=== PATIENT | male | born 1990 | race Caucasian/White ===

== ENCOUNTER 2020-10-03 09:47 | Outpatient (REF) | payer OTHER, SELFPAY ==
[2020-10-03 10:22] LABS: MANUAL DIFF FLAG NO
[2020-10-03 10:30] LABS: Eosinophils Absolute Auto 0.1 X10*3/uL (0.0-0.4); Eosinophils Percent Auto 2.5 % (0-4); Hematocrit 41.4 % (42-52); Hemoglobin 14.4 g/dl (14.0-18.0); Imm Gran Abs Auto 0.03 X10*3/uL (0.00-0.03); Imm Gran Pct Auto 0.7 % (0.0-0.4); Lymphocytes Absolute Auto 1.5 X10*3/uL (1.2-4.9); Lymphocytes Percent Auto 36.4 % (20-40); Mean Corpuscular HGB Conc 34.8 g/dl (31.0-36.0); Mean Corpuscular Hemoglobin 31.4 pg (27.0-33.0); Mean Corpuscular Volume 90.2 fL (80-98); Mean Platelet Volume 9.3 fL (9.4-12.4); Monocytes Absolute Auto 0.4 X10*3/uL (0.1-1.2); Monocytes Percent Auto 10.1 % (2-11); Neutrophils Percent Auto 49.3 % (45-73); Platelet Count 225 X10*3/uL (160-400); Red Blood Count 4.59 X10*6/uL (4.60-5.80); Red Cell Distribution Width 13.2 % (11.0-16.0); White Blood Count 4.1 X10*3/uL (4.8-10.8)
[2020-10-03 10:44] LABS: Glucose Urine UA 500 MG/DL (NEG); Leukocyte Esterase Urine NEG (NEG); Nitrite Urine NEG (NEG); Specific Gravity - Urine >= 1.030 (1.005-1.025); Urine Blood NEG (NEG); Urine Ketones >=80 MG/DL (NEG); Urine Protein TRACE MG/DL (NEG-TRACE)
[2020-10-03 10:47] LABS: Appearance Urine CLEAR; Color Urine YELLOW
[2020-10-03 11:09] LABS: Microalbum/Creatinine Ratio Ur 103.4 ug/mg cr
[2020-10-03 11:21] LABS: Alanine Aminotransferase 26 U/L (0-40); Albumin Level 4.5 g/dL (3.5-5.0); Alkaline Phosphatase 123 U/L (39-117); Anion Gap 24 (12-20); Aspartate Amino Transferase 17 U/L (5-37); Bilirubin Total 0.6 mg/dL (0.0-1.0); Blood Urea Nitrogen 11 mg/dL (9-16); Calcium 9.4 mg/dL (8.4-10.2); Carbon Dioxide 22 mmol/L (22-29); Chloride 97 mmol/L (96-108); Cholesterol 322 mg/dL; Estimated Glomerular Filt Rate > 60; Glucose Fasting 300 mg/dL (60-99); HDL Cholesterol 26 mg/dL; Potassium 3.5 mmol/l (3.3-5.1); Sodium 139 mmol/L (135-145); Total Protein 7.1 g/dL (6.5-8.0); Triglycerides 799 mg/dL
[2020-10-03 11:35] LABS: TSH reflex Free T4 0.93 mIU/mL (0.32-4.0)
[2020-10-06 20:47] LABS: Glutamic acid decarboxylase Ab 61 IU/mL (<5)
== END 2020-10-03 09:48 | disposition home or self-care (01) ==
LOC: HO.LAB 09:47
PROVIDERS: PCP Internal Medicine; Visit Provider Internal Medicine
DX: E11.9 Type 2 diabetes mellitus without complications (principal); Z79.4 Long term (current) use of insulin; I10 Essential (primary) hypertension
CPT/HCPCS: 36415; 80053; 80061; 81003; 82043; 84443; 84681; 85025; 86341

== ENCOUNTER 2021-02-01 14:55 | Outpatient (REF) | payer OTHER, SELFPAY ==
[2021-02-01 16:38] LABS: Estimated Average Glucose 332 mg/dL; Hemoglobin A1c % 13.2 %
[2021-02-01 16:47] LABS: Alanine Aminotransferase 32 U/L (0-40); Albumin Level 4.8 g/dL (3.5-5.0); Alkaline Phosphatase 119 U/L (39-117); Anion Gap 16 (12-20); Aspartate Amino Transferase 19 U/L (5-37); Bilirubin Total 0.3 mg/dL (0.0-1.0); Blood Urea Nitrogen 13 mg/dL (9-16); Calcium 10.3 mg/dL (8.4-10.2); Carbon Dioxide 29 mmol/L (22-29); Chloride 94 mmol/L (96-108); Cholesterol 210 mg/dL; Estimated Glomerular Filt Rate > 60; Glucose Random 279 mg/dL (60-115); HDL Cholesterol 35 mg/dL; LDL Cholesterol Calculated 118 mg/dl; Potassium 4.1 mmol/L (3.3-5.1); Sodium 135 mmol/L (135-145); Total Protein 7.5 g/dL (6.5-8.0); Triglycerides 288 mg/dL
[2021-02-01 16:59] LABS: Creatinine Urine 56.48 mg/dL
[2021-02-01 17:09] LABS: Free T4 (Free Thyroxine) 1.12 ng/dL (0.71-1.85); Thyroid Stimulating Hormone 0.48 uIU/mL (0.32-4.0); Vitamin D 25-OH Total 23.7 ng/mL (>30)
[2021-02-02 13:37] LABS: Immunoglobulin A 218 mg/dL (47-310)
[2021-02-02 17:41] LABS: LDL Cholesterol Direct 126 mg/dL (<100)
[2021-02-04 22:42] LABS: Transglutaminase Ab IgG 2 U/mL
[2021-02-10 12:47] LABS: Endomysial IgA Antibody Negative (Negative)
== END 2021-02-01 14:56 | disposition home or self-care (01) ==
LOC: HO.LAB 14:55
PROVIDERS: PCP Internal Medicine; Visit Provider Internal Medicine
DX: E10.65 Type 1 diabetes mellitus with hyperglycemia (principal); E78.5 Hyperlipidemia, unspecified; I10 Essential (primary) hypertension; E55.9 Vitamin D deficiency, unspecified; Z79.899 Other long term (current) drug therapy
CPT/HCPCS: 36415; 80053; 80061; 82043; 82306; 82784; 82947; 83036; 83516; 83721; 84439; 84443; 86255; 86256; 99202

== ENCOUNTER 2021-09-14 04:37 | Inpatient (IN) | payer OTHER, SELFPAY ==
[2021-09-14] VITALS (22 sets, daily range): BP systolic 116–194; BP diastolic 57–166; PULSE 108–125; RESP 18–30; TEMP 33.7–38.6; O2SAT 97–100; BMI 26.4
--- NOTE | 2021-09-14 | ECG_ITS ---
Test Reason : HYPERGLYCEMIA Blood Pressure : / mmHG Vent. Rate : 120 BPM Atrial Rate : 120 BPM P-R Int : 152 ms QRS Dur : 106 ms QT Int : 344 ms P-R-T Axes : 077 049 053 degrees QTc Int : 486 ms Poor data quality Sinus tachycardia Incomplete right bundle branch block When compared with ECG of 15-APR-2020 12:11, No significant changes seen Referred By: Fadumo Tay Electronically Signed By:Daniel Lee
--- NOTE | ~2021-09-14 | XR_ITS ---
EXAMINATION: XR CHEST CLINICAL INFORMATION: Fever. COMPARISON: Chest radiograph 04/12/2020. TECHNIQUE: Frontal view of the chest was obtained. FINDINGS: Bilateral supraclavicular subcutaneous emphysema is noted. Pneumomediastinum with scattered gas within the superior mediastinum is identified. Incidental gas extends the level of the aortopulmonary window. The heart size is normal. No effusions or pneumothoraces are identified. Focal airspace opacity is present in the left lung base projection with the anterior segment of the left fourth rib. Mild borderline airspace opacities are noted within the right lung base. XR/XR chest 1V IMPRESSION: *Mild bibasilar airspace opacities suspicious for pneumonia. Findings most pronounced the left lung base. *Pneumomediastinum and bilateral supraclavicular subcutaneous emphysema.
--- NOTE | ~2021-09-14 | XR_ITS ---
EXAMINATION: XR CHEST CLINICAL INFORMATION: Follow-up pneumomediastinum COMPARISON: 09/16/2021 TECHNIQUE: Frontal view of the chest was obtained. FINDINGS: Cardiomediastinum continues that slightly diminished.. Patchy bilateral airspace opacities. Heart and pulmonary vessels normal. XR/XR chest 1V IMPRESSION: Slight decrease in pneumomediastinum. Patchy airspace opacities persist.
--- NOTE | ~2021-09-14 | XR_ITS ---
EXAMINATION: XR CHEST CLINICAL INFORMATION: Pneumomediastinum. COMPARISON: Chest radiograph 09/15/2021 TECHNIQUE: Frontal view of the chest was obtained. FINDINGS: Bilateral cervical and supraclavicular subcutaneous emphysema is noted along with pneumomediastinum with findings most pronounced in the superior mediastinum. No pneumothoraces are identified. Patchy airspace opacities are present within the lung bases with findings most pronounced in the left lung base. Normal heart size. XR/XR chest 1V IMPRESSION: *No change compared with 09/15/2021. *Multifocal bibasilar airspace disease with findings most pronounced the left lung base suspicious for pneumonia. *Unchanged pneumomediastinum and bilateral cervical and supraclavicular subcutaneous emphysema.
--- NOTE | ~2021-09-14 | CT_ITS ---
EXAMINATION: CT ANGIOGRAM OF THE CHEST WITH AND WITHOUT CONTRAST (CT PULMONARY ANGIOGRAM FOR PE) CLINICAL INFORMATION: Reason for Exam +ddimer COMPARISON: Chest radiograph 09/16/2021, 09/15/2021. TECHNIQUE: Prior to contrast administration, noncontrast localization images were obtained. Subsequently, multidetector volumetric imaging was performed from the thoracic inlet to below the diaphragms following the administration of 97 mL Omnipaque 350 intravenous contrast. No contrast reaction reported Sagittal, coronal, and MIP oblique sagittal reformatted images were obtained on the CT workstation, uploaded to PACS, and reviewed. This CT examination was performed using dose optimization techniques as appropriate, variously including the following: *Automated exposure control *Adjustment of mA and/or kV according to patient size (this includes techniques or standardized protocols for targeted exams where dose is matched to indication/reason for exam; i.e. extremities or head) *Use of iterative reconstruction technique Total exam dose-length product 367 mGy-cm FINDINGS: Pulmonary arterial system: High density intraluminal opacification is present within the pulmonary arteries. No intraluminal filling defects are noted within the visualized pulmonary arterial system to suggest the presence of pulmonary emboli. The main and central pulmonary arteries are normal in caliber. Lungs and pleura: Multifocal groundglass and crazy paving type reticular opacities are present throughout the lungs. Findings are most pronounced in the left lung base. No pneumothoraces. No pleural effusions. Mediastinum and chest wall: Pneumomediastinum primarily within the superior mediastinum is present. The heart size is normal. No pericardial thickening or fluid collections. No mediastinal lymphadenopathy. The thyroid is partially included in the image [id number] and is normal in appearance. Pneumomediastinum is contiguous with soft tissue emphysematous changes extending into the visualized neck and supraclavicular regions. Visualized abdominal structures: Normal adrenal glands. Osseous structures: Minimal scattered anterior endplate osteophytosis of the visualized thoracic and lumbar spine. CT/CT angio chest PE protocol IMPRESSION: *CT pulmonary angiogram negative for pulmonary emboli. *Multifocal bilateral alveolar and interstitial disease of the lungs suspicious for COVID-19 infection. *Pneumomediastinum predominantly within the superior mediastinum extending into the visualized neck and supraclavicular soft tissues. Findings appear stable compared with chest radiograph 09/15/2021 8:12 AM. VTE: negative
[2021-09-14] MEDS: 0.9 % Sodium Chloride 1,000 ML 999 ML IV ×2 (04:50→05:58)
[2021-09-14 04:51] LABS: Glucose, Whole Blood > 600 mg/dL (60-115)
[2021-09-14 04:58] LABS: Glucose, Whole Blood > 600 mg/dL (60-115)
--- NOTE | 2021-09-14 04:58 | ED_ITS ---
HPI - SOB/Dyspnea General Chief Complaint: Dyspnea Stated Complaint: COVID Time Seen by Provider: 09/14/21 04:42 Source: patient Mode of arrival: ambulatory History of Present Illness HPI Narrative: 31-year-old male who is type 1 diabetic presents after being diagnosed with COVID prior to arrival with complaints significant shortness of breath but otherwise denies fevers, chills reports fatigue and states he has continued to use his insulin as prescribed. Related Data Home Medications Medication Instructions Recorded Confirmed insulin aspart U-100 100 unit/mL 15 unit SUBCUT TID ml 02/11/21 02/11/21 (3 mL) subcutaneous pen (Novolog Flexpen U-100 Insulin aspart) Previous Rx's Medication Instructions Recorded atorvastatin 40 mg tablet 40 mg PO DAILY 30 Days #30 tab 02/01/21 lancets 28 gauge (FreeStyle #100 ea 02/09/21 Lancets) amlodipine 5 mg tablet 5 mg PO DAILY #30 tab 04/03/21 blood sugar diagnostic (FreeStyle 1 strip MISCELLANEOUS TID #100 cap 04/03/21 Lite Strips) pen needle, diabetic 32 gauge x 1 ea SUBCUT QID #120 ea 04/09/21/32 (BD Ultra-Fine Shraddha Pen Needle) insulin glargine 100 unit/mL (3 28 unit (0.28 mL) SUBCUT QPM #15 ml 05/25/21 mL) subcutaneous pen (Lantus Solostar U-100 Insulin) lisinopril 20 mg tablet 20 mg PO DAILY #90 tab 07/26/21 Allergies Allergy/AdvReac Type Severity Reaction Status Date / Time No Known Allergies Allergy Verified 09/14/21 05:01 [No Known Allergies*] Review of Systems Review of Systems: Pertinent positives and negatives as stated in HPI 10 point review of systems is otherwise negative. [facility] Past Medical History Source: nursing notes reviewed Medical History HLD (hyperlipidemia) HTN (hypertension) Overweight (BMI 25.0-29.9) T1DM (type 1 diabetes mellitus) Vitamin D deficiency Surgical History No significant past surgical history Family History Family History Father Diabetes mellitus Hypertension Mother Hypertension Social History Social History Alcohol intake: current Alcohol intake frequency: a few times a week Substance Use Type: Marijuana Advance Directives: No Physical Exam Vital Signs: Vital Signs: Last Vital Signs Temp 92.8 F L 09/14/21 06:34 Pulse 124 H 09/14/21 06:34 Resp 23 H 09/14/21 06:34 BP 170/102 H 09/14/21 06:34 Pulse Ox 100 09/14/21 06:34 Oxygen Flow Rate 2 09/14/21 04:53 BMI result Body Mass Index 26.4 VITAL SIGNS: Reviewed. GENERAL: Well developed, well nourished, moderate-severe distress. HEAD: Normocephalic/atraumatic EYES: PERRLA, EOMI OROPHARYNX: no oral lesions noted, posterior pharynx clear, dry mucosa NECK: Supple, no adenopathy LUNGS: Normal breath sounds, who small breathing, significant retractions. SpO 2<100> CARDIOVASCULAR: Regular rate and rhythm without noted murmurs ABDOMEN: Soft, non-tender, non-distended with bowel sounds. SKIN: Inspection of the skin reveals no rashes, but diaphoretic and pale NEUROLOGIC: Alert and oriented x 4. Course Course Course Narrative: 31-year-old male with shortness of breath secondary to DKA, began receiving aggressive IV fluid resuscitation and when lab results were returned patient was started on IV insulin protocol and case was discussed with endodontics dentist. Patient is COVID-19 positive and intensivists accepted admission. MDM - SOB/Dyspnea Lab Data Result diagrams: 09/14/21 06:48 09/14/21 04:48 Labs: Lab Results 09/14/21 09/14/21 09/14/21 Range/Units 04:45 04:48 04:48 WBC 15.3 H (4.8-10.8) X10*3/uL RBC 5.45 (4.60-5.80) X10*6/uL Hgb 17.2 (14.0-18.0) g/dl Hct 52.9 H (42.0-52.0) % MCV 97.1 (80.0-98.0) fL MCH 31.6 (27.0-33.0) pg MCHC 32.5 (31.0-36.0) g/dl RDW 11.9 (11.0-16.0) % Plt Count 310 (160-400) X10*3/uL MPV 9.4 (9.4-12.4) fL Immature Gran % (Auto) 2.1 H (0.0-0.4) % Neut % (Auto) 70.6 (45-73) % Lymph % (Auto) 13.5 L (20-40) % [place] % (Auto) 13.5 H (2-11) % Eos % (Auto) 0.0 (0-4) % Baso % (Auto) 0.3 (0-2) % Lymph # (Auto) 2.1 (1.2-4.9) X10*3/uL [place] # (Auto) 2.1 H (0.1-1.2) X10*3/uL Eos # (Auto) 0.0 (0.0-0.4) X10*3/uL Baso # (Auto) 0.0 (0.0-0.2) X10*3/uL Abs Immat Gran (auto) 0.32 H (0.00-0.03) X10*3/uL Absolute Neuts (auto) 10.8 H (2.0-8.3) x10*3/uL Absolute Nucleated RBC 0.000 (0.0-0.012) X10*3/uL Nucleated RBC % (auto) 0.0 (0.0-0.2) /100WBC Smear Tech's Comments VERIFIED VBG pH (7.32-7.43) VBG pCO2 mmHg VBG pO2 mmHg VBG HCO3 (22-26) mmol/L VBG O2 Saturation % VBG Base Excess mmol/L Sodium 131 L (135-145) mmol/L Potassium 4.9 (3.3-5.1) mmol/L Chloride 92 L (96-108) mmol/L Carbon Dioxide < 5 L* D (22-29) mmol/L Anion Gap Not Reportable BUN 27 H (9-16) mg/dL Creatinine 2.47 H (0.5-1.4) mg/dL Estim Creat Clear Calc 48.4 Estimated GFR 31 POC Glucose > 600 H* (60-115) mg/dL Random Glucose 834 H* (60-115) mg/dL Lactic Acid (0.5-2.0) mmol/L Calcium 9.5 D (8.4-10.2) mg/dL Total Bilirubin 0.4 (0.0-1.0) mg/dL AST 26 (5-37) U/L ALT 29 (0-40) U/L Alkaline Phosphatase 119 H (39-117) U/L Total Protein 8.5 H (6.5-8.0) g/dL Albumin 4.7 (3.5-5.0) g/dL Urine Color Urine Appearance Urine pH (5.0-8.0) Ur Specific [place] (1.005-1.025) Urine Protein (NEG-TRACE) MG/DL Urine Glucose (UA) (NEG) MG/DL Urine Ketones (NEG) MG/DL Urine Blood (NEG) Urine Nitrite (NEG) Ur Leukocyte Esterase (NEG) Urine RBC (0) /HPF Urine WBC (0-4) /HPF Ur Squamous Epith Cells /LPF Urine Bacteria /LPF Hyaline Casts /LPF Granular Casts /LPF Acetone, Qual Large H (Negative) COVID-19 (LITA) (Negative) COVID-19 Clin Com 09/14/21 09/14/21 09/14/21 Range/Units 04:48 04:53 04:54 WBC (4.8-10.8) X10*3/uL RBC (4.60-5.80) X10*6/uL Hgb (14.0-18.0) g/dl Hct (42.0-52.0) % MCV (80.0-98.0) fL MCH (27.0-33.0) pg MCHC (31.0-36.0) g/dl RDW (11.0-16.0) % Plt Count (160-400) X10*3/uL MPV (9.4-12.4) fL Immature Gran % (Auto) (0.0-0.4) % Neut % (Auto) (45-73) % Lymph % (Auto) (20-40) % [place] % (Auto) (2-11) % Eos % (Auto) (0-4) % Baso % (Auto) (0-2) % Lymph # (Auto) (1.2-4.9) X10*3/uL [place] # (Auto) (0.1-1.2) X10*3/uL Eos # (Auto) (0.0-0.4) X10*3/uL Baso # (Auto) (0.0-0.2) X10*3/uL Abs Immat Gran (auto) (0.00-0.03) X10*3/uL Absolute Neuts (auto) (2.0-8.3) x10*3/uL Absolute Nucleated RBC (0.0-0.012) X10*3/uL Nucleated RBC % (auto) (0.0-0.2) /100WBC Smear Tech's Comments VBG pH 6.86 L* (7.32-7.43) VBG pCO2 12 mmHg VBG pO2 95 mmHg VBG HCO3 2 L (22-26) mmol/L VBG O2 Saturation 94.0 % VBG Base Excess -29.9 mmol/L Sodium (135-145) mmol/L Potassium (3.3-5.1) mmol/L Chloride (96-108) mmol/L Carbon Dioxide (22-29) mmol/L Anion Gap BUN (9-16) mg/dL Creatinine (0.5-1.4) mg/dL Estim Creat Clear Calc Estimated GFR POC Glucose > 600 H* (60-115) mg/dL Random Glucose (60-115) mg/dL Lactic Acid 8.2 H* (0.5-2.0) mmol/L Calcium (8.4-10.2) mg/dL Total Bilirubin (0.0-1.0) mg/dL AST (5-37) U/L ALT (0-40) U/L Alkaline Phosphatase (39-117) U/L Total Protein (6.5-8.0) g/dL Albumin (3.5-5.0) g/dL Urine Color Urine Appearance Urine pH (5.0-8.0) Ur Specific [place] (1.005-1.025) Urine Protein (NEG-TRACE) MG/DL Urine Glucose (UA) (NEG) MG/DL Urine Ketones (NEG) MG/DL Urine Blood (NEG) Urine Nitrite (NEG) Ur Leukocyte Esterase (NEG) Urine RBC (0) /HPF Urine WBC (0-4) /HPF Ur Squamous Epith Cells /LPF Urine Bacteria /LPF Hyaline Casts /LPF Granular Casts /LPF Acetone, Qual (Negative) COVID-19 (LITA) (Negative) COVID-19 Clin Com 09/14/21 09/14/21 Range/Units 04:58 05:38 WBC (4.8-10.8) X10*3/uL RBC (4.60-5.80) X10*6/uL Hgb (14.0-18.0) g/dl Hct (42.0-52.0) % MCV (80.0-98.0) fL MCH (27.0-33.0) pg MCHC (31.0-36.0) g/dl RDW (11.0-16.0) % Plt Count (160-400) X10*3/uL MPV (9.4-12.4) fL Immature Gran % (Auto) (0.0-0.4) % Neut % (Auto) (45-73) % Lymph % (Auto) (20-40) % [place] % (Auto) (2-11) % Eos % (Auto) (0-4) % Baso % (Auto) (0-2) % Lymph # (Auto) (1.2-4.9) X10*3/uL [place] # (Auto) (0.1-1.2) X10*3/uL Eos # (Auto) (0.0-0.4) X10*3/uL Baso # (Auto) (0.0-0.2) X10*3/uL Abs Immat Gran (auto) (0.00-0.03) X10*3/uL Absolute Neuts (auto) (2.0-8.3) x10*3/uL Absolute Nucleated RBC (0.0-0.012) X10*3/uL Nucleated RBC % (auto) (0.0-0.2) /100WBC Smear Tech's Comments VBG pH (7.32-7.43) VBG pCO2 mmHg VBG pO2 mmHg VBG HCO3 (22-26) mmol/L VBG O2 Saturation % VBG Base Excess mmol/L Sodium (135-145) mmol/L Potassium (3.3-5.1) mmol/L Chloride (96-108) mmol/L Carbon Dioxide (22-29) mmol/L Anion Gap BUN (9-16) mg/dL Creatinine (0.5-1.4) mg/dL Estim Creat Clear Calc Estimated GFR POC Glucose (60-115) mg/dL Random Glucose (60-115) mg/dL Lactic Acid (0.5-2.0) mmol/L Calcium (8.4-10.2) mg/dL Total Bilirubin (0.0-1.0) mg/dL AST (5-37) U/L ALT (0-40) U/L Alkaline Phosphatase (39-117) U/L Total Protein (6.5-8.0) g/dL Albumin (3.5-5.0) g/dL Urine Color YELLOW Urine Appearance CLEAR Urine pH 5.5 (5.0-8.0) Ur Specific [place] >= 1.030 H (1.005-1.025) Urine Protein 1+ H (NEG-TRACE) MG/DL Urine Glucose (UA) >=1000 H (NEG) MG/DL Urine Ketones >=80 (NEG) MG/DL Urine Blood 1+ H (NEG) Urine Nitrite NEG (NEG) Ur Leukocyte Esterase NEG (NEG) Urine RBC 1-4 (0) /HPF Urine WBC 1-4 (0-4) /HPF Ur Squamous Epith Cells 1+ /LPF Urine Bacteria 1+ /LPF Hyaline Casts 1-4 /LPF Granular Casts 5-9 /LPF Acetone, Qual (Negative) COVID-19 (LITA) Positive A (Negative) COVID-19 Clin Com See Note ECG Data Attestation: I personally reviewed and interpreted this ECG as follows: Prior ECG tracings: not available for review Interpretation: Sinus tachycardia, HR-120, no STEMI, TX/QTC a within normal limits. Discharge Plan Discharge Clinical Impression: DKA (diabetic ketoacidosis), COVID-19 Patient Disposition: Admitted As Inpatient
[2021-09-14 05:06] LABS: Basophils Percent Auto 0.3 % (0-2); Hematocrit 52.9 % (42.0-52.0); Hemoglobin 17.2 g/dl (14.0-18.0); Imm Gran Abs Auto 0.32 X10*3/uL (0.00-0.03); Imm Gran Pct Auto 2.1 % (0.0-0.4); Lymphocytes Absolute Auto 2.1 X10*3/uL (1.2-4.9); Lymphocytes Percent Auto 13.5 % (20-40); MANUAL DIFF FLAG SCAN; Mean Corpuscular HGB Conc 32.5 g/dl (31.0-36.0); Mean Corpuscular Hemoglobin 31.6 pg (27.0-33.0); Mean Corpuscular Volume 97.1 fL (80.0-98.0); Mean Platelet Volume 9.4 fL (9.4-12.4); Monocytes Absolute Auto 2.1 X10*3/uL (0.1-1.2); Monocytes Percent Auto 13.5 % (2-11); Neutrophils Absolute Auto 10.8 x10*3/uL (2.0-8.3); Neutrophils Percent Auto 70.6 % (45-73); Platelet Count 310 X10*3/uL (160-400); Red Blood Count 5.45 X10*6/uL (4.60-5.80); Red Cell Distribution Width 11.9 % (11.0-16.0); SCAN SMEAR FLAG 1; White Blood Count 15.3 X10*3/uL (4.8-10.8)
[2021-09-14 05:11] LABS: VBG Base Excess -29.9 mmol/L; VBG HCO3 2 mmol/L (22-26); VBG pCO2 12 mmHg; VBG pO2 95 mmHg
[2021-09-14 05:11] LABS: Venous Blood Gas Refer to POC result
[2021-09-14 05:12] LABS: VBG pH 6.86 (7.32-7.43)
[2021-09-14 05:14] LABS: Lactic Acid 8.2 mmol/L (0.5-2.0)
[2021-09-14 05:15] LABS: SLIDE REVIEW VERIFIED
[2021-09-14] MEDS: 0.9 % Sodium Chloride 2,000 ML 999 ML IV (05:19)
[2021-09-14 05:20] LABS: Acetone, serum QL Large (Negative)
[2021-09-14 05:24] LABS: Alanine Aminotransferase 29 U/L (0-40); Albumin Level 4.7 g/dL (3.5-5.0); Alkaline Phosphatase 119 U/L (39-117); Aspartate Amino Transferase 26 U/L (5-37); Bilirubin Total 0.4 mg/dL (0.0-1.0); Blood Urea Nitrogen 27 mg/dL (9-16); Calcium 9.5 mg/dL (8.4-10.2); Carbon Dioxide < 5 mmol/L (22-29); Chloride 92 mmol/L (96-108); Creatinine Clr Calc Pharmacy 48.4; Estimated Glomerular Filt Rate 31; Potassium 4.9 mmol/L (3.3-5.1); Sodium 131 mmol/L (135-145); Total Protein 8.5 g/dL (6.5-8.0)
[2021-09-14 05:26] LABS: COVID-19 Test Positive (Negative)
[2021-09-14 05:35] LABS: Glucose Random 834 mg/dL (60-115)
[2021-09-14 05:45] LABS: Appearance Urine CLEAR; Color Urine YELLOW; Glucose Urine UA >=1000 MG/DL (NEG); Leukocyte Esterase Urine NEG (NEG); Nitrite Urine NEG (NEG); PH 5.5 (5.0-8.0); Specific Gravity - Urine >= 1.030 (1.005-1.025); UACC Culture Trigger NO; Urine Blood 1+ (NEG); Urine Ketones >=80 MG/DL (NEG); Urine Protein 1+ MG/DL (NEG-TRACE)
[2021-09-14] MEDS: Insulin Regular, Human 100 UNIT/ML 3 ML VIAL 10 UNIT IVPUSH (05:47)
[2021-09-14] MEDS: Insulin Regular/NS 100 UNIT/100 ML PLAST..BAG 8 UNIT IVCONT (05:52)
[2021-09-14 05:59] LABS: Cancel Lactic Acid Canceled
[2021-09-14 06:01] LABS: Bacteria Urine 1+ /LPF; Squamous Epithelial Cell Urine 1+ /LPF
--- NOTE | 2021-09-14 06:10 | PC.NURSE ---
Per Dr Tay, Dr Horton wants insulin increased from 8 units/hr to 10 units/hr, wants only 3L of NS and then 4th L to be LR. This RN to medicate per MAR
[2021-09-14] MEDS: Lactated Ringers 1,000 ML 200 ML IVCONT ×2 (06:16→15:17)
[2021-09-14] MEDS: Cholecalciferol (Vitamin D3) 25 MCG TABLET 50 MCG PO (06:21)
[2021-09-14] MEDS: Famotidine/PF 20 MG/2 ML VIAL IVPUSH (06:21)
[2021-09-14] MEDS: Potassium Chloride Packet 20 MEQ PACKET 40 MEQ PO ×2 (06:22→16:41)
--- NOTE | 2021-09-14 06:29 | PM.CCHP ---
History of Present Illness Date of Service: 09/14/21 Attending physician on admission: Francois Horton Chief Complaint: dyspnea Patient is a 31-year-old male with a past medical history of type 1 diabetes, hypertension, hyperlipidemia, vitamin-D deficiency and a recent diagnosis of COVID-19 who is complaining of shortness of breath, headache, abdominal pain, nausea and vomiting. Patient states he has been vomiting every 2 hours for the last 2 days. He started feeling these symptoms 2 days ago and was tested yesterday for COVID-19, he tested positive. He states he takes 25 units of Lantus each night along with NovoLog according to his sliding scale. He states the last time he took his insulin was a last evening, 25U Lantus. He has been a T1D for 1.5years. He also states he takes blood pressure medication and thinks it could be lisinopril but he is unsure of the dose. He denies any chest pain, fevers, chills or body aches. Review of Systems Review of Systems: Yes all other systems are reviewed and are negative PMFSH Past Medical History Medical History HLD (hyperlipidemia) HTN (hypertension) Overweight (BMI 25.0-29.9) T1DM (type 1 diabetes mellitus) Vitamin D deficiency Family History Family History Father Diabetes mellitus Hypertension Mother Hypertension Surgical History Surgical History No significant past surgical history Social History Social History Alcohol intake: current Alcohol intake frequency: a few times a week Substance Use Type: Marijuana Advance Directives: No Meds Allergies Allergy/AdvReac Type Severity Reaction Status Date / Time No Known Allergies Allergy Verified 09/14/21 05:01 [No Known Allergies*] Active Medications: Current Medications Sodium Chloride (Ns) 2,000 mls @ 999 mls/hr IV .Q2H1M STA Stop: 09/14/21 07:14 Last Admin: 09/14/21 05:19 Dose: 999 mls/hr Documented by: Insulin Human Regular (Myxredlin) 100 unit in 100 mls @ 10 mls/hr IVCONT .Q10H SMILEY; Protocol Last Titration: 09/14/21 06:12 Dose: 10 units/hr, 10 mls/hr Documented by: Sodium Chloride (Ns) 1,000 mls @ 999 mls/hr IV .Q1H1M SMILEY Stop: 09/14/21 07:00 Last Infusion: 09/14/21 06:13 Dose: Infused Documented by: Lactated Ringer's (Lr) 1,000 mls @ 200 mls/hr IVCONT .Q5H SMILEY Last Admin: 09/14/21 06:16 Dose: 200 mls/hr Documented by: Pharmacy Consult (Consult Rx Perform Med Rec) 1 each MISCELLANE ONCE PRN PRN Reason: Consult order Home Medications Medication Instructions Recorded Confirmed Last Taken Type insulin aspart U-100 100 unit/mL 15 unit SUBCUT TID ml 02/11/21 02/11/21 Unknown History (3 mL) subcutaneous pen (Novolog Flexpen U-100 Insulin aspart) Physical Exam Vital Signs: Vital Signs: Last Vital Signs Pulse 118 H 09/14/21 05:42 Resp 30 H 09/14/21 05:42 BP 179/108 H 09/14/21 05:42 Pulse Ox 100 09/14/21 05:42 Oxygen Flow Rate 2 09/14/21 04:53 BMI result Body Mass Index 26.4 Const: General: cooperative, well developed, acute distress (tachypneic) and tired appearing Nutritional Appearance: average body habitus Orientation/consciousness: patient oriented x3 Limitations: no limitations HENMT: Head: Yes normal to inspection Mouth: mucous membranes dry (dry lips) Eyes: General: appearance normal, both eyes and all related structures Pupils: Equal, round and reactive pupils present EOM: EOMs intact bilaterally Neck: Neck: Yes normal visual inspection and Yes full ROM Resp: Effort & Inspection: able to speak in complete sentences and tachypneic (Kussmaul breathing) Auscultation: clear to auscultation bilaterally Cardio: Rate: tachycardic Rhythm: regular rhythm Heart sounds: normal S1 and S2 GI: Inspection: Yes normal to inspection Palpation (GI): Soft to palpation and nontender Skin: General skin exam: no rashes or lesions noted Neuro: General: patient oriented x3 Cranial nerves: Yes Equal, round and reactive pupils present Extrem: General: Yes normal to inspection and Yes no pedal edema Results Labs CBC and Chem 7: 09/14/21 04:48 09/14/21 04:48 Labs: Laboratory Results - last 24 hr 09/14/21 09/14/21 09/14/21 04:45 04:48 04:48 MCV 97.1 MCH 31.6 MCHC 32.5 RDW 11.9 Plt Count 310 MPV 9.4 Immature Gran % (Auto) 2.1 H Neut % (Auto) 70.6 Lymph % (Auto) 13.5 L [place] % (Auto) 13.5 H Eos % (Auto) 0.0 Baso % (Auto) 0.3 Lymph # (Auto) 2.1 [place] # (Auto) 2.1 H Eos # (Auto) 0.0 Baso # (Auto) 0.0 Abs Immat Gran (auto) 0.32 H Absolute Neuts (auto) 10.8 H Absolute Nucleated RBC 0.000 Nucleated RBC % (auto) 0.0 Smear Tech's Comments VERIFIED VBG pH VBG pCO2 VBG pO2 VBG HCO3 VBG O2 Saturation VBG Base Excess Anion Gap Not Reportable Estim Creat Clear Calc 48.4 Estimated GFR 31 POC Glucose > 600 H* Random Glucose 834 H* Lactic Acid Calcium 9.5 D Total Bilirubin 0.4 AST 26 ALT 29 Alkaline Phosphatase 119 H Total Protein 8.5 H Albumin 4.7 Urine Color Urine Appearance Urine pH Ur Specific [place] Urine Protein Urine Glucose (UA) Urine Ketones Urine Blood Urine Nitrite Ur Leukocyte Esterase Urine RBC Urine WBC Ur Squamous Epith Cells Urine Bacteria Hyaline Casts Granular Casts Acetone, Qual Large H COVID-19 (LITA) COVID-19 Clin Com 09/14/21 09/14/21 09/14/21 04:48 04:53 04:54 MCV MCH MCHC RDW Plt Count MPV Immature Gran % (Auto) Neut % (Auto) Lymph % (Auto) [place] % (Auto) Eos % (Auto) Baso % (Auto) Lymph # (Auto) [place] # (Auto) Eos # (Auto) Baso # (Auto) Abs Immat Gran (auto) Absolute Neuts (auto) Absolute Nucleated RBC Nucleated RBC % (auto) Smear Tech's Comments VBG pH 6.86 L* VBG pCO2 12 VBG pO2 95 VBG HCO3 2 L VBG O2 Saturation 94.0 VBG Base Excess -29.9 Anion Gap Estim Creat Clear Calc Estimated GFR POC Glucose > 600 H* Random Glucose Lactic Acid 8.2 H* Calcium Total Bilirubin AST ALT Alkaline Phosphatase Total Protein Albumin Urine Color Urine Appearance Urine pH Ur Specific [place] Urine Protein Urine Glucose (UA) Urine Ketones Urine Blood Urine Nitrite Ur Leukocyte Esterase Urine RBC Urine WBC Ur Squamous Epith Cells Urine Bacteria Hyaline Casts Granular Casts Acetone, Qual COVID-19 (LITA) COVID-19 Clin Com 09/14/21 09/14/21 04:58 05:38 MCV MCH MCHC RDW Plt Count MPV Immature Gran % (Auto) Neut % (Auto) Lymph % (Auto) [place] % (Auto) Eos % (Auto) Baso % (Auto) Lymph # (Auto) [place] # (Auto) Eos # (Auto) Baso # (Auto) Abs Immat Gran (auto) Absolute Neuts (auto) Absolute Nucleated RBC Nucleated RBC % (auto) Smear Tech's Comments VBG pH VBG pCO2 VBG pO2 VBG HCO3 VBG O2 Saturation VBG Base Excess Anion Gap Estim Creat Clear Calc Estimated GFR POC Glucose Random Glucose Lactic Acid Calcium Total Bilirubin AST ALT Alkaline Phosphatase Total Protein Albumin Urine Color YELLOW Urine Appearance CLEAR Urine pH 5.5 Ur Specific [place] >= 1.030 H Urine Protein 1+ H Urine Glucose (UA) >=1000 H Urine Ketones >=80 Urine Blood 1+ H Urine Nitrite NEG Ur Leukocyte Esterase NEG Urine RBC 1-4 Urine WBC 1-4 Ur Squamous Epith Cells 1+ Urine Bacteria 1+ Hyaline Casts 1-4 Granular Casts 5-9 Acetone, Qual COVID-19 (LITA) Positive A COVID-19 Clin Com See Note Assessment and Plan (1) DKA (diabetic ketoacidosis): Status: Acute Fluids, insulin, monitor labs, replace K as needed (2) HTN (hypertension): Qualifiers: Hypertension type: unspecified Qualified Code(s): I10 - Essential (primary) hypertension Status: Acute continue home meds (3) COVID-19: Status: Acute Monitor symptoms
--- NOTE | 2021-09-14 06:34 | PC.NURSE ---
unable to get temp on arrival d/t kussmaul resps and inability for pt to keep mouth closed long enough.
--- NOTE | 2021-09-14 06:40 | PC.NURSE ---
anthony aware of core temp still reading 92.8 pt bundled with warm blankets. no julian hugger blankets in stock room, ICU being contacted for supplies.
--- NOTE | 2021-09-14 06:48 | PC.NURSE ---
This RN rechecked pt's BGL, still reading HI. glucometer quality assurance inspector performed, POC to be reassessed again. Dr Horton TT with results. Phleb at bedside collecting labs.
--- NOTE | 2021-09-14 06:49 | PC.NURSE ---
Per Dr Horton, continue with 10U/hr insulin gtt.
--- NOTE | 2021-09-14 06:51 | PC.NURSE ---
Humble Malagon RN at bedside placing pt on julian huggzuleima
--- NOTE | 2021-09-14 06:56 | PC.NURSE ---
Repeat POC BGL is [address] Horton TT to be made aware, awaiting reply
[2021-09-14 06:58] LABS: Hematocrit 48.6 % (42.0-52.0)
[2021-09-14 07:00] LABS: Glucose, Whole Blood 538 mg/dL (60-115)
[2021-09-14 07:00] LABS: Glucose, Whole Blood > 600 mg/dL (60-115)
--- NOTE | 2021-09-14 07:01 | PC.NURSE ---
per Stemp continue at 10u/hr and recheck sugar in 1h
[2021-09-14 07:45] LABS: Blood Urea Nitrogen 25 mg/dL (9-16); Calcium 8.2 mg/dL (8.4-10.2); Carbon Dioxide < 5 mmol/L (22-29); Chloride 106 mmol/L (96-108); Creatinine Clr Calc Pharmacy 62.3; Estimated Glomerular Filt Rate 42; Glucose Random 661 mg/dL (60-115); Magnesium 2.6 mg/dL (1.6-2.6); Phosphorus 5.5 mg/dL (2.7-4.5); Potassium 5.1 mmol/L (3.3-5.1); Sodium 135 mmol/L (135-145)
[2021-09-14 08:21] LABS: Glucose, Whole Blood 447 mg/dL (60-115)
[2021-09-14 09:00] LABS: Glucose, Whole Blood 371 mg/dL (60-115)
--- NOTE | 2021-09-14 09:17 | PHA.MEDREC ---
Pharmacy Consult ? Medication Reconciliation Pharmacy has completed the medication reconciliation.
[2021-09-14] MEDS: lisinopriL 20 MG TABLET PO (09:38)
[2021-09-14] MEDS: amLODIPine Besylate 5 MG TABLET PO (09:38)
[2021-09-14] MEDS: Insulin Regular/NS 100 UNIT/100 ML PLAST..BAG IVCONT ×2 (09:39→13:00)
--- NOTE | 2021-09-14 10:03 | P.PNCC_ITS ---
Subjective Subjective Date of Service: 09/14/21 Interval History: 31 yo M admitted to ICU with DKA. Usual treatment. Doing well so far. The patient tested positive for COVID yesterday, and is so far asymptomatic, at least as far as respiratory symptoms go. I will start him on the [facility] cc post exposure prophylaxis protocol. I've written him for hydroxychloroquine, ivermectin (q48 hour x 2 doses), aspirin, vitamin-D, vitamin-C, and Pepcid. I've discussed all that with him and he has given me his consent. Critical Care Time (minutes): 0 Physical Exam Vital Signs: Vital Signs: Last Vital Signs Temp 98.4 F 09/14/21 09:00 Pulse 123 H 09/14/21 09:38 Resp 29 H 09/14/21 09:00 BP 177/105 H 09/14/21 09:38 Pulse Ox 99 09/14/21 09:00 Oxygen Flow Rate 2 09/14/21 04:53 BMI result Body Mass Index 26.4 Objective Data Labs CBC & Chem 7: 09/14/21 06:48 09/14/21 06:48 Labs: Laboratory Results - last 24 hr 09/14/21 09/14/21 09/14/21 04:45 04:48 04:48 WBC 15.3 H RBC 5.45 Hgb 17.2 Hct 52.9 H MCV 97.1 MCH 31.6 MCHC 32.5 RDW 11.9 Plt Count 310 MPV 9.4 Immature Gran % (Auto) 2.1 H Neut % (Auto) 70.6 Lymph % (Auto) 13.5 L [place] % (Auto) 13.5 H Eos % (Auto) 0.0 Baso % (Auto) 0.3 Lymph # (Auto) 2.1 [place] # (Auto) 2.1 H Eos # (Auto) 0.0 Baso # (Auto) 0.0 Abs Immat Gran (auto) 0.32 H Absolute Neuts (auto) 10.8 H Absolute Nucleated RBC 0.000 Nucleated RBC % (auto) 0.0 Smear Tech's Comments VERIFIED VBG pH VBG pCO2 VBG pO2 VBG HCO3 VBG O2 Saturation VBG Base Excess Sodium 131 L Potassium 4.9 Chloride 92 L Carbon Dioxide < 5 L* D Anion Gap Not Reportable BUN 27 H Creatinine 2.47 H Estim Creat Clear Calc 48.4 Estimated GFR 31 POC Glucose > 600 H* Random Glucose 834 H* Lactic Acid Calcium 9.5 D Phosphorus Magnesium Total Bilirubin 0.4 AST 26 ALT 29 Alkaline Phosphatase 119 H Total Protein 8.5 H Albumin 4.7 Urine Color Urine Appearance Urine pH Ur Specific [place] Urine Protein Urine Glucose (UA) Urine Ketones Urine Blood Urine Nitrite Ur Leukocyte Esterase Urine RBC Urine WBC Ur Squamous Epith Cells Urine Bacteria Hyaline Casts Granular Casts Acetone, Qual Large H COVID-19 (LITA) COVID-19 Clin [place] 09/14/21 09/14/21 09/14/21 04:48 04:53 04:54 WBC RBC Hgb Hct MCV MCH MCHC RDW Plt Count MPV Immature Gran % (Auto) Neut % (Auto) Lymph % (Auto) [place] % (Auto) Eos % (Auto) Baso % (Auto) Lymph # (Auto) [place] # (Auto) Eos # (Auto) Baso # (Auto) Abs Immat Gran (auto) Absolute Neuts (auto) Absolute Nucleated RBC Nucleated RBC % (auto) Smear Tech's Comments VBG pH 6.86 L* VBG pCO2 12 VBG pO2 95 VBG HCO3 2 L VBG O2 Saturation 94.0 VBG Base Excess -29.9 Sodium Potassium Chloride Carbon Dioxide Anion Gap BUN Creatinine Estim Creat Clear Calc Estimated GFR POC Glucose > 600 H* Random Glucose Lactic Acid 8.2 H* Calcium Phosphorus Magnesium Total Bilirubin AST ALT Alkaline Phosphatase Total Protein Albumin Urine Color Urine Appearance Urine pH Ur Specific [place] Urine Protein Urine Glucose (UA) Urine Ketones Urine Blood Urine Nitrite Ur Leukocyte Esterase Urine RBC Urine WBC Ur Squamous Epith Cells Urine Bacteria Hyaline Casts Granular Casts Acetone, Qual COVID-19 (LITA) COVID-19 [place] 09/14/21 09/14/21 09/14/21 04:58 05:38 06:45 WBC RBC Hgb Hct MCV MCH MCHC RDW Plt Count MPV Immature Gran % (Auto) Neut % (Auto) Lymph % (Auto) [place] % (Auto) Eos % (Auto) Baso % (Auto) Lymph # (Auto) [place] # (Auto) Eos # (Auto) Baso # (Auto) Abs Immat Gran (auto) Absolute Neuts (auto) Absolute Nucleated RBC Nucleated RBC % (auto) Smear Tech's Comments VBG pH VBG pCO2 VBG pO2 VBG HCO3 VBG O2 Saturation VBG Base Excess Sodium Potassium Chloride Carbon Dioxide Anion Gap BUN Creatinine Estim Creat Clear Calc Estimated GFR POC Glucose > 600 H* Random Glucose Lactic Acid Calcium Phosphorus Magnesium Total Bilirubin AST ALT Alkaline Phosphatase Total Protein Albumin Urine Color YELLOW Urine Appearance CLEAR Urine pH 5.5 Ur Specific [place] >= 1.030 H Urine Protein 1+ H Urine Glucose (UA) >=1000 H Urine Ketones >=80 Urine Blood 1+ H Urine Nitrite NEG Ur Leukocyte Esterase NEG Urine RBC 1-4 Urine WBC 1-4 Ur Squamous Epith Cells 1+ Urine Bacteria 1+ Hyaline Casts 1-4 Granular Casts 5-9 Acetone, Qual COVID-19 (LITA) Positive A COVID-19 [facility] [employer] Com See Note 09/14/21 09/14/21 09/14/21 06:48 06:48 06:54 WBC RBC Hgb 16.0 Hct 48.6 MCV MCH MCHC RDW Plt Count MPV Immature Gran % (Auto) Neut % (Auto) Lymph % (Auto) [place] % (Auto) Eos % (Auto) Baso % (Auto) Lymph # (Auto) [place] # (Auto) Eos # (Auto) Baso # (Auto) Abs Immat Gran (auto) Absolute Neuts (auto) Absolute Nucleated RBC Nucleated RBC % (auto) Smear Tech's Comments VBG pH VBG pCO2 VBG pO2 VBG HCO3 VBG O2 Saturation VBG Base Excess Sodium 135 Potassium 5.1 Chloride 106 Carbon Dioxide < 5 L* Anion Gap TNP BUN 25 H Creatinine 1.92 H Estim Creat Clear Calc 62.3 Estimated GFR 42 POC Glucose 538 H* Random Glucose 661 H* Lactic Acid Calcium 8.2 L D Phosphorus 5.5 H Magnesium 2.6 Total Bilirubin AST ALT Alkaline Phosphatase Total Protein Albumin Urine Color Urine Appearance Urine pH Ur Specific [place] Urine Protein Urine Glucose (UA) Urine Ketones Urine Blood Urine Nitrite Ur Leukocyte Esterase Urine RBC Urine WBC Ur Squamous Epith Cells Urine Bacteria Hyaline Casts Granular Casts Acetone, Qual COVID-19 (LITA) COVID-19 Kashmi 09/14/21 09/14/21 07:58 08:55 WBC RBC Hgb Hct MCV MCH MCHC RDW Plt Count MPV Immature Gran % (Auto) Neut % (Auto) Lymph % (Auto) [place] % (Auto) Eos % (Auto) Baso % (Auto) Lymph # (Auto) [place] # (Auto) Eos # (Auto) Baso # (Auto) Abs Immat Gran (auto) Absolute Neuts (auto) Absolute Nucleated RBC Nucleated RBC % (auto) Smear Tech's Comments VBG pH VBG pCO2 VBG pO2 VBG HCO3 VBG O2 Saturation VBG Base Excess Sodium Potassium Chloride Carbon Dioxide Anion Gap BUN Creatinine Estim Creat Clear Calc Estimated GFR POC Glucose 447 H* 371 H* Random Glucose Lactic Acid Calcium Phosphorus Magnesium Total Bilirubin AST ALT Alkaline Phosphatase Total Protein Albumin Urine Color Urine Appearance Urine pH Ur Specific [place] Urine Protein Urine Glucose (UA) Urine Ketones Urine Blood Urine Nitrite Ur Leukocyte Esterase Urine RBC Urine WBC Ur Squamous Epith Cells Urine Bacteria Hyaline Casts Granular Casts Acetone, Qual COVID-19 (LITA) COVID-19 Clin Com Quality Stroke Does the patient have a stroke diagnosis?: No VTE Prior VTE?: No VTE Risk Level:: Medical - low VTE Device Contraindication: N/A - Device Ordered VTE Drug Contraindication: N/A - Med Ordered
[2021-09-14 10:35] LABS: Glucose, Whole Blood 238 mg/dL (60-115)
--- NOTE | 2021-09-14 10:46 | MHC.CM.PN ---
Pt in ICU with DKA and COVID+: Information obtained from Pt, EMR and pt's parent, Chitra. Pt resides with family, drives, independent and has no identifiable barriers to care. He has working dm monitoring equipment. Pt is unvaccinated. D/C will be for a return to home: family can transport.
[2021-09-14] MEDS: Lactated Ringers 1,000 ML 300 ML IVCONT (10:55)
[2021-09-14] MEDS: Aspirin 325 MG TABLET PO (10:58)
[2021-09-14] MEDS: Zinc Sulfate 220 MG CAPSULE PO ×2 (10:59→19:51)
[2021-09-14] MEDS: Hydroxychloroquine Sulfate 200 MG TABLET PO ×2 (10:59→19:51)
[2021-09-14 11:21] LABS: Glucose, Whole Blood 247 mg/dL (60-115)
[2021-09-14 12:16] LABS: Glucose, Whole Blood 252 mg/dL (60-115)
[2021-09-14 13:14] LABS: Glucose, Whole Blood 198 mg/dL (60-115)
[2021-09-14 13:54] LABS: Anion Gap 20 (12-20); Blood Urea Nitrogen 15 mg/dL (9-16); Calcium 7.8 mg/dL (8.4-10.2); Carbon Dioxide 10 mmol/L (22-29); Chloride 112 mmol/L (96-108); Creatinine Clr Calc Pharmacy 89.9; Estimated Glomerular Filt Rate > 60; Glucose Random 228 mg/dL (60-115); Phosphorus 1.2 mg/dL (2.7-4.5); Potassium 4.5 mmol/L (3.3-5.1); Sodium 137 mmol/L (135-145)
[2021-09-14 14:15] LABS: Glucose, Whole Blood 207 mg/dL (60-115)
[2021-09-14 15:12] LABS: Glucose, Whole Blood 206 mg/dL (60-115)
[2021-09-14] MEDS: Ascorbic Acid 500 MG TABLET 1000 MG PO ×3 (15:14→19:51)
[2021-09-14] MEDS: Sodium,Potassium Phosphates POWD.PACK 2 PACKET PO ×2 (15:14→17:48)
[2021-09-14] MEDS: Magnesium Sulfate/H2O 2 GM/50 ML PIGGYBACK IV (15:15)
[2021-09-14 16:37] LABS: Glucose, Whole Blood 189 mg/dL (60-115)
[2021-09-14] MEDS: Dextrose 5 % and Lactated Ring 1,000 ML 200 ML IVCONT (17:15)
[2021-09-14 17:32] LABS: Glucose, Whole Blood 210 mg/dL (60-115)
[2021-09-14] MEDS: Famotidine 20 MG TABLET 40 MG PO (19:50)
[2021-09-14] MEDS: Melatonin 3 MG TABLET 9 MG PO (19:51)
[2021-09-14 20:08] LABS: Glucose, Whole Blood 239 mg/dL (60-115)
[2021-09-14 20:31] LABS: Anion Gap 16 (12-20); Blood Urea Nitrogen 10 mg/dL (9-16); Carbon Dioxide 15 mmol/L (22-29); Chloride 108 mmol/L (96-108); Creatinine Clr Calc Pharmacy 108.7; Estimated Glomerular Filt Rate > 60; Glucose Random 225 mg/dL (60-115); Magnesium 2.1 mg/dL (1.6-2.6); Phosphorus 1.8 mg/dL (2.7-4.5); Potassium 3.9 mmol/L (3.3-5.1); Sodium 135 mmol/L (135-145)
[2021-09-14] MEDS: Acetaminophen 325 MG TABLET 650 MG PO (21:20)
[2021-09-14] MEDS: Insulin Lispro 100 UNIT/ML 3 ML VIAL SUBCUT (21:21)
[2021-09-14] MEDS: Insulin Glargine,Hum.rec.anlog 100 UNIT/ML 10 ML VIAL 30 UNIT SUBCUT (21:21)
--- NOTE | 2021-09-14 21:30 | P.PNCC_ITS ---
Subjective Subjective Date of Service: 09/14/21 Interval History: Pt was admitted early this morning in DKA, also positive for COVID however does not have any COVID symptoms, his abdominal pain, nausea and vomiting were likely due to DKA. Patient has been on a insulin drip all day, his gap is closed, his bicarb is still low at 15 but is point of cares are down to the low 200s. His only complaint is a little bit of nausea, he has been eating. I have written him for Lantus and insulin sliding scale and have DC'd the insulin drip. Critical Care Time (minutes): 30 Comment: discussed with Dr. Horton, he agreed with assessment and plan to downgrade patient to [facility] [place] [place] Physical Exam Vital Signs: Vital Signs: Last Vital Signs Temp 101.1 F H 09/14/21 21:00 Pulse 109 H 09/14/21 21:00 Resp 22 H 09/14/21 21:00 BP 130/82 09/14/21 21:00 Pulse Ox 98 09/14/21 21:00 Oxygen Flow Rate 2 09/14/21 04:53 BMI result Body Mass Index 26.4 Const: General: cooperative, healthy appearing, comfortable, no acute distress and well developed Orientation/consciousness: patient oriented x3 Limitations: no limitations HENMT: Head: Yes normal to inspection Eyes: General: appearance normal, both eyes and all related structures Neck: Neck: Yes normal visual inspection and Yes full ROM Resp: Effort & Inspection: normal respiratory effort and able to speak in complete sentences Auscultation: clear to auscultation bilaterally Cardio: Rate: regular rate Rhythm: regular rhythm Heart sounds: normal S1 and S2 GI: Inspection: Yes normal to inspection Palpation (GI): Soft to palpation and nontender Skin: General skin exam: no rashes or lesions noted Neuro: General: patient oriented x3 Extrem: General: Yes normal to inspection Objective Data Labs CBC & Chem 7: 09/14/21 06:48 09/14/21 19:52 Labs: Laboratory Results - last 24 hr 09/14/21 09/14/21 09/14/21 04:45 04:48 04:48 WBC 15.3 H RBC 5.45 Hgb 17.2 Hct 52.9 H MCV 97.1 MCH 31.6 MCHC 32.5 RDW 11.9 Plt Count 310 MPV 9.4 Immature Gran % (Auto) 2.1 H Neut % (Auto) 70.6 Lymph % (Auto) 13.5 L [place] % (Auto) 13.5 H Eos % (Auto) 0.0 Baso % (Auto) 0.3 Lymph # (Auto) 2.1 [place] # (Auto) 2.1 H Eos # (Auto) 0.0 Baso # (Auto) 0.0 Abs Immat Gran (auto) 0.32 H Absolute Neuts (auto) 10.8 H Absolute Nucleated RBC 0.000 Nucleated RBC % (auto) 0.0 Smear Tech's Comments VERIFIED VBG pH VBG pCO2 VBG pO2 VBG HCO3 VBG O2 Saturation VBG Base Excess Sodium 131 L Potassium 4.9 Chloride 92 L Carbon Dioxide < 5 L* D Anion Gap Not Reportable BUN 27 H Creatinine 2.47 H Estim Creat Clear Calc 48.4 Estimated GFR 31 POC Glucose > 600 H* Random Glucose 834 H* Lactic Acid Calcium 9.5 D Phosphorus Magnesium Total Bilirubin 0.4 AST 26 ALT 29 Alkaline Phosphatase 119 H Total Protein 8.5 H Albumin 4.7 Urine Color Urine Appearance Urine pH Ur Specific [place] Urine Protein Urine Glucose (UA) Urine Ketones Urine Blood Urine Nitrite Ur Leukocyte Esterase Urine RBC Urine WBC Ur Squamous Epith Cells Urine Bacteria Hyaline Casts Granular Casts Acetone, Qual Large H COVID-19 (LITA) COVID-19 Clin Com 09/14/21 09/14/21 09/14/21 04:48 04:53 04:54 WBC RBC Hgb Hct MCV MCH MCHC RDW Plt Count MPV Immature Gran % (Auto) Neut % (Auto) Lymph % (Auto) [place] % (Auto) Eos % (Auto) Baso % (Auto) Lymph # (Auto) [place] # (Auto) Eos # (Auto) Baso # (Auto) Abs Immat Gran (auto) Absolute Neuts (auto) Absolute Nucleated RBC Nucleated RBC % (auto) Smear Tech's Comments VBG pH 6.86 L* VBG pCO2 12 VBG pO2 95 VBG HCO3 2 L VBG O2 Saturation 94.0 VBG Base Excess -29.9 Sodium Potassium Chloride Carbon Dioxide Anion Gap BUN Creatinine Estim Creat Clear Calc Estimated GFR POC Glucose > 600 H* Random Glucose Lactic Acid 8.2 H* Calcium Phosphorus Magnesium Total Bilirubin AST ALT Alkaline Phosphatase Total Protein Albumin Urine Color Urine Appearance Urine pH Ur Specific [place] Urine Protein Urine Glucose (UA) Urine Ketones Urine Blood Urine Nitrite Ur Leukocyte Esterase Urine RBC Urine WBC Ur Squamous Epith Cells Urine Bacteria Hyaline Casts Granular Casts Acetone, Qual COVID-19 (LITA) COVID-19 Clin Com 09/14/21 09/14/21 09/14/21 04:58 05:38 06:45 WBC RBC Hgb Hct MCV MCH MCHC RDW Plt Count MPV Immature Gran % (Auto) Neut % (Auto) Lymph % (Auto) [place] % (Auto) Eos % (Auto) Baso % (Auto) Lymph # (Auto) [place] # (Auto) Eos # (Auto) Baso # (Auto) Abs Immat Gran (auto) Absolute Neuts (auto) Absolute Nucleated RBC Nucleated RBC % (auto) Smear Tech's Comments VBG pH VBG pCO2 VBG pO2 VBG HCO3 VBG O2 Saturation VBG Base Excess Sodium Potassium Chloride Carbon Dioxide Anion Gap BUN Creatinine Estim Creat Clear Calc Estimated GFR POC Glucose > 600 H* Random Glucose Lactic Acid Calcium Phosphorus Magnesium Total Bilirubin AST ALT Alkaline Phosphatase Total Protein Albumin Urine Color YELLOW Urine Appearance CLEAR Urine pH 5.5 Ur Specific [place] >= 1.030 H Urine Protein 1+ H Urine Glucose (UA) >=1000 H Urine Ketones >=80 Urine Blood 1+ H Urine Nitrite NEG Ur Leukocyte Esterase NEG Urine RBC 1-4 Urine WBC 1-4 Ur Squamous Epith Cells 1+ Urine Bacteria 1+ Hyaline Casts 1-4 Granular Casts 5-9 Acetone, Qual COVID-19 (LITA) Positive A COVID-19 Clin Com See Note 09/14/21 09/14/21 09/14/21 06:48 06:48 06:54 WBC RBC Hgb 16.0 Hct 48.6 MCV MCH MCHC RDW Plt Count MPV Immature Gran % (Auto) Neut % (Auto) Lymph % (Auto) [place] % (Auto) Eos % (Auto) Baso % (Auto) Lymph # (Auto) [place] # (Auto) Eos # (Auto) Baso # (Auto) Abs Immat Gran (auto) Absolute Neuts (auto) Absolute Nucleated RBC Nucleated RBC % (auto) Smear Tech's Comments VBG pH VBG pCO2 VBG pO2 VBG HCO3 VBG O2 Saturation VBG Base Excess Sodium 135 Potassium 5.1 Chloride 106 Carbon Dioxide < 5 L* Anion Gap TNP BUN 25 H Creatinine 1.92 H Estim Creat Clear Calc 62.3 Estimated GFR 42 POC Glucose 538 H* Random Glucose 661 H* Lactic Acid Calcium 8.2 L D Phosphorus 5.5 H Magnesium 2.6 Total Bilirubin AST ALT Alkaline Phosphatase Total Protein Albumin Urine Color Urine Appearance Urine pH Ur Specific [place] Urine Protein Urine Glucose (UA) Urine Ketones Urine Blood Urine Nitrite Ur Leukocyte Esterase Urine RBC Urine WBC Ur Squamous Epith Cells Urine Bacteria Hyaline Casts Granular Casts Acetone, Qual COVID-19 (LITA) COVID-19 Clin Com 09/14/21 09/14/21 09/14/21 07:58 08:55 10:30 WBC RBC Hgb Hct MCV MCH MCHC RDW Plt Count MPV Immature Gran % (Auto) Neut % (Auto) Lymph % (Auto) [place] % (Auto) Eos % (Auto) Baso % (Auto) Lymph # (Auto) [place] # (Auto) Eos # (Auto) Baso # (Auto) Abs Immat Gran (auto) Absolute Neuts (auto) Absolute Nucleated RBC Nucleated RBC % (auto) Smear Tech's Comments VBG pH VBG pCO2 VBG pO2 VBG HCO3 VBG O2 Saturation VBG Base Excess Sodium Potassium Chloride Carbon Dioxide Anion Gap BUN Creatinine Estim Creat Clear Calc Estimated GFR POC Glucose 447 H* 371 H* 238 H Random Glucose Lactic Acid Calcium Phosphorus Magnesium Total Bilirubin AST ALT Alkaline Phosphatase Total Protein Albumin Urine Color Urine Appearance Urine pH Ur Specific [place] Urine Protein Urine Glucose (UA) Urine Ketones Urine Blood Urine Nitrite Ur Leukocyte Esterase Urine RBC Urine WBC Ur Squamous Epith Cells Urine Bacteria Hyaline Casts Granular Casts Acetone, Qual COVID-19 (LITA) COVID-19 Clin Com 09/14/21 09/14/21 09/14/21 11:14 12:12 13:08 WBC RBC Hgb Hct MCV MCH MCHC RDW Plt Count MPV Immature Gran % (Auto) Neut % (Auto) Lymph % (Auto) [place] % (Auto) Eos % (Auto) Baso % (Auto) Lymph # (Auto) [place] # (Auto) Eos # (Auto) Baso # (Auto) Abs Immat Gran (auto) Absolute Neuts (auto) Absolute Nucleated RBC Nucleated RBC % (auto) Smear Tech's Comments VBG pH VBG pCO2 VBG pO2 VBG HCO3 VBG O2 Saturation VBG Base Excess Sodium 137 Potassium 4.5 Chloride 112 H Carbon Dioxide 10 L* D Anion Gap 20 BUN 15 Creatinine 1.33 Estim Creat Clear Calc 89.9 Estimated GFR > 60 POC Glucose 247 H 252 H Random Glucose 228 H D Lactic Acid Calcium 7.8 L Phosphorus 1.2 L Magnesium 2.0 Total Bilirubin AST ALT Alkaline Phosphatase Total Protein Albumin Urine Color Urine Appearance Urine pH Ur Specific [place] Urine Protein Urine Glucose (UA) Urine Ketones Urine Blood Urine Nitrite Ur Leukocyte Esterase Urine RBC Urine WBC Ur Squamous Epith Cells Urine Bacteria Hyaline Casts Granular Casts Acetone, Qual COVID-19 (LITA) COVID-19 Clin [place] 09/14/21 09/14/21 09/14/21 13:09 13:54 15:08 WBC RBC Hgb Hct MCV MCH MCHC RDW Plt Count MPV Immature Gran % (Auto) Neut % (Auto) Lymph % (Auto) [place] % (Auto) Eos % (Auto) Baso % (Auto) Lymph # (Auto) [place] # (Auto) Eos # (Auto) Baso # (Auto) Abs Immat Gran (auto) Absolute Neuts (auto) Absolute Nucleated RBC Nucleated RBC % (auto) Smear Tech's Comments VBG pH VBG pCO2 VBG pO2 VBG HCO3 VBG O2 Saturation VBG Base Excess Sodium Potassium Chloride Carbon Dioxide Anion Gap BUN Creatinine Estim Creat Clear Calc Estimated GFR POC Glucose 198 H 207 H 206 H Random Glucose Lactic Acid Calcium Phosphorus Magnesium Total Bilirubin AST ALT Alkaline Phosphatase Total Protein Albumin Urine Color Urine Appearance Urine pH Ur Specific [place] Urine Protein Urine Glucose (UA) Urine Ketones Urine Blood Urine Nitrite Ur Leukocyte Esterase Urine RBC Urine WBC Ur Squamous Epith Cells Urine Bacteria Hyaline Casts Granular Casts Acetone, Qual COVID-19 (LITA) COVID-19 [employer] 09/14/21 09/14/21 09/14/21 16:26 17:25 19:52 WBC RBC Hgb Hct MCV MCH MCHC RDW Plt Count MPV Immature Gran % (Auto) Neut % (Auto) Lymph % (Auto) [place] % (Auto) Eos % (Auto) Baso % (Auto) Lymph # (Auto) [place] # (Auto) Eos # (Auto) Baso # (Auto) Abs Immat Gran (auto) Absolute Neuts (auto) Absolute Nucleated RBC Nucleated RBC % (auto) Smear Tech's Comments VBG pH VBG pCO2 VBG pO2 VBG HCO3 VBG O2 Saturation VBG Base Excess Sodium 135 Potassium 3.9 Chloride 108 Carbon Dioxide 15 L Anion Gap 16 BUN 10 Creatinine 1.10 Estim Creat Clear Calc 108.7 Estimated GFR > 60 POC Glucose 189 H 210 H Random Glucose 225 H Lactic Acid Calcium 8.0 L Phosphorus 1.8 L Magnesium 2.1 Total Bilirubin AST ALT Alkaline Phosphatase Total Protein Albumin Urine Color Urine Appearance Urine pH Ur Specific [place] Urine Protein Urine Glucose (UA) Urine Ketones Urine Blood Urine Nitrite Ur Leukocyte Esterase Urine RBC Urine WBC Ur Squamous Epith Cells Urine Bacteria Hyaline Casts Granular Casts Acetone, Qual COVID-19 (LITA) COVID-19 Clin Com 09/14/21 19:58 WBC RBC Hgb Hct MCV MCH MCHC RDW Plt Count MPV Immature Gran % (Auto) Neut % (Auto) Lymph % (Auto) [place] % (Auto) Eos % (Auto) Baso % (Auto) Lymph # (Auto) [place] # (Auto) Eos # (Auto) Baso # (Auto) Abs Immat Gran (auto) Absolute Neuts (auto) Absolute Nucleated RBC Nucleated RBC % (auto) Smear Tech's Comments VBG pH VBG pCO2 VBG pO2 VBG HCO3 VBG O2 Saturation VBG Base Excess Sodium Potassium Chloride Carbon Dioxide Anion Gap BUN Creatinine Estim Creat Clear Calc Estimated GFR POC Glucose 239 H Random Glucose Lactic Acid Calcium Phosphorus Magnesium Total Bilirubin AST ALT Alkaline Phosphatase Total Protein Albumin Urine Color Urine Appearance Urine pH Ur Specific [place] Urine Protein Urine Glucose (UA) Urine Ketones Urine Blood Urine Nitrite Ur Leukocyte Esterase Urine RBC Urine WBC Ur Squamous Epith Cells Urine Bacteria Hyaline Casts Granular Casts Acetone, Qual COVID-19 (LITA) COVID-19 Clin Com Progress Note: A&P Assessment and plan Assessment and Plan: patient to be downgraded to [facility] [place] [place], discussed with Dr. Horton and Dr. Herron, both aware and agree with plan. Quality Stroke Does the patient have a stroke diagnosis?: No VTE Prior VTE?: No VTE Risk Level:: Medical - low VTE Device Contraindication: N/A - Device Ordered VTE Drug Contraindication: N/A - Med Ordered
[2021-09-15] VITALS (16 sets, daily range): BP systolic 123–156; BP diastolic 63–95; PULSE 98–124; RESP 15–28; TEMP 37.3–39.1; O2SAT 96–100; BMI 26.4
[2021-09-15] MEDS: Acetaminophen 325 MG TABLET 650 MG PO ×3 (01:04→18:17)
[2021-09-15 05:34] LABS: Hematocrit 42.1 % (42.0-52.0); Hemoglobin 14.8 g/dl (14.0-18.0); Mean Corpuscular HGB Conc 35.2 g/dl (31.0-36.0); Mean Corpuscular Hemoglobin 31.1 pg (27.0-33.0); Mean Corpuscular Volume 88.4 fL (80.0-98.0); Mean Platelet Volume 8.9 fL (9.4-12.4); Platelet Count 194 X10*3/uL (160-400); Red Blood Count 4.76 X10*6/uL (4.60-5.80); Red Cell Distribution Width 11.6 % (11.0-16.0); White Blood Count 6.3 X10*3/uL (4.8-10.8)
[2021-09-15 05:42] LABS: Anion Gap 19 (12-20); Blood Urea Nitrogen 8 mg/dL (9-16); Calcium 8.5 mg/dL (8.4-10.2); Carbon Dioxide 16 mmol/L (22-29); Chloride 105 mmol/L (96-108); Estimated Glomerular Filt Rate > 60; Glucose Random 271 mg/dL (60-115); Magnesium 2.1 mg/dL (1.6-2.6); Phosphorus 1.5 mg/dL (2.7-4.5); Potassium 3.7 mmol/L (3.3-5.1); Sodium 136 mmol/L (135-145)
[2021-09-15] MEDS: Insulin Lispro 100 UNIT/ML 3 ML VIAL 10 UNIT SUBCUT (07:57)
[2021-09-15] MEDS: Zinc Sulfate 220 MG CAPSULE PO ×2 (07:58→20:41)
[2021-09-15] MEDS: lisinopriL 20 MG TABLET PO (07:58)
[2021-09-15] MEDS: Hydroxychloroquine Sulfate 200 MG TABLET PO ×2 (07:58→20:41)
[2021-09-15] MEDS: Famotidine 20 MG TABLET 40 MG PO ×2 (07:58→20:41)
[2021-09-15] MEDS: Cholecalciferol (Vitamin D3) 25 MCG TABLET 50 MCG PO (07:58)
[2021-09-15] MEDS: Ascorbic Acid 500 MG TABLET 1000 MG PO ×4 (07:58→20:41)
[2021-09-15] MEDS: Aspirin 325 MG TABLET PO (07:59)
[2021-09-15] MEDS: amLODIPine Besylate 5 MG TABLET PO (07:59)
[2021-09-15] MEDS: Sodium,Potassium Phosphates POWD.PACK 1 PACKET PO ×2 (07:59→20:41)
[2021-09-15 08:07] LABS: Lactate Dehydrogenase 305 U/L (118-273)
[2021-09-15 10:10] LABS: Glucose, Whole Blood 258 mg/dL (60-115)
[2021-09-15 11:04] LABS: D Dimer High Sensitivity 773 NG/ML
--- NOTE | 2021-09-15 11:39 | HO.PM.IMPN ---
Subjective Subjective Date of Service: 09/15/21 Interval History: complaining of headache, fever, less shortness of breath, no further bout of nausea vomiting no abdominal pain no diarrhea, oxygenation stable 98 99% on room air. Review of Systems Review of Systems: Yes all other systems are reviewed and are negative Physical Exam Vital Signs: Vital Signs: Last Vital Signs Temp 102.4 F H 09/15/21 07:00 Pulse 107 H 09/15/21 07:59 Resp 23 H 09/15/21 07:00 BP 140/93 H 09/15/21 07:59 Pulse Ox 99 09/15/21 07:00 Oxygen Flow Rate 2 09/14/21 04:53 BMI result Body Mass Index 26.4 General awake alert x3, no acute distress, talking in full sentences. HEENT pupils equal round reactive to light and accommodation Neck supple, no JVD ,no subcutaneous crepitus CVS regular rate rhythm, Respiratory lungs clear to auscultation, no respiratory distress, Gastrointestinal abdomen soft, nontender, bowel sounds audible, Extremities no edema. Neuro nonfocal Skin no rash Psych appropriate affect Objective Data Active Medications Acetaminophen (Acetaminophen 325 Mg Tablet) 650 mg PO Q6H PRN PRN Reason: Fever Last Admin: 09/15/21 08:01 Dose: 650 mg Documented by: ALICIA Amlodipine Besylate (Amlodipine Besylate 5 Mg Tablet) 5 mg PO DAILY [facility]; Protocol Last Admin: 09/15/21 07:59 Dose: 5 mg Documented by: ALICIA Ascorbic Acid (Ascorbic Acid 500 Mg Tablet) 1,000 mg PO QID [facility] Last Admin: 09/15/21 07:58 Dose: 1,000 mg Documented by: ALICIA Aspirin (Aspirin 325 Mg Tablet) 325 mg PO DAILY [facility] Last Admin: 09/15/21 07:59 Dose: 325 mg Documented by: ALICIA Famotidine (Famotidine 20 Mg Tablet) 40 mg PO BID [facility] Last Admin: 09/15/21 07:58 Dose: 40 mg Documented by: ALICIA Hydroxychloroquine Sulfate (Hydroxychloroquine Sulfate 200 Mg Tablet) 200 mg PO BID [facility] Stop: 09/23/21 21:01 Last Admin: 09/15/21 07:58 Dose: 200 mg Documented by: ALICIA Doxycycline Hyclate 100 mg/ (Sodium Chloride) 250 mls @ 166.67 mls/hr IV Q12H [facility] Insulin Glargine (Insulin Glargine,Hum.Rec.Anlog 100 Unit/Ml 10 Ml Vial) 30 unit SUBCUT BEDTIME [facility] Last Admin: 09/14/21 21:21 Dose: 30 unit Documented by: DEBORA Insulin Human Lispro (Insulin Lispro 100 Unit/Ml 3 Ml Vial) 0 unit SUBCUT QIDACHS [facility]; Protocol Last Admin: 09/15/21 07:54 Dose: Not Given Documented by: ALICIA Non-Admin Reason: Physician Held Med Ivermectin (Ivermectin 3 Mg Tablet) 30 mg PO Q48H [facility] Stop: 09/16/21 11:01 Last Admin: 09/14/21 10:59 Dose: 30 mg Documented by: CARDBROOKLYNN Lisinopril (Lisinopril 20 Mg Tablet) 20 mg PO DAILY [facility]; Protocol Last Admin: 09/15/21 07:58 Dose: 20 mg Documented by: ALICIA Melatonin (Melatonin 3 Mg Tablet) 9 mg PO BEDTIME [facility] Last Admin: 09/14/21 19:51 Dose: 9 mg Documented by: DEBORA Pharmacy Consult (Consult Rx Perform Med Rec) 1 each MISCELLANE ONCE PRN PRN Reason: Consult order Potassium Phos/Sodium Phos (Sodium,Potassium Phosphates Powd.Pack) 1 packet PO BID [facility] Last Admin: 09/15/21 07:59 Dose: 1 packet Documented by: ALICIA Vitamin D (Cholecalciferol (Vitamin D3) 25 Mcg Tablet) 50 mcg PO DAILY [facility] Last Admin: 09/15/21 07:58 Dose: 50 mcg Documented by: ALICIA Zinc Sulfate (Zinc Sulfate 220 Mg Capsule) 220 mg PO BID [facility] Last Admin: 09/15/21 07:58 Dose: 220 mg Documented by: ALICIA Labs CBC & Chem 7: 09/15/21 05:16 09/15/21 05:16 Labs: Laboratory Results - last 24 hr 09/14/21 09/14/21 09/14/21 12:12 13:08 13:09 MCV MCH MCHC RDW Plt Count MPV Absolute Nucleated RBC Nucleated RBC % (auto) D-Dimer High Sensitivty Anion Gap 20 Estim Creat Clear Calc 89.9 Estimated GFR > 60 POC Glucose 252 H 198 H Random Glucose 228 H D Calcium 7.8 L Phosphorus 1.2 L Magnesium 2.0 Lactate Dehydrogenase C-Reactive Protein Procalcitonin 09/14/21 09/14/21 09/14/21 13:54 15:08 16:26 MCV MCH MCHC RDW Plt Count MPV Absolute Nucleated RBC Nucleated RBC % (auto) D-Dimer High Sensitivty Anion Gap Estim Creat Clear Calc Estimated GFR POC Glucose 207 H 206 H 189 H Random Glucose Calcium Phosphorus Magnesium Lactate Dehydrogenase C-Reactive Protein Procalcitonin 09/14/21 09/14/21 09/14/21 17:25 19:52 19:58 MCV MCH MCHC RDW Plt Count MPV Absolute Nucleated RBC Nucleated RBC % (auto) D-Dimer High Sensitivty Anion Gap 16 Estim Creat Clear Calc 108.7 Estimated GFR > 60 POC Glucose 210 H 239 H Random Glucose 225 H Calcium 8.0 L Phosphorus 1.8 L Magnesium 2.1 Lactate Dehydrogenase C-Reactive Protein Procalcitonin 09/15/21 09/15/21 09/15/21 05:16 05:16 05:16 MCV 88.4 D MCH 31.1 MCHC 35.2 RDW 11.6 Plt Count 194 D MPV 8.9 L Absolute Nucleated RBC 0.000 Nucleated RBC % (auto) 0.0 D-Dimer High Sensitivty Anion Gap 19 Estim Creat Clear Calc 104.0 Estimated GFR > 60 POC Glucose Random Glucose 271 H Calcium 8.5 D Phosphorus 1.5 L Magnesium 2.1 Lactate Dehydrogenase 305 H C-Reactive Protein 6.80 H Procalcitonin 0.70 09/15/21 09/15/21 07:45 10:41 MCV MCH MCHC RDW Plt Count MPV Absolute Nucleated RBC Nucleated RBC % (auto) D-Dimer High Sensitivty 773 Anion Gap Estim Creat Clear Calc Estimated GFR POC Glucose 258 H Random Glucose Calcium Phosphorus Magnesium Lactate Dehydrogenase C-Reactive Protein Procalcitonin Microbiology Microbiology Results: Microbiology 09/14/21 05:32 Blood Culture - Preliminary Blood - Venous No growth after 24 hours. 09/14/21 05:32 Blood Culture - Preliminary Blood - Venous No growth after 24 hours. Assessment and Plan (1) COVID-19: Status: Acute (2) DKA (diabetic ketoacidosis): Status: Acute (3) Vitamin D deficiency: Status: Acute (4) HLD (hyperlipidemia): Status: Acute (5) HTN (hypertension): Status: Acute (6) Pneumomediastinum: Status: Acute (7) Subcutaneous emphysema: Status: Acute Assessment and Plan: 31-year-old male with a past medical history of type 1 diabetes, hypertension, hyperlipidemia, vitamin-D deficiency and a recent diagnosis of COVID-19 presented with symptoms of shortness of breath, headache, abdominal pain, nausea and vomiting of x2 days, tested for COVID-19 day prior to presentation. DKA treated in ICU with IV insulin drip gap closed bicarb remains low patient has been placed on insulin sliding scale and Lantus follow blood sugars q.i.d. a.c./ follow BMP. Nausea vomiting abdominal pain likely due to DKA resolved. COVID pneumonia patient noted to have stable oxygenation but have high-grade fevers elevated procalcitonin level therefore will place on IV doxycycline patient has been started on chloroquine and ivermectin by spice cleaner Follow clinical course closely and monitor for hypoxia, WBC normalized blood cultures x2 negative D-dimer 773, elevated LDH 305 CRP 6.80, procalcitonin 0.07 Continue seeing sulfate, vitamin-C and Pepcid Pneumomediastinum/subcutaneous emphysema due to COVID infection follow clinical course and repeat chest x-ray History of hypertension continue home medications lisinopril 20 mg and amlodipine 5 mg daily follow BP closely Hypophosphatemia with history of vitamin-D deficiency will replace vitamin-D and phosphorous follow levels closely. DVT prophylaxis will place on Lovenox due to elevated D-dimer Quality Stroke Does the patient have a stroke diagnosis?: No VTE Prior VTE?: No VTE Risk Level:: Medical - low VTE Device Contraindication: N/A - Device Ordered VTE Drug Contraindication: N/A - Med Ordered
[2021-09-15 12:07] LABS: Glucose, Whole Blood 213 mg/dL (60-115)
[2021-09-15] MEDS: Insulin Lispro 100 UNIT/ML 3 ML VIAL SUBCUT ×3 (12:11→20:42)
[2021-09-15] MEDS: Doxycycline Hyclate 100 MG in 0.9 % Sodium Chloride 250 ML 166.67 MG IV ×2 (12:12→23:49)
--- NOTE | 2021-09-15 14:22 | PC.NURSE ---
burdick removed at 1420, DTV 2220, pt aware
[2021-09-15 16:52] LABS: Glucose, Whole Blood 195 mg/dL (60-115)
[2021-09-15 17:28] LABS: Anion Gap 16 (12-20); Blood Urea Nitrogen 6 mg/dL (9-16); Calcium 8.6 mg/dL (8.4-10.2); Carbon Dioxide 19 mmol/L (22-29); Chloride 105 mmol/L (96-108); Creatinine Clr Calc Pharmacy 132.9; Estimated Glomerular Filt Rate > 60; Glucose Random 225 mg/dL (60-115); Potassium 3.3 mmol/L (3.3-5.1); Sodium 137 mmol/L (135-145)
[2021-09-15 20:14] LABS: Glucose, Whole Blood 257 mg/dL (60-115)
[2021-09-15] MEDS: Melatonin 3 MG TABLET 9 MG PO (20:41)
[2021-09-15] MEDS: Insulin Glargine,Hum.rec.anlog 100 UNIT/ML 10 ML VIAL 30 UNIT SUBCUT (20:42)
[2021-09-16] MEDS: Acetaminophen 325 MG TABLET 650 MG PO ×3 (01:29→14:48)
[2021-09-16 02:51] VITALS: BP 141/80; PULSE 80; RESP 20; TEMP 37.7; O2SAT 96
[2021-09-16 07:43] VITALS: BP 134/87; PULSE 102; RESP 20; TEMP 38.9; O2SAT 94
[2021-09-16 07:52] LABS: Glucose, Whole Blood 196 mg/dL (60-115)
[2021-09-16] MEDS: Famotidine 20 MG TABLET 40 MG PO ×2 (08:35→20:22)
[2021-09-16] MEDS: Ascorbic Acid 500 MG TABLET 1000 MG PO ×4 (08:35→20:39)
[2021-09-16] MEDS: amLODIPine Besylate 5 MG TABLET PO (08:35)
[2021-09-16] MEDS: Zinc Sulfate 220 MG CAPSULE PO ×3 (08:35→20:22)
[2021-09-16] MEDS: Aspirin 325 MG TABLET PO (08:36)
[2021-09-16] MEDS: Cholecalciferol (Vitamin D3) 25 MCG TABLET 50 MCG PO (08:36)
[2021-09-16] MEDS: Sodium,Potassium Phosphates POWD.PACK 1 PACKET PO ×2 (08:36→20:22)
[2021-09-16] MEDS: Hydroxychloroquine Sulfate 200 MG TABLET PO (08:36)
[2021-09-16] MEDS: lisinopriL 20 MG TABLET PO (08:36)
[2021-09-16] MEDS: Insulin Lispro 100 UNIT/ML 3 ML VIAL SUBCUT ×4 (08:37→20:21)
[2021-09-16 09:02] LABS: Anion Gap 13 (12-20); Blood Urea Nitrogen 8 mg/dL (9-16); Calcium 8.3 mg/dL (8.4-10.2); Carbon Dioxide 24 mmol/L (22-29); Chloride 102 mmol/L (96-108); Creatinine Clr Calc Pharmacy 155.3; Estimated Glomerular Filt Rate > 60; Glucose Random 224 mg/dL (60-115); Magnesium 2.1 mg/dL (1.6-2.6); Phosphorus 1.1 mg/dL (2.7-4.5); Potassium 3.3 mmol/L (3.3-5.1); Sodium 136 mmol/L (135-145)
[2021-09-16 10:17] VITALS: TEMP 38
--- NOTE | 2021-09-16 11:32 | PM.CNPUL ---
History of Present Illness History of Present Illness Consult date: 09/16/21 Reason for consult: dyspnea Chief complaint: DKA Narrative: This is an in patient pulmonary consultation. The Patient is a 31-year-old male with a past medical history of type 1 diabetes, hypertension, hyperlipidemia, vitamin-D deficiency and a recent diagnosis of COVID-19 who is complaining of shortness of breath, headache, abdominal pain, nausea and vomiting.? Patient states he has been vomiting every 2 hours for the last 2 days.? He started feeling? these symptoms 2 days ago and was tested yesterday for COVID-19, he tested positive.? He states he takes 25 units of Lantus each night along with NovoLog according to his sliding scale.? He states the last time he took his insulin was a last evening, 25U Lantus. He has been a T1D for 1.5years. He also states he takes blood pressure medication and thinks it could be lisinopril but he is unsure of the dose. ? He denies any chest pain,? fevers, chills or body aches. He was admitted to the ICU, CXR with +pneumediatinum. He is still having fevers. Procalcitonin is negative. He is on Doxy. I did speak to the team regarding starting Remdesivir in view of the serious complication of pneumomediastinum. Also noted that his ddimer was significntly elevated. Review of Systems Constitutional: Constitutional: Reports fever(s), Reports headache(s), Reports malaise and Denies night sweats ENT: Denies change in voice, Reports headache(s), Denies lip swelling, Denies mouth pain, Reports nasal congestion, Reports nasal discharge and Denies tongue swelling Cardiovascular: Cardiovascular: Denies chest pain and Reports dyspnea Respiratory: Respiratory: Reports cough and Reports dyspnea Gastrointestinal: Gastrointestinal: Denies abdominal pain Musculoskeletal: Musculoskeletal: Denies no additional musculoskeletal complaints Neurologic: Denies Neuro-related abnormal movements and Reports headache(s) Psychiatric: Psychiatric: Denies no additional psychiatric complaints Hematologic/Lymphatic: Hematologic/Lymphatic: Denies easy bleeding and Denies lymphadenopathy Allergic/Immunologic: Allergic/Immunologic: Denies lip swelling and Denies tongue swelling PMFSH Past Medical History Medical History HLD (hyperlipidemia) HTN (hypertension) Overweight (BMI 25.0-29.9) T1DM (type 1 diabetes mellitus) Vitamin D deficiency Family History Family History Father Diabetes mellitus Hypertension Mother Hypertension Surgical History Surgical History No significant past surgical history Social History Social History Household Members: Family Housing: House Do you presently have visiting nurse or other home services: No Alcohol intake: current Alcohol intake frequency: a few times a week Patient Tobacco Use Status: Never used Tobacco Substance Use Type: Marijuana service: No Current occupational status: employed Meds Allergies Allergy/AdvReac Type Severity Reaction Status Date / Time No Known Allergies Allergy Verified 09/14/21 05:01 [No Known Allergies*] Active Medications: Current Medications Acetaminophen (Acetaminophen 325 Mg Tablet) 650 mg PO Q6H PRN PRN Reason: Fever Last Admin: 09/16/21 08:34 Dose: 650 mg Documented by: Amlodipine Besylate (Amlodipine Besylate 5 Mg Tablet) 5 mg PO DAILY [facility]; Protocol Last Admin: 09/16/21 08:35 Dose: 5 mg Documented by: Ascorbic Acid (Ascorbic Acid 500 Mg Tablet) 1,000 mg PO QID [facility] Last Admin: 09/16/21 08:35 Dose: 1,000 mg Documented by: Aspirin (Aspirin 325 Mg Tablet) 325 mg PO DAILY [facility] Last Admin: 09/16/21 08:36 Dose: 325 mg Documented by: Famotidine (Famotidine 20 Mg Tablet) 40 mg PO BID [facility] Last Admin: 09/16/21 08:35 Dose: 40 mg Documented by: Hydroxychloroquine Sulfate (Hydroxychloroquine Sulfate 200 Mg Tablet) 200 mg PO BID [facility] Stop: 09/23/21 21:01 Last Admin: 09/16/21 08:36 Dose: 200 mg Documented by: Doxycycline Hyclate 100 mg/ (Sodium Chloride) 250 mls @ 166.67 mls/hr IV Q12H [facility] Last Infusion: 09/16/21 01:34 Dose: Infused Documented by: Insulin Glargine (Insulin Glargine,Hum.Rec.Anlog 100 Unit/Ml 10 Ml Vial) 30 unit SUBCUT BEDTIME [facility] Last Admin: 09/15/21 20:42 Dose: 30 unit Documented by: Insulin Human Lispro (Insulin Lispro 100 Unit/Ml 3 Ml Vial) 0 unit SUBCUT QIDACHS [facility]; Protocol Last Admin: 09/16/21 08:37 Dose: 4 unit Documented by: Lisinopril (Lisinopril 20 Mg Tablet) 20 mg PO DAILY [facility]; Protocol Last Admin: 09/16/21 08:36 Dose: 20 mg Documented by: Melatonin (Melatonin 3 Mg Tablet) 9 mg PO BEDTIME [facility] Last Admin: 09/15/21 20:41 Dose: 9 mg Documented by: Pharmacy Consult (Consult Rx Perform Med Rec) 1 each MISCELLANE ONCE PRN PRN Reason: Consult order Potassium Phos/Sodium Phos (Sodium,Potassium Phosphates Powd.Pack) 1 packet PO BID [facility] Last Admin: 09/16/21 08:36 Dose: 1 packet Documented by: Vitamin D (Cholecalciferol (Vitamin D3) 25 Mcg Tablet) 50 mcg PO DAILY [facility] Last Admin: 09/16/21 08:36 Dose: 50 mcg Documented by: Zinc Sulfate (Zinc Sulfate 220 Mg Capsule) 220 mg PO BID [facility] Last Admin: 09/16/21 08:35 Dose: 220 mg Documented by: Home Medications Medication Instructions Recorded Confirmed Last Taken Type insulin aspart U-100 100 unit/mL 10 unit SUBCUT TID ml 02/11/21 09/14/21 Unknown History (3 mL) subcutaneous pen (Novolog Flexpen U-100 Insulin aspart) Physical Exam Vital Signs: Vital Signs: Last Vital Signs Temp 100.4 F 09/16/21 10:17 Pulse 102 H 09/16/21 07:43 Resp 20 09/16/21 07:43 BP 134/87 09/16/21 07:43 Pulse Ox 94 09/16/21 07:43 Oxygen Flow Rate 2 09/14/21 04:53 BMI result Body Mass Index 26.4 Const: General: alert Neck: Neck: Yes normal visual inspection, Yes full ROM and Yes no lymphadenopathy Chest: Chest palpation & inspection: normal inspection of the chest Resp: Auscultation: diminished lung sounds Cardio: Rate: regular rate Rhythm: regular rhythm Heart sounds: S1 normal heart sound present and S2 normal heart sound present GI: Palpation (GI): Soft to palpation and nontender Auscultation: normal bowel sounds Skin: General skin exam: rashes and/or lesions noted Results Laboratory Findings CBC and BMP: 09/15/21 05:16 09/16/21 08:26 Abnormal lab findings: Abnormal Labs 09/14/21 09/14/21 09/14/21 04:45 04:48 04:48 WBC 15.3 H Hct 52.9 H MPV Immature Gran % (Auto) 2.1 H Lymph % (Auto) 13.5 L Miner % (Auto) 13.5 H Miner # (Auto) 2.1 H Abs Immat Gran (auto) 0.32 H Absolute Neuts (auto) 10.8 H VBG pH VBG HCO3 Sodium 131 L Chloride 92 L Carbon Dioxide < 5 L* D BUN 27 H Creatinine 2.47 H POC Glucose > 600 H* Random Glucose 834 H* Lactic Acid Calcium Phosphorus Alkaline Phosphatase 119 H Lactate Dehydrogenase C-Reactive Protein Total Protein 8.5 H Ur Specific [place] Urine Protein Urine Glucose (UA) Urine Blood Acetone, Qual Large H COVID-19 (LITA) 09/14/21 09/14/21 09/14/21 04:48 04:53 04:54 WBC Hct MPV Immature Gran % (Auto) Lymph % (Auto) Miner % (Auto) Miner # (Auto) Abs Immat Gran (auto) Absolute Neuts (auto) VBG pH 6.86 L* VBG HCO3 2 L Sodium Chloride Carbon Dioxide BUN Creatinine POC Glucose > 600 H* Random Glucose Lactic Acid 8.2 H* Calcium Phosphorus Alkaline Phosphatase Lactate Dehydrogenase C-Reactive Protein Total Protein Ur Specific [place] Urine Protein Urine Glucose (UA) Urine Blood Acetone, Qual COVID-19 (LITA) 09/14/21 09/14/21 09/14/21 04:58 05:38 06:45 WBC Hct MPV Immature Gran % (Auto) Lymph % (Auto) Miner % (Auto) Miner # (Auto) Abs Immat Gran (auto) Absolute Neuts (auto) VBG pH VBG HCO3 Sodium Chloride Carbon Dioxide BUN Creatinine POC Glucose > 600 H* Random Glucose Lactic Acid Calcium Phosphorus Alkaline Phosphatase Lactate Dehydrogenase C-Reactive Protein Total Protein Ur Specific [place] >= 1.030 H Urine Protein 1+ H Urine Glucose (UA) >=1000 H Urine Blood 1+ H Acetone, Qual COVID-19 (LITA) Positive A 09/14/21 09/14/21 09/14/21 06:48 06:54 07:58 WBC Hct MPV Immature Gran % (Auto) Lymph % (Auto) Miner % (Auto) Miner # (Auto) Abs Immat Gran (auto) Absolute Neuts (auto) VBG pH VBG HCO3 Sodium Chloride Carbon Dioxide < 5 L* BUN 25 H Creatinine 1.92 H POC Glucose 538 H* 447 H* Random Glucose 661 H* Lactic Acid Calcium 8.2 L D Phosphorus 5.5 H Alkaline Phosphatase Lactate Dehydrogenase C-Reactive Protein Total Protein Ur Specific [place] Urine Protein Urine Glucose (UA) Urine Blood Acetone, Qual COVID-19 (LITA) 09/14/21 09/14/21 09/14/21 08:55 10:30 11:14 WBC Hct MPV Immature Gran % (Auto) Lymph % (Auto) Miner % (Auto) Miner # (Auto) Abs Immat Gran (auto) Absolute Neuts (auto) VBG pH VBG HCO3 Sodium Chloride Carbon Dioxide BUN Creatinine POC Glucose 371 H* 238 H 247 H Random Glucose Lactic Acid Calcium Phosphorus Alkaline Phosphatase Lactate Dehydrogenase C-Reactive Protein Total Protein Ur Specific [place] Urine Protein Urine Glucose (UA) Urine Blood Acetone, Qual COVID-19 (LITA) 09/14/21 09/14/21 09/14/21 12:12 13:08 13:09 WBC Hct MPV Immature Gran % (Auto) Lymph % (Auto) Miner % (Auto) Miner # (Auto) Abs Immat Gran (auto) Absolute Neuts (auto) VBG pH VBG HCO3 Sodium Chloride 112 H Carbon Dioxide 10 L* D BUN Creatinine POC Glucose 252 H 198 H Random Glucose 228 H D Lactic Acid Calcium 7.8 L Phosphorus 1.2 L Alkaline Phosphatase Lactate Dehydrogenase C-Reactive Protein Total Protein Ur Specific [place] Urine Protein Urine Glucose (UA) Urine Blood Acetone, Qual COVID-19 (LITA) 09/14/21 09/14/21 09/14/21 13:54 15:08 16:26 WBC Hct MPV Immature Gran % (Auto) Lymph % (Auto) Miner % (Auto) Miner # (Auto) Abs Immat Gran (auto) Absolute Neuts (auto) VBG pH VBG HCO3 Sodium Chloride Carbon Dioxide BUN Creatinine POC Glucose 207 H 206 H 189 H Random Glucose Lactic Acid Calcium Phosphorus Alkaline Phosphatase Lactate Dehydrogenase C-Reactive Protein Total Protein Ur Specific [place] Urine Protein Urine Glucose (UA) Urine Blood Acetone, Qual COVID-19 (LITA) 09/14/21 09/14/21 09/14/21 17:25 19:52 19:58 WBC Hct MPV Immature Gran % (Auto) Lymph % (Auto) Miner % (Auto) Miner # (Auto) Abs Immat Gran (auto) Absolute Neuts (auto) VBG pH VBG HCO3 Sodium Chloride Carbon Dioxide 15 L BUN Creatinine POC Glucose 210 H 239 H Random Glucose 225 H Lactic Acid Calcium 8.0 L Phosphorus 1.8 L Alkaline Phosphatase Lactate Dehydrogenase C-Reactive Protein Total Protein Ur Specific [place] Urine Protein Urine Glucose (UA) Urine Blood Acetone, Qual COVID-19 (LITA) 09/15/21 09/15/21 09/15/21 05:16 05:16 07:45 WBC Hct MPV 8.9 L Immature Gran % (Auto) Lymph % (Auto) Miner % (Auto) Miner # (Auto) Abs Immat Gran (auto) Absolute Neuts (auto) VBG pH VBG HCO3 Sodium Chloride Carbon Dioxide 16 L BUN 8 L Creatinine POC Glucose 258 H Random Glucose 271 H Lactic Acid Calcium Phosphorus 1.5 L Alkaline Phosphatase Lactate Dehydrogenase 305 H C-Reactive Protein 6.80 H Total Protein Ur Specific [place] Urine Protein Urine Glucose (UA) Urine Blood Acetone, Qual COVID-19 (LITA) 09/15/21 09/15/21 09/15/21 12:03 16:47 17:06 WBC Hct MPV Immature Gran % (Auto) Lymph % (Auto) Miner % (Auto) Miner # (Auto) Abs Immat Gran (auto) Absolute Neuts (auto) VBG pH VBG HCO3 Sodium Chloride Carbon Dioxide 19 L BUN 6 L Creatinine POC Glucose 213 H 195 H Random Glucose 225 H Lactic Acid Calcium Phosphorus Alkaline Phosphatase Lactate Dehydrogenase C-Reactive Protein Total Protein Ur Specific [place] Urine Protein Urine Glucose (UA) Urine Blood Acetone, Qual COVID-19 (LITA) 09/15/21 09/16/21 09/16/21 20:03 07:47 08:26 WBC Hct MPV Immature Gran % (Auto) Lymph % (Auto) Miner % (Auto) Miner # (Auto) Abs Immat Gran (auto) Absolute Neuts (auto) VBG pH VBG HCO3 Sodium Chloride Carbon Dioxide BUN 8 L Creatinine POC Glucose 257 H 196 H Random Glucose 224 H Lactic Acid Calcium 8.3 L Phosphorus 1.1 L Alkaline Phosphatase Lactate Dehydrogenase C-Reactive Protein Total Protein Ur Specific [place] Urine Protein Urine Glucose (UA) Urine Blood Acetone, Qual COVID-19 (LITA) Microbiology: Microbiology 09/14/21 05:32 Blood - Venous Blood Culture - Preliminary No growth after 48 hours. 09/14/21 05:32 Blood - Venous Blood Culture - Preliminary No growth after 48 hours. Assessment and Plan (1) Pneumomediastinum: Status: Acute (2) COVID-19: Status: Acute CTA to r/o PE and assess for PTX and pneumomediastinum If PTX using oxygen may help reabsorb air continue doxy Add Remdesivir ( spoke to team) Monitor sugars Serial CXRs Procedures Date of Service Date of Service: 09/16/21
[2021-09-16 11:44] VITALS: BP 132/81; PULSE 86; RESP 18; TEMP 37.4; O2SAT 96
[2021-09-16 11:52] LABS: Glucose, Whole Blood 189 mg/dL (60-115)
[2021-09-16] MEDS: iohexoL 350 MG/ML 100 ML INFUS..BTL 65 ML IV (13:06)
[2021-09-16] MEDS: Doxycycline Hyclate 100 MG in 0.9 % Sodium Chloride 250 ML 166.67 MG IV (13:12)
--- NOTE | 2021-09-16 14:12 | HO.PM.IMPN ---
Subjective Subjective Date of Service: 09/16/21 Interval History: Feeling hot noted to have fever 102 this a.m. denies chest pain, no shortness of breath, no lightheadedness, no dizziness oxygenation remains stable on room air. Review of Systems Review of Systems: Yes all other systems are reviewed and are negative Physical Exam Vital Signs: Vital Signs: Last Vital Signs Temp 99.4 F 09/16/21 11:44 Pulse 86 09/16/21 11:44 Resp 18 09/16/21 11:44 BP 132/81 09/16/21 11:44 Pulse Ox 96 09/16/21 11:44 Oxygen Flow Rate 2 09/14/21 04:53 BMI result Body Mass Index 26.4 General awake aler t x3, no acute dis tress, talking in full sentences. Ne ck supple, no JVD ,no subcutaneous c repitus CVS? regul ar rate rhythm, Re spiratory lungs cl ear to auscultatio n, no respiratory distress, Gastroin testinal abdomen s oft, nontender, herrera wel sounds audible , Extremities no? edema. Neuro nonfo uma Skin no rash P sych appropriate a ffect Objective Data Active Medications Acetaminophen (Acetaminophen 325 Mg Tablet) 650 mg PO Q6H PRN PRN Reason: Fever Last Admin: 09/16/21 08:34 Dose: 650 mg Documented by: SONY Amlodipine Besylate (Amlodipine Besylate 5 Mg Tablet) 5 mg PO DAILY [facility]; Protocol Last Admin: 09/16/21 08:35 Dose: 5 mg Documented by: SONY Ascorbic Acid (Ascorbic Acid 500 Mg Tablet) 1,000 mg PO QID [facility] Last Admin: 09/16/21 13:12 Dose: 1,000 mg Documented by: SONY Aspirin (Aspirin 325 Mg Tablet) 325 mg PO DAILY [facility] Last Admin: 09/16/21 08:36 Dose: 325 mg Documented by: SONY Famotidine (Famotidine 20 Mg Tablet) 40 mg PO BID [facility] Last Admin: 09/16/21 08:35 Dose: 40 mg Documented by: SONY Doxycycline Hyclate 100 mg/ (Sodium Chloride) 250 mls @ 166.67 mls/hr IV Q12H [facility] Last Admin: 09/16/21 13:12 Dose: 166.67 mls/hr Documented by: SONY Remdesivir 200 mg/ Sodium (Chloride) 210 mls @ 105 mls/hr IV ONCE ONE Stop: 09/16/21 15:59 Remdesivir 100 mg/ Sodium (Chloride) 230 mls @ 115 mls/hr IV Q24H [facility] Stop: 09/20/21 15:59 Insulin Glargine (Insulin Glargine,Hum.Rec.Anlog 100 Unit/Ml 10 Ml Vial) 30 unit SUBCUT BEDTIME [facility] Last Admin: 09/15/21 20:42 Dose: 30 unit Documented by: ADA Insulin Human Lispro (Insulin Lispro 100 Unit/Ml 3 Ml Vial) 0 unit SUBCUT QIDACHS [facility]; Protocol Last Admin: 09/16/21 13:12 Dose: 4 unit Documented by: SONY Lisinopril (Lisinopril 20 Mg Tablet) 20 mg PO DAILY [facility]; Protocol Last Admin: 09/16/21 08:36 Dose: 20 mg Documented by: SONY Melatonin (Melatonin 3 Mg Tablet) 9 mg PO BEDTIME [facility] Last Admin: 09/15/21 20:41 Dose: 9 mg Documented by: ADA Pharmacy Consult (Consult Rx Perform Med Rec) 1 each MISCELLANE ONCE PRN PRN Reason: Consult order Potassium Phos/Sodium Phos (Sodium,Potassium Phosphates Powd.Pack) 1 packet PO BID [facility] Last Admin: 09/16/21 08:36 Dose: 1 packet Documented by: SONY Vitamin D (Cholecalciferol (Vitamin D3) 25 Mcg Tablet) 50 mcg PO DAILY [facility] Last Admin: 09/16/21 08:36 Dose: 50 mcg Documented by: SONY Zinc Sulfate (Zinc Sulfate 220 Mg Capsule) 220 mg PO BID [facility] Last Admin: 09/16/21 08:35 Dose: 220 mg Documented by: SONY Labs CBC & Chem 7: 09/15/21 05:16 09/16/21 08:26 Labs: Laboratory Results - last 24 hr 09/15/21 09/15/21 09/15/21 16:47 17:06 20:03 Anion Gap 16 Estim Creat Clear Calc 132.9 Estimated GFR > 60 POC Glucose 195 H 257 H Random Glucose 225 H Calcium 8.6 Phosphorus Magnesium 09/16/21 09/16/21 09/16/21 07:47 08:26 11:47 Anion Gap 13 Estim Creat Clear Calc 155.3 Estimated GFR > 60 POC Glucose 196 H 189 H Random Glucose 224 H Calcium 8.3 L Phosphorus 1.1 L Magnesium 2.1 Microbiology Microbiology Results: Microbiology 09/14/21 05:32 Blood Culture - Preliminary Blood - Venous No growth after 48 hours. 09/14/21 05:32 Blood Culture - Preliminary Blood - Venous No growth after 48 hours. Assessment and Plan (1) Subcutaneous emphysema: Status: Acute (2) Pneumomediastinum: Status: Acute (3) COVID-19: Status: Acute (4) DKA (diabetic ketoacidosis): Status: Acute (5) Vitamin D deficiency: Status: Acute (6) HLD (hyperlipidemia): Status: Acute (7) HTN (hypertension): Status: Acute (8) T1DM (type 1 diabetes mellitus): Status: Acute Assessment and Plan: 31-year-old male with a past medical history of type 1 diabetes, hypertension, hyperlipidemia, vitamin-D deficiency and a recent diagnosis of COVID-19 presented with symptoms of shortness of breath, headache, abdominal pain, nausea and vomiting of x2 days, tested for COVID-19 day prior to presentation. DKA treated in ICU with IV insulin drip gap closed bicarb normalized Blood sugars stable less than 200 this am Continue insulin sliding scale and Lantus follow blood sugars q.i.d. a.c./ follow BMP. Nausea vomiting abdominal pain likely due to DKA resolved. COVID pneumonia patient noted to have stable oxygenation but have high-grade fevers on IV doxycycline ,on chloroquine and ivermectin by lease out man WBC normalized blood cultures x2 negative D-dimer 773, elevated LDH 305 CRP 6.80, procalcitonin 0.07 Continue zn sulfate, vitamin-C and Pepcid Pneumomediastinum/subcutaneous emphysema due to COVID infection Repeat chest x-ray showed no change Seen by Dr. Murray he recommended remdesivir and CTA chest History of hypertension continue home medications lisinopril 20 mg and amlodipine 5 mg daily follow BP closely Hypophosphatemia with history of vitamin-D deficiency will replace vitamin-D and phosphorous follow levels closely. Phosphorous level dropped from 1.5-1.1, magnesium 2.1 Continue Neutra-Phos t.i.d. DVT prophylaxis will place on Lovenox due to elevated D-dimer Quality Stroke Does the patient have a stroke diagnosis?: No VTE Prior VTE?: No VTE Risk Level:: Medical - low VTE Device Contraindication: N/A - Device Ordered VTE Drug Contraindication: N/A - Med Ordered
[2021-09-16] MEDS: Remdesivir 200 MG in 0.9 % Sodium Chloride 210 ML 105 MG IV (14:48)
[2021-09-16] MEDS: Enoxaparin Sodium 40 MG/0.4 ML SYRINGE SUBCUT (14:48)
[2021-09-16 15:14] VITALS: BP 125/77; PULSE 102; RESP 20; TEMP 37.1; O2SAT 98
[2021-09-16 16:06] LABS: Glucose, Whole Blood 249 mg/dL (60-115)
[2021-09-16] MEDS: Potassium Phosphate/NS 15 MMOL/250 ML PLAST..BAG 62.5 MMOL IV ×2 (17:08→21:28)
[2021-09-16 19:11] VITALS: BP 122/72; PULSE 92; RESP 20; TEMP 37.7; O2SAT 97
[2021-09-16 19:41] LABS: Glucose, Whole Blood 203 mg/dL (60-115)
[2021-09-16] MEDS: Insulin Glargine,Hum.rec.anlog 100 UNIT/ML 10 ML VIAL 30 UNIT SUBCUT (20:20)
[2021-09-16] MEDS: Melatonin 3 MG TABLET 9 MG PO (20:23)
--- NOTE | 2021-09-16 22:00 | PM.CNPUL ---
History of Present Illness History of Present Illness Consult date: 09/16/21 Chief complaint: DKA Narrative: This is an in patient pulmonary consultation. The patient is a 31-year-old male with a past medical history of type 1 diabetes who was in his usual state of health till 2 days ago when he started developing shortness of breath. He tested+ COVID-19. His symptoms worsened and he presented to the ED. CXR with pneumomediatinum. Admitted to the ICU overnight. The cxR was unchanged and [place] [facility] [place]. +ddimer, CTA with covid pneumonia and pneumomediastinum. Currently on RA. Review of Systems Constitutional: Constitutional: Reports fever(s), Reports malaise and Denies night sweats ENT: Denies change in voice, Denies lip swelling, Denies mouth pain, Reports nasal congestion, Reports nasal discharge and Denies tongue swelling Cardiovascular: Cardiovascular: Denies chest pain, Reports dyspnea and Reports dyspnea on exertion Respiratory: Respiratory: Reports cough, Denies pain on inspiration, Denies pain with cough, Reports dyspnea and Reports dyspnea on exertion Gastrointestinal: Gastrointestinal: Denies abdominal pain Musculoskeletal: Musculoskeletal: Denies no additional musculoskeletal complaints Neurologic: Denies Neuro-related abnormal movements Psychiatric: Psychiatric: Denies no additional psychiatric complaints Hematologic/Lymphatic: Hematologic/Lymphatic: Denies easy bleeding and Denies lymphadenopathy Allergic/Immunologic: Allergic/Immunologic: Denies lip swelling and Denies tongue swelling PMFSH Past Medical History Medical History (Updated 09/16/21 @ 22:07 by Nate Murray MD) HLD (hyperlipidemia) HTN (hypertension) Overweight (BMI 25.0-29.9) Pneumonia due to COVID-19 virus T1DM (type 1 diabetes mellitus) Vitamin D deficiency Family History Family History Father Diabetes mellitus Hypertension Mother Hypertension Surgical History Surgical History No significant past surgical history Social History Social History Household Members: Family Housing: House Do you presently have visiting nurse or other home services: No Alcohol intake: current Alcohol intake frequency: a few times a week Patient Tobacco Use Status: Never used Tobacco Substance Use Type: Marijuana service: No Current occupational status: employed Meds Allergies Allergy/AdvReac Type Severity Reaction Status Date / Time No Known Allergies Allergy Verified 09/14/21 05:01 [No Known Allergies*] Active Medications: Current Medications Acetaminophen (Acetaminophen 325 Mg Tablet) 650 mg PO Q6H PRN PRN Reason: Fever Last Admin: 09/16/21 14:48 Dose: 650 mg Documented by: Amlodipine Besylate (Amlodipine Besylate 5 Mg Tablet) 5 mg PO DAILY [facility]; Protocol Last Admin: 09/16/21 08:35 Dose: 5 mg Documented by: Ascorbic Acid (Ascorbic Acid 500 Mg Tablet) 1,000 mg PO QID [facility] Last Admin: 09/16/21 20:39 Dose: 1,000 mg Documented by: Aspirin (Aspirin 325 Mg Tablet) 325 mg PO DAILY [facility] Last Admin: 09/16/21 08:36 Dose: 325 mg Documented by: Enoxaparin Sodium (Enoxaparin Sodium 40 Mg/0.4 Ml Syringe) 40 mg SUBCUT Q24H [facility] Last Admin: 09/16/21 14:48 Dose: 40 mg Documented by: Famotidine (Famotidine 20 Mg Tablet) 40 mg PO BID [facility] Last Admin: 09/16/21 20:22 Dose: 40 mg Documented by: Doxycycline Hyclate 100 mg/ (Sodium Chloride) 250 mls @ 166.67 mls/hr IV Q12H [facility] Last Infusion: 09/16/21 14:50 Dose: Infused Documented by: Remdesivir 100 mg/ Sodium (Chloride) 230 mls @ 115 mls/hr IV Q24H [facility] Stop: 09/20/21 15:59 Potassium Phosphate/NS (Kphos) 15 mmol in 250 mls @ 62.5 mls/hr IV Q4H [facility] Stop: 09/16/21 22:59 Last Admin: 09/16/21 21:28 Dose: 62.5 mls/hr Documented by: Insulin Glargine (Insulin Glargine,Hum.Rec.Anlog 100 Unit/Ml 10 Ml Vial) 30 unit SUBCUT BEDTIME [facility] Last Admin: 09/16/21 20:20 Dose: 30 unit Documented by: Insulin Human Lispro (Insulin Lispro 100 Unit/Ml 3 Ml Vial) 0 unit SUBCUT QIDACHS [facility]; Protocol Last Admin: 09/16/21 20:21 Dose: 8 unit Documented by: Lisinopril (Lisinopril 20 Mg Tablet) 20 mg PO DAILY [facility]; Protocol Last Admin: 09/16/21 08:36 Dose: 20 mg Documented by: Melatonin (Melatonin 3 Mg Tablet) 9 mg PO BEDTIME [facility] Last Admin: 09/16/21 20:23 Dose: 9 mg Documented by: Pharmacy Consult (Consult Rx Perform Med Rec) 1 each MISCELLANE ONCE PRN PRN Reason: Consult order Potassium Phos/Sodium Phos (Sodium,Potassium Phosphates Powd.Pack) 1 packet PO BID [facility] Last Admin: 09/16/21 20:22 Dose: 1 packet Documented by: Vitamin D (Cholecalciferol (Vitamin D3) 25 Mcg Tablet) 50 mcg PO DAILY [facility] Last Admin: 09/16/21 08:36 Dose: 50 mcg Documented by: Zinc Sulfate (Zinc Sulfate 220 Mg Capsule) 220 mg PO TID [facility] Last Admin: 09/16/21 20:22 Dose: 220 mg Documented by: Home Medications Medication Instructions Recorded Confirmed Last Taken Type insulin aspart U-100 100 unit/mL 10 unit SUBCUT TID ml 02/11/21 09/14/21 Unknown History (3 mL) subcutaneous pen (Novolog Flexpen U-100 Insulin aspart) Physical Exam Vital Signs: Vital Signs: Last Vital Signs Temp 99.8 F 09/16/21 19:11 Pulse 92 09/16/21 19:11 Resp 20 09/16/21 19:11 BP 122/72 09/16/21 19:11 Pulse Ox 97 09/16/21 19:11 Oxygen Flow Rate 2 09/14/21 04:53 BMI result Body Mass Index 26.4 Const: General: alert Neck: Neck: Yes normal visual inspection, Yes full ROM and Yes no lymphadenopathy Chest: Chest palpation & inspection: normal inspection of the chest Resp: Auscultation: diminished lung sounds Cardio: Rate: regular rate Rhythm: regular rhythm Heart sounds: S1 normal heart sound present and S2 normal heart sound present GI: Palpation (GI): Soft to palpation and nontender Auscultation: normal bowel sounds Skin: General skin exam: rashes and/or lesions noted Results Laboratory Findings CBC and BMP: 09/15/21 05:16 09/16/21 08:26 Abnormal lab findings: Abnormal Labs 09/14/21 09/14/21 09/14/21 04:45 04:48 04:48 WBC 15.3 H Hct 52.9 H MPV Immature Gran % (Auto) 2.1 H Lymph % (Auto) 13.5 L Pierce % (Auto) 13.5 H Pierce # (Auto) 2.1 H Abs Immat Gran (auto) 0.32 H Absolute Neuts (auto) 10.8 H VBG pH VBG HCO3 Sodium 131 L Chloride 92 L Carbon Dioxide < 5 L* D BUN 27 H Creatinine 2.47 H POC Glucose > 600 H* Random Glucose 834 H* Lactic Acid Calcium Phosphorus Alkaline Phosphatase 119 H Lactate Dehydrogenase C-Reactive Protein Total Protein 8.5 H Ur Specific Boomer Urine Protein Urine Glucose (UA) Urine Blood Acetone, Qual Large H COVID-19 (LITA) 09/14/21 09/14/21 09/14/21 04:48 04:53 04:54 WBC Hct MPV Immature Gran % (Auto) Lymph % (Auto) Pierce % (Auto) Pierce # (Auto) Abs Immat Gran (auto) Absolute Neuts (auto) VBG pH 6.86 L* VBG HCO3 2 L Sodium Chloride Carbon Dioxide BUN Creatinine POC Glucose > 600 H* Random Glucose Lactic Acid 8.2 H* Calcium Phosphorus Alkaline Phosphatase Lactate Dehydrogenase C-Reactive Protein Total Protein Ur Specific Boomer Urine Protein Urine Glucose (UA) Urine Blood Acetone, Qual COVID-19 (LITA) 09/14/21 09/14/21 09/14/21 04:58 05:38 06:45 WBC Hct MPV Immature Gran % (Auto) Lymph % (Auto) Pierce % (Auto) Pierce # (Auto) Abs Immat Gran (auto) Absolute Neuts (auto) VBG pH VBG HCO3 Sodium Chloride Carbon Dioxide BUN Creatinine POC Glucose > 600 H* Random Glucose Lactic Acid Calcium Phosphorus Alkaline Phosphatase Lactate Dehydrogenase C-Reactive Protein Total Protein Ur Specific Boomer >= 1.030 H Urine Protein 1+ H Urine Glucose (UA) >=1000 H Urine Blood 1+ H Acetone, Qual COVID-19 (LITA) Positive A 09/14/21 09/14/21 09/14/21 06:48 06:54 07:58 WBC Hct MPV Immature Gran % (Auto) Lymph % (Auto) Pierce % (Auto) Pierce # (Auto) Abs Immat Gran (auto) Absolute Neuts (auto) VBG pH VBG HCO3 Sodium Chloride Carbon Dioxide < 5 L* BUN 25 H Creatinine 1.92 H POC Glucose 538 H* 447 H* Random Glucose 661 H* Lactic Acid Calcium 8.2 L D Phosphorus 5.5 H Alkaline Phosphatase Lactate Dehydrogenase C-Reactive Protein Total Protein Ur Specific Boomer Urine Protein Urine Glucose (UA) Urine Blood Acetone, Qual COVID-19 (LITA) 09/14/21 09/14/21 09/14/21 08:55 10:30 11:14 WBC Hct MPV Immature Gran % (Auto) Lymph % (Auto) Pierce % (Auto) Pierce # (Auto) Abs Immat Gran (auto) Absolute Neuts (auto) VBG pH VBG HCO3 Sodium Chloride Carbon Dioxide BUN Creatinine POC Glucose 371 H* 238 H 247 H Random Glucose Lactic Acid Calcium Phosphorus Alkaline Phosphatase Lactate Dehydrogenase C-Reactive Protein Total Protein Ur Specific Boomer Urine Protein Urine Glucose (UA) Urine Blood Acetone, Qual COVID-19 (LITA) 09/14/21 09/14/21 09/14/21 12:12 13:08 13:09 WBC Hct MPV Immature Gran % (Auto) Lymph % (Auto) Pierce % (Auto) Pierce # (Auto) Abs Immat Gran (auto) Absolute Neuts (auto) VBG pH VBG HCO3 Sodium Chloride 112 H Carbon Dioxide 10 L* D BUN Creatinine POC Glucose 252 H 198 H Random Glucose 228 H D Lactic Acid Calcium 7.8 L Phosphorus 1.2 L Alkaline Phosphatase Lactate Dehydrogenase C-Reactive Protein Total Protein Ur Specific Boomer Urine Protein Urine Glucose (UA) Urine Blood Acetone, Qual COVID-19 (LITA) 09/14/21 09/14/21 09/14/21 13:54 15:08 16:26 WBC Hct MPV Immature Gran % (Auto) Lymph % (Auto) Pierce % (Auto) Pierce # (Auto) Abs Immat Gran (auto) Absolute Neuts (auto) VBG pH VBG HCO3 Sodium Chloride Carbon Dioxide BUN Creatinine POC Glucose 207 H 206 H 189 H Random Glucose Lactic Acid Calcium Phosphorus Alkaline Phosphatase Lactate Dehydrogenase C-Reactive Protein Total Protein Ur Specific Boomer Urine Protein Urine Glucose (UA) Urine Blood Acetone, Qual COVID-19 (LITA) 09/14/21 09/14/21 09/14/21 17:25 19:52 19:58 WBC Hct MPV Immature Gran % (Auto) Lymph % (Auto) Pierce % (Auto) Pierce # (Auto) Abs Immat Gran (auto) Absolute Neuts (auto) VBG pH VBG HCO3 Sodium Chloride Carbon Dioxide 15 L BUN Creatinine POC Glucose 210 H 239 H Random Glucose 225 H Lactic Acid Calcium 8.0 L Phosphorus 1.8 L Alkaline Phosphatase Lactate Dehydrogenase C-Reactive Protein Total Protein Ur Specific Boomer Urine Protein Urine Glucose (UA) Urine Blood Acetone, Qual COVID-19 (LITA) 09/15/21 09/15/21 09/15/21 05:16 05:16 07:45 WBC Hct MPV 8.9 L Immature Gran % (Auto) Lymph % (Auto) Pierce % (Auto) Pierce # (Auto) Abs Immat Gran (auto) Absolute Neuts (auto) VBG pH VBG HCO3 Sodium Chloride Carbon Dioxide 16 L BUN 8 L Creatinine POC Glucose 258 H Random Glucose 271 H Lactic Acid Calcium Phosphorus 1.5 L Alkaline Phosphatase Lactate Dehydrogenase 305 H C-Reactive Protein 6.80 H Total Protein Ur Specific Boomer Urine Protein Urine Glucose (UA) Urine Blood Acetone, Qual COVID-19 (LITA) 09/15/21 09/15/21 09/15/21 12:03 16:47 17:06 WBC Hct MPV Immature Gran % (Auto) Lymph % (Auto) Pierce % (Auto) Pierce # (Auto) Abs Immat Gran (auto) Absolute Neuts (auto) VBG pH VBG HCO3 Sodium Chloride Carbon Dioxide 19 L BUN 6 L Creatinine POC Glucose 213 H 195 H Random Glucose 225 H Lactic Acid Calcium Phosphorus Alkaline Phosphatase Lactate Dehydrogenase C-Reactive Protein Total Protein Ur Specific Boomer Urine Protein Urine Glucose (UA) Urine Blood Acetone, Qual COVID-19 (LITA) 09/15/21 09/16/21 09/16/21 20:03 07:47 08:26 WBC Hct MPV Immature Gran % (Auto) Lymph % (Auto) Pierce % (Auto) Pierce # (Auto) Abs Immat Gran (auto) Absolute Neuts (auto) VBG pH VBG HCO3 Sodium Chloride Carbon Dioxide BUN 8 L Creatinine POC Glucose 257 H 196 H Random Glucose 224 H Lactic Acid Calcium 8.3 L Phosphorus 1.1 L Alkaline Phosphatase Lactate Dehydrogenase C-Reactive Protein Total Protein Ur Specific Boomer Urine Protein Urine Glucose (UA) Urine Blood Acetone, Qual COVID-19 (LITA) 09/16/21 09/16/21 09/16/21 11:47 16:03 19:38 WBC Hct MPV Immature Gran % (Auto) Lymph % (Auto) Pierce % (Auto) Pierce # (Auto) Abs Immat Gran (auto) Absolute Neuts (auto) VBG pH VBG HCO3 Sodium Chloride Carbon Dioxide BUN Creatinine POC Glucose 189 H 249 H 203 H Random Glucose Lactic Acid Calcium Phosphorus Alkaline Phosphatase Lactate Dehydrogenase C-Reactive Protein Total Protein Ur Specific Boomer Urine Protein Urine Glucose (UA) Urine Blood Acetone, Qual COVID-19 (LITA) Microbiology: Microbiology 09/14/21 05:32 Blood - Venous Blood Culture - Preliminary No growth after 48 hours. 09/14/21 05:32 Blood - Venous Blood Culture - Preliminary No growth after 48 hours. Assessment and Plan (1) Pneumomediastinum: Status: Acute (2) Pneumonia due to COVID-19 virus: Status: Acute (3) COVID-19: Status: Acute Start Remdesivir continue Doxycycline CTA serial imaging Procedures Date of Service Date of Service: 09/16/21
[2021-09-17] VITALS: BP 112/77; PULSE 98; RESP 17; TEMP 36.9; O2SAT 97
[2021-09-17] MEDS: Doxycycline Hyclate 100 MG in 0.9 % Sodium Chloride 250 ML 166.67 MG IV ×2 (01:13→13:08)
[2021-09-17 04:00] VITALS: BP 124/80; PULSE 83; RESP 17; TEMP 36.9; O2SAT 95
[2021-09-17 07:13] LABS: Anion Gap 13 (12-20); Blood Urea Nitrogen 8 mg/dL (9-16); Calcium 8.2 mg/dL (8.4-10.2); Carbon Dioxide 22 mmol/L (22-29); Chloride 106 mmol/L (96-108); Creatinine Clr Calc Pharmacy 181.2; Estimated Glomerular Filt Rate > 60; Glucose Random 125 mg/dL (60-115); Phosphorus 2.7 mg/dL (2.7-4.5); Potassium 2.9 mmol/L (3.3-5.1); Sodium 138 mmol/L (135-145)
[2021-09-17 07:31] LABS: Glucose, Whole Blood 132 mg/dL (60-115)
[2021-09-17 08:00] VITALS: BP 133/87; PULSE 87; RESP 20; TEMP 36.9; O2SAT 96
[2021-09-17] MEDS: Cholecalciferol (Vitamin D3) 25 MCG TABLET 50 MCG PO (09:44)
[2021-09-17] MEDS: Zinc Sulfate 220 MG CAPSULE PO (09:44)
[2021-09-17] MEDS: Aspirin 325 MG TABLET PO (09:44)
[2021-09-17] MEDS: Famotidine 20 MG TABLET 40 MG PO (09:45)
[2021-09-17] MEDS: lisinopriL 20 MG TABLET PO (09:45)
[2021-09-17] MEDS: amLODIPine Besylate 5 MG TABLET PO (09:45)
[2021-09-17] MEDS: Ascorbic Acid 500 MG TABLET 1000 MG PO ×2 (09:45→13:08)
[2021-09-17] MEDS: Sodium,Potassium Phosphates POWD.PACK 1 PACKET PO (09:45)
[2021-09-17] MEDS: Potassium Chloride Packet 20 MEQ PACKET 40 MEQ PO (10:20)
--- NOTE | 2021-09-17 10:24 | P.PNIM_ITS ---
Subjective Subjective Date of Service: 09/17/21 Interval History: F/u covid, subcutaneous emphasema, feels better, no sob, cxr shows improvement Review of Systems no fever, no sob, no Physical Exam Vital Signs: Vital Signs: Last Vital Signs Temp 98.5 F 09/17/21 08:00 Pulse 87 09/17/21 08:00 Resp 20 09/17/21 08:00 BP 133/87 09/17/21 08:00 Pulse Ox 96 09/17/21 08:00 Oxygen Flow Rate 2 09/14/21 04:53 BMI result Body Mass Index 26.4 Objective Data Active Medications Acetaminophen (Acetaminophen 325 Mg Tablet) 650 mg PO Q6H PRN PRN Reason: Fever Last Admin: 09/16/21 14:48 Dose: 650 mg Documented by: SONY Amlodipine Besylate (Amlodipine Besylate 5 Mg Tablet) 5 mg PO DAILY [facility]; Protocol Last Admin: 09/17/21 09:45 Dose: 5 mg Documented by: VANNA Ascorbic Acid (Ascorbic Acid 500 Mg Tablet) 1,000 mg PO QID [facility] Last Admin: 09/17/21 09:45 Dose: 1,000 mg Documented by: VANNA Aspirin (Aspirin 325 Mg Tablet) 325 mg PO DAILY [facility] Last Admin: 09/17/21 09:44 Dose: 325 mg Documented by: VANNA Enoxaparin Sodium (Enoxaparin Sodium 40 Mg/0.4 Ml Syringe) 40 mg SUBCUT Q24H [facility] Last Admin: 09/16/21 14:48 Dose: 40 mg Documented by: SONY Famotidine (Famotidine 20 Mg Tablet) 40 mg PO BID [facility] Last Admin: 09/17/21 09:45 Dose: 40 mg Documented by: VANNA Doxycycline Hyclate 100 mg/ (Sodium Chloride) 250 mls @ 166.67 mls/hr IV Q12H [facility] Last Infusion: 09/17/21 02:55 Dose: 0 mls/hr Documented by: LANRE Remdesivir 100 mg/ Sodium (Chloride) 230 mls @ 115 mls/hr IV Q24H [facility] Stop: 09/20/21 15:59 Insulin Glargine (Insulin Glargine,Hum.Rec.Anlog 100 Unit/Ml 10 Ml Vial) 30 unit SUBCUT BEDTIME [facility] Last Admin: 09/16/21 20:20 Dose: 30 unit Documented by: AUDIE Insulin Human Lispro (Insulin Lispro 100 Unit/Ml 3 Ml Vial) 0 unit SUBCUT QIDACHS [facility]; Protocol Last Admin: 09/17/21 07:40 Dose: Not Given Documented by: VANNA Non-Admin Reason: No Insulin Coverage Lisinopril (Lisinopril 20 Mg Tablet) 20 mg PO DAILY [facility]; Protocol Last Admin: 09/17/21 09:45 Dose: 20 mg Documented by: VANNA Melatonin (Melatonin 3 Mg Tablet) 9 mg PO BEDTIME [facility] Last Admin: 09/16/21 20:23 Dose: 9 mg Documented by: AUDIE Pharmacy Consult (Consult Rx Perform Med Rec) 1 each MISCELLANE ONCE PRN PRN Reason: Consult order Potassium Phos/Sodium Phos (Sodium,Potassium Phosphates Powd.Pack) 1 packet PO BID [facility] Last Admin: 09/17/21 09:45 Dose: 1 packet Documented by: VANNA Vitamin D (Cholecalciferol (Vitamin D3) 25 Mcg Tablet) 50 mcg PO DAILY [facility] Last Admin: 09/17/21 09:44 Dose: 50 mcg Documented by: VANNA Zinc Sulfate (Zinc Sulfate 220 Mg Capsule) 220 mg PO TID [facility] Last Admin: 09/17/21 09:44 Dose: 220 mg Documented by: VANNA Labs CBC & Chem 7: 09/15/21 05:16 09/17/21 06:28 Labs: Laboratory Results - last 24 hr 09/16/21 09/16/21 09/16/21 11:47 16:03 19:38 Anion Gap Estim Creat Clear Calc Estimated GFR POC Glucose 189 H 249 H 203 H Random Glucose Calcium Phosphorus 09/17/21 09/17/21 06:28 07:20 Anion Gap 13 Estim Creat Clear Calc 181.2 Estimated GFR > 60 POC Glucose 132 H Random Glucose 125 H D Calcium 8.2 L Phosphorus 2.7 Microbiology Microbiology Results: Microbiology 09/14/21 05:32 Blood Culture - Preliminary Blood - Venous No growth after 48 hours. 09/14/21 05:32 Blood Culture - Preliminary Blood - Venous No growth after 48 hours. Assessment and Plan (1) Subcutaneous emphysema: Status: Acute (2) Pneumomediastinum: Status: Acute (3) COVID-19: Status: Acute (4) DKA (diabetic ketoacidosis): Status: Acute (5) Vitamin D deficiency: Status: Acute (6) HLD (hyperlipidemia): Status: Acute (7) HTN (hypertension): Status: Acute (8) T1DM (type 1 diabetes mellitus): Status: Acute Assessment and Plan: 31-year-old male with a past medical history of type 1 diabetes, hypertension, hyperlipidemia, vitamin-D deficiency and a recent diagnosis of COVID-19 presented with symptoms of shortness of breath, headache, abdominal pain, nausea and vomiting of x2 days, tested for COVID-19 day prior to presentation. DKA treated in ICU and resovled -continue insulin COVID PNA, with Subcutaneous emphysema, No hypoxia, fever resolved. Started on Remdesevir yesterda--Not sure of indication, also on empric Doxy I will disdcuss with pulmonology and likely discharge. CXR today showed improvment in sub cut emphasema HTN--continue home meds Hypophosphatemia with history of vitamin-D deficiency will replace vitamin-D and phosphorous follow levels closely. Phosphorous level dropped from 1.5-1.1, magnesium 2.1 Continue Neutra-Phos t.i.d. DVT prophylaxis will place on Lovenox due to elevated D-dimer Quality Stroke Does the patient have a stroke diagnosis?: No VTE Prior VTE?: No VTE Risk Level:: Medical - low VTE Device Contraindication: N/A - Device Ordered VTE Drug Contraindication: N/A - Med Ordered
[2021-09-17 11:04] VITALS: BP 117/91; PULSE 90; TEMP 36.3; O2SAT 97
[2021-09-17 11:15] LABS: Glucose, Whole Blood 270 mg/dL (60-115)
[2021-09-17] MEDS: Insulin Lispro 100 UNIT/ML 3 ML VIAL SUBCUT (13:08)
--- NOTE | 2021-09-17 13:37 | P.PNPL_ITS ---
Subjective Subjective Date of Service: 09/17/21 Interval history: 31-year-old gentleman with underlying type 1 diabetes mellitus with DKA, also noted to have COVID, and incidental finding of pneumomediastinum with minimal subcutaneous emphysema. Subcutaneous emphysema appears to improve on follow-up chest x-ray. Patient denies any pulmonary symptoms. Objective Data Labs CBC & Chem 7: 09/15/21 05:16 09/17/21 06:28 Labs: Laboratory Results - last 24 hr 09/16/21 09/16/21 09/17/21 16:03 19:38 06:28 Sodium 138 Potassium 2.9 L Chloride 106 Carbon Dioxide 22 Anion Gap 13 BUN 8 L Creatinine 0.66 Estim Creat Clear Calc 181.2 Estimated GFR > 60 POC Glucose 249 H 203 H Random Glucose 125 H D Calcium 8.2 L Phosphorus 2.7 09/17/21 09/17/21 07:20 11:04 Sodium Potassium Chloride Carbon Dioxide Anion Gap BUN Creatinine Estim Creat Clear Calc Estimated GFR POC Glucose 132 H 270 H Random Glucose Calcium Phosphorus Microbiology Microbiology Results: Microbiology 09/14/21 05:32 Blood - Venous Blood Culture - Preliminary No growth after 48 hours. 09/14/21 05:32 Blood - Venous Blood Culture - Preliminary No growth after 48 hours. Review of Systems Cardiovascular: Denies dyspnea and Denies dyspnea on exertion Respiratory: Denies dyspnea, Denies dyspnea on exertion and Denies wheezing Allergic/Immunologic: Denies wheezing Physical Exam Vital Signs: Vital Signs: Last Vital Signs Temp 97.4 F 09/17/21 11:04 Pulse 90 09/17/21 11:04 Resp 20 09/17/21 08:00 BP 117/91 H 09/17/21 11:04 Pulse Ox 97 09/17/21 11:04 Oxygen Flow Rate 2 09/14/21 04:53 BMI result Body Mass Index 26.4 Const: General: no acute distress, alert and awake Eyes: Sclerae: sclerae normal EOM: EOMs intact bilaterally Neck: Neck: Yes no lymphadenopathy, Yes trachea midline and Yes supple Resp: Effort & Inspection: normal respiratory effort and no respiratory distress Auscultation: clear to auscultation bilaterally Cardio: Rate: regular rate Rhythm: regular rhythm Heart sounds: no gallops, no murmurs and no rubs GI: Palpation (GI): Soft to palpation and Other GI palpation findings present ( Nontender) Auscultation: normal bowel sounds Extrem: General: Yes no pedal edema, No clubbing and No cyanosis Procedures Date of Service Date of Service: 09/17/21 Assessment and Plan Assessment and plan (1) COVID-19: Status: Acute (2) Pneumomediastinum: Status: Acute (3) Subcutaneous emphysema: Status: Acute Assessment and Plan: Impression: 31-year-old gentleman admitted with DKA also noted to have COVID-19, however with no pulmonary symptoms. An incidental finding of pneumomediastinum with subcutaneous emphysema that appears to improvement follow-up x-ray. Patient does not have any physical exam findings of subcutaneous emphysema like crepitus. h any dyspnea. He is normoxemic on room air and specifically denies dyspnea. Recommendations: At this time patient appears to be completely asymptomatic from his COVID-19 infection, his pneumomediastinum is likely secondary to jaquelin brady coughing and is improving. At this time he does not require any specific therapy. Time Spent With Patient Time: Total time spent is greater than 50% in coordination of care (as documented) at patient's floor/unit and/or counseling patient: Time with patient: 25 - 35 minutes Progress Note: Quality Stroke Does the patient have a stroke diagnosis?: No
--- NOTE | 2021-09-17 13:37 | P.DS_ITS ---
DS: Providers Provider Date of Service: 09/17/21 Date of admission: 09/14/21 06:27 Primary care physician: Unknown Physician Consults: 09/16/21 08:04 Consult to Pulmonology Routine Consulting Provider: Nate Murray Reason for consultation: covid fevers/pneumomediatinum Has provider been notified: No DS: Diagnosis Discharge Diagnosis (1) Subcutaneous emphysema: Status: Acute (2) Pneumomediastinum: Status: Acute (3) COVID-19: Status: Acute (4) DKA (diabetic ketoacidosis): Status: Acute (5) Vitamin D deficiency: Status: Acute (6) HLD (hyperlipidemia): Status: Acute (7) HTN (hypertension): Status: Acute (8) T1DM (type 1 diabetes mellitus): Status: Acute DS: Summary Hospital Course Hospital Course: Essentially 31 year old male with type diabetes admitted to the ICU for DKA treatment protocol and tested positive for covid, although he did not have any signficant symptoms and no hypoxia he was nted to have pneumomediastinum and subcutaneous emphysema and had a fever of 101 at some point so that he was treated with Doxycyline. DKA was succuesfully treated in the ICU, because of hatch bcutaneous emphasema and pneumomediastinum, he was observed in the covid unit and never developped shortness of or hypoxia, in fact presetnly sating 97% on room. A repeat xray today shows in reduction in Pneumedistinum. He was started on remdesevir on 09/16 but will interupt it at this time given no indication for it per CDC guidely, will have treat with empiric Augmentin for 5 days. Plan discussed with patient and he feesl comfortable with it. He knows to call 911 should his donciditon change such as shortness of breath, chest pain, dizziness or ther. Plan was also reviewed with pulmonary Time Spent with Patient Time attestation: Total time spent providing and/or coordinating discharge services: Discharge coordination time: Greater than 30 minutes Quality: Stroke Does the patient have a stroke diagnosis?: No Physical Exam Verdana 4l Vital Signs: Verdana 4d Verdana 4d Vital Signs: Verdana 4d Verdana 4Bd Last Vital Signs Verdana 4d Test Baker New 4d Test Baker New 4d Temp 97.4 F 09/17/21 11:04 Christiano Philip 4d Pulse 90 09/17/21 11:04 Christiano Moody 4d Resp 20 09/17/21 08:00 BP 117/91 H 09/17/21 11:04 Pulse Ox 97 09/17/21 11:04 Oxygen Flow Rate 2 09/14/21 04:53 BMI result Body Mass Index 26.4 DS: Data Data Completed and Pending Labs on day of discharge: Laboratory Results - last 24 hr 09/16/21 09/16/21 09/17/21 16:03 19:38 06:28 Sodium 138 Potassium 2.9 L Chloride 106 Carbon Dioxide 22 Anion Gap 13 BUN 8 L Creatinine 0.66 Estim Creat Clear Calc 181.2 Estimated GFR > 60 POC Glucose 249 H 203 H Random Glucose 125 H D Calcium 8.2 L Phosphorus 2.7 09/17/21 09/17/21 07:20 11:04 Sodium Potassium Chloride Carbon Dioxide Anion Gap BUN Creatinine Estim Creat Clear Calc Estimated GFR POC Glucose 132 H 270 H Random Glucose Calcium Phosphorus Preliminary micro results at discharge 09/14/21 05:32 Blood Culture - Preliminary Blood - Venous No growth after 48 hours. 09/14/21 05:32 Blood Culture - Preliminary Blood - Venous No growth after 48 hours. Discharge Plan Discharge Anticipated Discharge Date/Time: 09/17/21 13:29 Patient Disposition: Home, Self-Care Discharge Diagnosis: DKA, covid, pneumomediastinum, Referrals: Physician,Unknown J [Primary Care Provider] - 1 Week Discharge Medications: New amoxicillin-pot clavulanate [Augmentin] 875-125 mg tablet 1 tab PO BID Qty: 9 RF: 0 Continued amlodipine 5 mg tablet 5 mg PO DAILY Qty: 30 RF: 3 lisinopril 20 mg tablet 20 mg PO DAILY Qty: 90 RF: 1 (DME) lancets [FreeStyle Lancets] 28 gauge misc See Rx Instructions .ROUTE .MEDSUPPLY Qty: 100 RF: 12 insulin aspart U-100 [Novolog Flexpen U-100 Insulin] 100 unit/mL (3 mL) insulin pen 10 unit subcut TID RF: 0 atorvastatin 40 mg tablet 40 mg PO DAILY 30 Days Qty: 30 RF: 11 Changed Lantus Solostar U-100 Insulin 100 unit/mL (3 mL) insulin pen 30 unit subcut QPM Qty: 15 RF: 2 Discharge Orders: Discharge Order (Routine); Ordered 09/17/21 Ordered By: Betito Klein Diet: advance to usual diet and diabetic diet Activity on Discharge: As tolerated Stand Alone Forms: Patient Portal Discharge page Care Plan Goals: prevent rehospitalization for DKA and full recovery from covid Health Concerns: dka, covid, penumomediastinum and subcutaneous emphasema Plan of Treatment: Take Agumentin as recommended, use cough medicationa as needed and if you notice any change in your condition, propmtly call 911, follow up with your primary care Doctor jocy week Assessment: As above
--- NOTE | 2021-09-17 14:04 | MHC.CM.PN ---
Male 31 Covid+ He is discharged home today. No home services have been ordered. The Pt has arranged for transportation home from Family.
[2021-09-17] MEDS: Amoxicillin/Potassium Clav 875 MG TABLET PO (14:44)
[2021-09-17 15:18] VITALS: BP 124/79; PULSE 88; RESP 20; TEMP 36.6; O2SAT 98
== END 2021-09-17 16:32 | disposition home or self-care (01) | DRG 137 ==
LOC: HO.ED 04:59 → HO.EDOVER 06:39 → HO.ICU 06:52 → HO.IMC 09-15 17:13
PROVIDERS: Anesthesiology; Hospitalist; Admitting Provider Physician Assistant; Emergency Provider Student in an Organized Health Care Education/Training Program; PCP Internal Medicine; Visit Provider Internal Medicine
DX: U07.1 COVID-19 (principal); J12.82 Pneumonia due to coronavirus disease 2019; E11.10 Type 2 diabetes mellitus with ketoacidosis without coma; E78.5 Hyperlipidemia, unspecified; E55.9 Vitamin D deficiency, unspecified; J98.2 Interstitial emphysema; I10 Essential (primary) hypertension; Z79.4 Long term (current) use of insulin; Z79.899 Other long term (current) drug therapy
CPT/HCPCS: 36415; 71045; 71275; 80048; 80053; 81001; 82009; 82803; 82947; 83605; 83615; 83735; 84100; 84145; 85014; 85018; 85025; 85027; 85379; 86140; 87040; 87635; 93005; 96361; 96365; 96375; 99285; J1650; J3475; J3490; Q9967

== ENCOUNTER 2023-03-19 11:17 | Outpatient (REF) | payer OTHER, SELFPAY ==
[2023-03-19 11:31] LABS: MANUAL DIFF FLAG NO
[2023-03-19 11:52] LABS: Basophils Percent Auto 0.8 % (0-2); Eosinophils Absolute Auto 0.1 X10*3/uL (0.0-0.4); Eosinophils Percent Auto 1.9 % (0-4); Hematocrit 46.2 % (42.0-52.0); Hemoglobin 16.6 g/dl (14.0-18.0); Imm Gran Abs Auto 0.04 X10*3/uL (0.00-0.03); Imm Gran Pct Auto 0.8 % (0.0-0.4); Lymphocytes Absolute Auto 2.3 X10*3/uL (1.2-4.9); Lymphocytes Percent Auto 43.5 % (20-40); Mean Corpuscular HGB Conc 35.9 g/dl (31.0-36.0); Mean Corpuscular Hemoglobin 30.9 pg (27.0-33.0); Mean Platelet Volume 8.8 fL (9.4-12.4); Monocytes Absolute Auto 0.4 X10*3/uL (0.1-1.2); Monocytes Percent Auto 6.9 % (2-11); Neutrophils Absolute Auto 2.5 x10*3/uL (2.0-8.3); Neutrophils Percent Auto 46.1 % (45-73); Platelet Count 211 X10*3/uL (160-400); Red Blood Count 5.37 X10*6/uL (4.60-5.80); Red Cell Distribution Width 11.6 % (11.0-16.0); White Blood Count 5.3 X10*3/uL (4.8-10.8)
[2023-03-19 12:01] LABS: Hemoglobin A1c % > 14.0 %
[2023-03-19 12:03] LABS: Appearance Urine Clear; Color Urine Yellow; Glucose Urine UA >=1000 mg/dL (Negative); Leukocyte Esterase Urine Negative (Negative); Nitrite Urine Negative (Negative); PH 6.5 (5.0-9.0); Specific Gravity - Urine >= 1.030 (1.005-1.025); UMIC TRIGGER UACC YES; Urine Blood Negative (Negative); Urine Ketones 80 mg/dL (Negative); Urine Protein 30 (1+) mg/dL (Neg-Trace)
[2023-03-19 12:06] LABS: Bacteria Urine None Seen (None Seen); Hyaline Casts Urine 0-2 /LPF (0-2); RBC Urine 0-2 /HPF (0-2); Squamous Epithelial Cell Urine 0-2 /HPF (0-2); WBC Urine 0-5 /HPF (0-5)
[2023-03-19 12:23] LABS: Alanine Aminotransferase 42 U/L (0-40); Albumin Level 4.2 g/dL (3.5-5.0); Alkaline Phosphatase 122 U/L (39-117); Anion Gap 14 (12-20); Aspartate Amino Transferase 28 U/L (5-37); Bilirubin Total 0.6 mg/dL (0.0-1.0); Blood Urea Nitrogen 12 mg/dL (9-16); Calcium 9.5 mg/dL (8.4-10.2); Carbon Dioxide 26 mmol/L (22-29); Chloride 98 mmol/L (96-108); Cholesterol 192 mg/dL; Estimated Glomerular Filt Rate > 60; Glucose Fasting 335 mg/dL (60-99); HDL Cholesterol 42 mg/dL; LDL Cholesterol Calculated 121 mg/dl; Sodium 134 mmol/L (135-145); Total Protein 7.7 g/dL (6.5-8.0); Triglycerides 148 mg/dL
[2023-03-19 12:32] LABS: TSH reflex Free T4 1.22 uIU/mL (0.32-4.0); Vitamin D 25-OH Total 35.2 ng/mL (>30)
[2023-03-19 13:37] LABS: Creatinine Urine 47.68 mg/dL; Microalbum/Creatinine Ratio Ur 266.3 ug/mg cr
== END 2023-03-19 11:18 | disposition home or self-care (01) ==
LOC: HO.LAB 11:17
PROVIDERS: PCP Internal Medicine; Visit Provider Internal Medicine
DX: Z00.00 Encounter for general adult medical examination without abnormal findings (principal); E78.00 Pure hypercholesterolemia, unspecified; E11.9 Type 2 diabetes mellitus without complications; I10 Essential (primary) hypertension; E55.9 Vitamin D deficiency, unspecified; R30.0 Dysuria
CPT/HCPCS: 36415; 80053; 80061; 81001; 81003; 82043; 82306; 83036; 84443; 85025

== ENCOUNTER 2024-09-30 15:43 | Outpatient (AMB) | payer OTHER, SELFPAY ==
--- NOTE | 2024-09-30 16:26 | A.OFFPC_ITS ---
Vital Signs 09/30/24 16:27 Height 6 ft Weight 185 lb BMI 25.1 BP 124/88 Blood Pressure Location Lt brachial Position Sitting Pulse 114 H Pulse Source Pulse Oximeter Pulse Oximetry (%) 98 Oxygen Delivery Method Room Air Intake Visit Reasons: medication refill Delivery Agent Required: No Accompanied by: Self / Same As Patient Allergies No Known Allergies [No Known Allergies*] Allergy (Verified 09/30/24 16:37) Medication List - Last Reconciled 10/02/24 by ILDEFONSO Jacinto blood sugar diagnostic (FreeStyle Lite Strips) USE TO TEST THREE TIMES A DAY insulin glargine (Lantus Solostar U-100 Insulin) 40 units (0.4 mL) subcut QPM insulin lispro (Admelog SoloStar U-100 Insulin lispro) 15 units (0.15 mL) subcut TID 30 days lancets (FreeStyle Lancets) As directed lisinopril 20 mg PO DAILY lisinopril 5 mg PO DAILY 30 days Novolog FlexPen U-100 Insulin (insulin aspart U-100) 15 units (0.15 mL) subcut TID NS pen needle, diabetic (BD Ultra-Fine Shraddha Pen Needle) 1 ea subcut QID potassium chloride ER 20 mEq PO DAILY Tobacco use date assessed: 03/03/23 HPI medication refill HPI Details The patient is a 34 year old male with significant past medical history of type 1 diabetes, hypercholesterolemia He is patient of Dr. Caballero. He was last seen on 03/04/23 for an annual evaluation. The patient was supposed to have a 4 month follow up at that time. The patient was last seen by endocrinology on 02/01/[address] Ro Ramirez, note review. There was a recommendation for insulin pump and CGM. It does not appeared that patient followed up. The patient is presenting today for a medication refill request. He states that he is ok on his fast acting insulin, but he is almost out of his Lantus. He re ports that he only check his blood sugar if he feels off, maybe once a week. a1c in office 13.7%. Will increase lantus to 40 units daily. Will hold off on changing fast acting since the patient is not accustom to checking blood sugar regularly. Referral to endocrinology for possible and insulin pump. Will send the patient for blood work gema. He reports that he has not been taking lisinopril for over 2 years now. He is prescribed 20 mg of lisinopril daily. His blood pressure is within goal, except is heart rate slightly elevated at 114. He reports that he feels fine, denies chest pain or SOB, heart palpitation or dizziness. Heart rhythm was regular and the patient endorses caffeine intake prior to visit. Will reorder lisinopril at 5mg for renoprotection, increased lantus to 40 units daily. Referral to endocrinology for possible and insulin pump. Will check [facility] Medical History Pure hypercholesterolemia Pneumonia due to COVID-19 virus Vitamin D deficiency HLD (hyperlipidemia) HTN (hypertension) T1DM (type 1 diabetes mellitus) Overweight (BMI 25.0-29.9) Surgical History No significant past surgical history Family History Father Diabetes mellitus Hypertension Mother Hypertension Social History Household Members: Family Housing: House Do you presently have visiting nurse or other home services: No Alcohol intake: current Alcohol intake frequency: a few times a week Patient Tobacco Use Status: Never used Tobacco e-Cigarette/Vaping Use: Never Used Substance Use Type: Marijuana service: No Current occupational status: employed Cognitive needs: No Hearing needs: No Vision needs: No Questionnaire PHQ-9 Over the last 2 weeks, how often have you been bothered by any of the following problems? 1. Little interest or pleasure in doing things: not at all 2. Feeling down, depressed, or hopeless: not at all 3. Trouble falling or staying asleep, or sleeping too much: not at all 4. Feeling tired or having little energy: not at all 5. Poor appetite or overeating: not at all 6. Feeling bad about yourself - or that you are a failure or have let yourself or your family down: not at all 7. Trouble concentrating on things, such as reading the newspaper or watching television: not at all 8. Moving or speaking so slowly that other people could have noticed. Or the opposite - being so fidgety or restless that you have been moving around a lot more than usual: not at all 9. Thoughts that you would be better off or of hurting yourself in some way: not at all Total score: 0 Depression Screening Interpretation: Negative Depression Screening Done: Yes 46905 - PHQ-9 Billing: Yes Source: Developed by Drs. Willam Nunez, Nataliia Valentine, Salvatore Wilkerson and colleagues, with an educational marissa from [employer]. Thrive Questionnaire Date Thrive assessed: 09/30/24 I am a: Patient What is your living situation today?: I have a steady place to live Within the past 12 months, did the food you bought not last and you didn't have the money to get more?: Never true Within the past 12 months, did you worry whether your food would run out before you got money to buy more?: Never true Do you have trouble paying for medicines?: No Do you have trouble getting transportation to medical appointments?: No Do you have trouble paying your heating and electricity bill?: No Do you have trouble taking care of your child, family member or friend?: No Do you have trouble with day-to-day activities such as bathing, preparing meals, shopping, managing finances, etc.?: No Are you currently unemployed and looking for a job?: No Are you interested in more education?: No Please select the resources that you would like help with: None Currently or been in a relationship where the following occur: No concerns reported THRIVE Score: 0 AUDIT C Alcohol Use Questionnaire (AUDIT-C) 1. How often do you have a drink containing alcohol?: Monthly or less 2. How many drinks containing alcohol do you have on a typical day when you are drinking?: 1 or 2 3. How often do you have six or more drinks on one occasion?: Never Total Score: 1 Score Reviewed/Action Taken: Yes KIERA-7 AMB Questionnaire KIERA-7 Date KIERA - 7 assessed: 09/30/24 Feeling nervous, anxious, or on edge: 0 = Not at all Not being able to stop or control worryin = Not at all Worrying too much about different things: 0 = Not at all Trouble relaxin = Not at all Being so restless that it is hard to sit still: 0 = Not at all Becoming easily annoyed or irritable: 0 = Not at all Feeling afraid as if something awful might happen: 0 = Not at all Total KIERA-7 score (0-4 normal; 5-9 mild; 10-14 moderate; 15-21 severe): 0 Source: Developed by Drs. Willam Nunez, Nataliia Valentine, Salvatore Wilkerson and colleagues, with an educational marissa from [employer]. KIERA-7 Assessment Billing KIERA-7 Assessment Tool: KIERA-7 Assessment 31405 Review of Systems Const Details: Denies chills, Denies fatigue, Denies fever(s), Denies headache(s) and Denies weakness HEENT Denies change in vision, Denies dizziness, Denies headache(s), Denies hearing loss, Denies nasal congestion, Denies sinus pain, Denies sinus pressure and Denies sore throat Card Denies chest pain, Denies lightheadedness, Denies dyspnea and Denies other (palpitations) Resp Denies cough, Denies dyspnea and Denies wheezing GI Denies abdominal pain, Denies melena, Denies hematochezia, Denies change in bowel habits, Denies dyspepsia and Denies nausea Denies hematuria and Denies dysuria Musc Denies abnormal gait, Denies myalgias, Denies arthralgias, Denies numbness and Denies tingling Skin/Breast Denies rash, Denies unusual bruising and Denies wounds Neuro Denies abnormal gait, Denies dizziness, Denies headache(s), Denies memory loss, Denies numbness, Denies Sensory deficit (Neuro), Denies tingling and Denies weakness Psych Denies anxiety, Denies depression and Denies memory loss Endo Denies cold intolerance, Denies fatigue, Denies heat intolerance, Denies polydipsia and Denies polyuria Yury/Lymph Denies easy bleeding and Denies easy bruising Aller/Immun Denies wheezing Physical exam (Primary Care) Vital Signs: Last Vital Signs Pulse 114 H 09/30/24 16:27 BP 124/88 09/30/24 16:27 Pulse Ox 98 09/30/24 16:27 Oxygen Delivery Method Room Air 09/30/24 16:27 BMI result Body Mass Index 25.1 Tobacco/Smoking Status: Tobacco use Status Tobacco use date assessed 03/03/23 09/30/24 16:27 Patient Tobacco Use Status Never used Tobacco 09/30/24 16:27 e-Cigarette/Vaping Use Never Used 09/30/24 16:27 PHQ-9: PHQ-9 Score PHQ-9: Total score 0 10/02/24 01:39 Depression Screening Interpretation: Negative Thrive Assessment: Date of Thrive Assessment Date Thrive assessed 09/30/24 09/30/24 16:29 Currently or been in a relationship where the following occur: No concerns reported Const Other: General: no acute distress, well developed, alert and awake Nutritional Appearance: well nourished Orientation/consciousness: patient oriented x3 HENMT Head: Yes normocephalic and Yes atraumatic Eyes Pupils: Equal, round and reactive pupils present and Pupil accommodation reflex normal Neck Neck: Yes normal visual inspection Thyroid: Thyroid normal Carotids: no bruits Lymphatic: no lymphadenopathy noted Chest Chest palpation & inspection: normal inspection of the chest Resp Effort & Inspection: normal respiratory effort Auscultation: clear to auscultation bilaterally Cardio Rate: tachycardia Rhythm: regular rhythm Heart sounds: S1 normal heart sound present, S2 normal heart sound present, no gallops, no murmurs and no rubs Bruits: no abdominal aortic bruits and no carotid bruits GI Palpation (GI): No Abdominal aortic bruit present, Soft to palpation, nontender, No hepatosplenomegaly present and No Rebound tenderness present Auscultation: normal bowel sounds General: Yes no CVA tenderness Back/Spine/Pelvis Back: no CVA tenderness Skin General: warm and dry. Normal skin color. Normal skin turgor Lesions: no lesions Neuro General: patient oriented x3, gait normal Cranial nerves: Yes Equal, round and reactive pupils present Cognition (Neuro): normal cognition Gait exam (Neuro): Normal gait present Extrem General: Yes normal to inspection, No edema and No calf tenderness Psych Appearance: grossly normal Affect: normal affect Attitude: cooperative Thought process: Normal thought process present Office Procedures Flu Questionnaire Does the patient have a severe egg allergy?: No Does the patient have severe life threatening allergies?: No Does the patient have a fever or illness today?: No Has the patient ever had Guillain-Windsor Syndrome?: No Has the patient ever had any past reaction to a flu shot?: No Results AMB Hemoglobin A1c AMB Hemoglobin A1c 13.7 % Last Edit by MARIA E Collier on 09/30/24 16:34 Immunizations Fluarix Triv [id number] (PF) 45 mcg (15 mcg x 3)/0.5 mL IM syringe Performing Provider: ILDEFONSO Jacinto [place] [facility] [facility] Documented (not given) by: MARIA E Collier on 09/30/24 16:34 Reason Not Given: Patient Refused Results Reviewed Results Reviewed: Laboratory Last Values Hgb A1c (Clinic) 13.7 % (4.0-6.0) H 09/30/24 16:22 Coding Level of Care Code Est Pt Level 4 (86014) Diagnoses Pure hypercholesterolemia E78.00 Type 1 diabetes mellitus with hyperglycemia E10.65 Diabetes mellitus complication status: with hyperglycemia Overweight (BMI 25.0-29.9) E66.3 Additional Codes KIERA-7 Assessment Billing - KIERA-7 Assessment Tool: KIERA-7 Assessment 09187 ([id number]) PHQ-9 - 29236 - PHQ-9 Billing: Yes ([id number]) Assessment & Plan Assessment & Plan (1) Pure hypercholesterolemia: Code(s): E78.00 - Pure hypercholesterolemia, unspecified Category: Medical Plan: LDL was elevated last lab in 2022. Lipid panel ordered. Encouraged a diet low in cholesterol/frequent activity (2) T1DM (type 1 diabetes mellitus): Code(s): E10.9 - Type 1 diabetes mellitus without complications Category: Medical Qualifiers: Diabetes mellitus complication status: with hyperglycemia Qualified Code(s): E10.65 - Type 1 diabetes mellitus with hyperglycemia Plan: Poorly controlled: a1c is 13.7% in office. Reports compliance with insulin, but does not monitor his blood sugar regularly. Increase Lantus to 40 units daily, continues fast acting insulin 15 units TID. Get blood work done gema Continue Lisinopril 5 mg QD for renoprotection Referred to endocrinology (3) Overweight (BMI 25.0-29.9): Code(s): E66.3 - Overweight Category: Medical Plan: Diet/exercise discussed in detail Encouraged to exercise for at least 30 minutes a day/5 days a week Healthy eating discussed. Encouraged to eat fruits/vegetables, protein- fish/baked chicken, and to avoid salty/fried foods, sweets, caffeine and carbohydrates. Encouraged to increase water intake 6-8 glasses a day Plan Keep upcoming CPE appt on 12/14/24 Orders: Orders AMB Hemoglobin A1c 09/30/24 E10.65 - Type 1 diabetes mellitus with hyperglycemia Comprehensive [place]. Panel Fast 10/07/24 E10.65 - Type 1 diabetes mellitus with hyperglycemia, E78.00 - Pure hypercholesterolemia, unspecified Glucose Fasting 10/07/24 E10.65 - Type 1 diabetes mellitus with hyperglycemia, E78.00 - Pure hypercholesterolemia, unspecified Hemoglobin A1c 10/07/24 E10.65 - Type 1 diabetes mellitus with hyperglycemia, E78.00 - Pure hypercholesterolemia, unspecified Lipid Panel 10/07/24 E10.65 - Type 1 diabetes mellitus with hyperglycemia, E78.00 - Pure hypercholesterolemia, unspecified Influenza [id number] Immunization 09/30/24 E10.65 - Type 1 diabetes mellitus with hyperglycemia Complete Blood Count Auto Diff 10/07/24 E10.65 - Type 1 diabetes mellitus with hyperglycemia, E78.00 - Pure hypercholesterolemia, unspecified Vitamin D 25-OH Total 10/07/24 E10.65 - Type 1 diabetes mellitus with hyperglycemia, E78.00 - Pure hypercholesterolemia, unspecified Microalbumin, Random (w Creat) 10/07/24 E10.65 - Type 1 diabetes mellitus with hyperglycemia, E78.00 - Pure hypercholesterolemia, unspecified UA CC w/rflx Micro + Cult 10/07/24 E10.65 - Type 1 diabetes mellitus with hyperglycemia, E78.00 - Pure hypercholesterolemia, unspecified Referrals Endocrinology Referral E10.65 - Type 1 diabetes mellitus with hyperglycemia Medications: New lisinopril 5 mg PO DAILY 1 tab 3RF Changed From insulin glargine as directed 30 units (0.3 mL) subcut QPM 15 mL 0RF E10.9 - Type 1 diabetes mellitus without complications To insulin glargine (Lantus Solostar U-100 Insulin) as directed 40 units (0.4 mL) subcut QPM 15 mL 3RF E10.9 - Type 1 diabetes mellitus without complications On Hold lisinopril Hold Comment: Doctor's Order 20 mg PO DAILY 90 tabs 1RF
[2024-09-30 16:27] VITALS: BP 124/88; PULSE 114; O2SAT 98; BMI 25.1
== END 2024-09-30 17:05 | disposition home or self-care (01) ==
PROVIDERS: PCP Internal Medicine
DX: E10.65 Type 1 diabetes mellitus with hyperglycemia (principal)

== ENCOUNTER → 2024-09-30 15:43 | Outpatient (BNVA) | payer OTHER, SELFPAY | PROVIDERS: PCP Internal Medicine | DX: E10.65 Type 1 diabetes mellitus with hyperglycemia (principal); E78.00 Pure hypercholesterolemia, unspecified; E66.3 Overweight; Z68.25 Body mass index [BMI] 25.0-25.9, adult; Z79.4 Long term (current) use of insulin | CPT/HCPCS: 83036; 90471; 96127 ==

== ENCOUNTER 2024-11-13 09:24 | Inpatient (IN) | payer OTHER, SELFPAY ==
[2024-11-13] VITALS (14 sets, daily range): BP systolic 134–168; BP diastolic 83–110; PULSE 97–151; RESP 10–18; TEMP 36.7–37.2; O2SAT 97–100; BMI 22.5
--- NOTE | 2024-11-13 | ECG_ITS ---
Test Reason : TACHY Blood Pressure : */* mmHG Vent. Rate : 134 BPM Atrial Rate : 134 BPM P-R Int : 142 ms QRS Dur : 90 ms QT Int : 288 ms P-R-T Axes : 77 101 58 degrees QTcB Int : 430 ms Sinus tachycardia Right atrial enlargement Rightward axis Nonspecific ST abnormality Abnormal ECG When compared with ECG of 14-Sep-2021 05:18, T wave amplitude has decreased in Anterolateral leads Referred By: Peggy Hancock Electronically Signed By: DHIRAJ PRAJAPATI
--- NOTE | 2024-11-13 | ECG_ITS ---
Test Reason : TACHYCARDIA Blood Pressure : */* mmHG Vent. Rate : 107 BPM Atrial Rate : 107 BPM P-R Int : 150 ms QRS Dur : 90 ms QT Int : 356 ms P-R-T Axes : -15 27 19 degrees QTcB Int : 475 ms Sinus tachycardia Otherwise normal ECG When compared with ECG of 13-Nov-2024 10:09, Questionable change in QRS axis ST no longer elevated in Inferior leads Nonspecific T wave abnormality now evident in Anterior leads Referred By: Peggy Hancock Electronically Signed By: DHIRAJ PRAJAPATI
--- NOTE | ~2024-11-13 | XR_ITS ---
CLINICAL HISTORY: Please Assess Any Infectious Process 1 view chest x-ray Comparison: None Findings: No consolidation or effusion. Normal size heart. No acute fracture. IMPRESSION: 1. No acute findings. This document has been electronically signed by: Lindsey Seth MD on 11/13/2024 12:35:12
--- NOTE | 2024-11-13 10:06 | ED.GENADULT ---
HPI - General Adult General Chief complaint: Abdominal Pain Stated complaint: vomiting Time Seen by Provider: 11/13/24 09:59 Source: patient Mode of arrival: ambulatory Limitations: no limitations History of Present Illness HPI narrative: This is a 34 years old male with a history of type 1 diabetes presented to the emergency department complaining of nausea vomiting for about 3 days. Onset (ago): day(s) (3) Radiation: non-radiation Severity: moderate Quality: burning Pain Consistency: constant Relieving factors: none Exacerbating factors: none Associated symptoms: denies other symptoms Related Data Home Medications ?Medication ?Instructions ?Recorded ?Confirmed insulin glargine 100 unit/mL (3 20 unit subcut BEDTIME 11/13/24 11/13/24 mL) subcutaneous pen (Lantus Solostar U-100 Insulin) insulin lispro 100 unit/mL 1 sliding scale dose subcut TIDAC 11/13/24 11/13/24 subcutaneous pen (Admelog SoloStar U-100 Insulin lispro) Previous Rx's ?Medication ?Instructions ?Recorded lancets 28 gauge (FreeStyle #100 ea 02/09/21 Lancets) blood sugar diagnostic (FreeStyle ##100 02/26/22 Lite Strips) lisinopril 5 mg tablet 5 mg PO DAILY 30 days #30 tabs 10/01/24 Allergies Allergy/AdvReac Type Severity Reaction Status Date / Time No Known Allergies Allergy Verified 11/13/24 09:54 [No Known Allergies*] Review of Systems Constitutional: Constitutional: Reports no additional constitutional complaints ENT: Reports system reviewed and no additional complaints, except as documented Cardiovascular: Cardiovascular: Reports no additional cardiovascular complaints Respiratory: Respiratory: Reports no additional respiratory complaints [facility] Past Medical History Attestation statement: The following information was validated with the patient. [facility] Narrative: type 1 diabetes Medical History Pure hypercholesterolemia Pneumonia due to COVID-19 virus Vitamin D deficiency HLD (hyperlipidemia) HTN (hypertension) T1DM (type 1 diabetes mellitus) Overweight (BMI 25.0-29.9) Surgical History No significant past surgical history Family History Family History Father Diabetes mellitus Hypertension Mother Hypertension Social History Social History Household Members: Family Housing: House Do you presently have visiting nurse or other home services: No Alcohol intake: current Alcohol intake frequency: 3 or more drinks per day Patient Tobacco Use Status: Never used Tobacco Smoked in Last 30 Days: No e-Cigarette/Vaping Use: Never Used Use of substances other than those prescribed or required for medical reasons: Yes Substance Use Type: Marijuana Substance Use Frequency: Chronic Longstanding Advance Directives: No Advance Directives Information Provided: No Do you have a plan to hurt others: No Plan Recently lost weight without trying: No service: No Current occupational status: employed Cognitive needs: No Hearing needs: No Vision needs: No Physical Exam ED Vital Signs: Vital Signs - 24 hr 11/13/24 09:52 11/13/24 10:02 Temperature 98.1 F 98.4 F Pulse Rate 151 H 142 H Respiratory Rate 18 18 Blood Pressure 139/109 H 168/109 H Pulse Oximetry 99 100 Oxygen Delivery Method Room Air Room Air BMI result Body Mass Index 22.5 Tachycardic mild distress Const General: alert Nutritional Appearance: average body habitus Orientation/consciousness: patient oriented x3 HENMT Head: Yes normal to inspection General nose exam: Normal external nose present Face and sinus: Yes normal facial exam Mouth: Normal oral and palatal mucosa present Neck Neck: Yes normal visual inspection and Yes full ROM Chest Chest palpation & inspection: normal inspection of the chest Resp Effort & Inspection: normal respiratory effort Cardio Jugular venous distension: no JVD Rate: regular rate and tachycardic Rhythm: regular rhythm GI Inspection: Yes normal to inspection Palpation (GI): Soft to palpation and not firm Auscultation: normal bowel sounds Skin General skin exam: no rashes or lesions noted and elasticity normal Neuro General: patient oriented x3 Cranial nerves: Yes CN's II-XII intact bilaterally Gait exam (Neuro): Normal gait present Extrem General: Yes normal to inspection Right upper extremity: normal to inspection Course Reevaluation(s) Reevaluation #1: Clinical picture consistent with diabetes ketoacidosis still very tachycardic discussed with the ICU team he was accepted to the ICU insulin drip ongoing family at bedside Time: 11:38 Medications Administered Generic Name Dose Route Start Last Admin Trade Name Freq PRN Reason Stop Dose Admin Heparin Sodium (Porcine) 5,000 unit 11/13/24 12:00 11/13/24 11:54 Heparin Sodium,Porcine 5,000 Unit/Ml Vial SUBCUT 5,000 unit Q8H SMILEY Administration Insulin Human Regular 100 unit in 100 mls @ 8 mls/hr 11/13/24 11:30 11/13/24 15:12 Myxredlin IVCONT 6 unit/hr .[id number] SMILEY 6 mls/hr Titration Protocol 8 UNIT/HR Dextrose/Lactated Ringer's 1,000 mls @ 100 mls/hr 11/13/24 13:00 11/13/24 13:14 D5lr IVCONT 100 mls/hr .Q10H SMILEY Administration Potassium Phosphate 15 mmol in 250 mls @ 62.5 mls/hr 11/13/24 12:52 11/13/24 13:07 Kphos IV 11/13/24 16:51 62.5 mls/hr ONCE ONE Administration Discontinued Medications Generic Name Dose Route Start Last Admin Trade Name Freq PRN Reason Stop Dose Admin Sodium Chloride 1,000 mls @ 999 mls/hr 11/13/24 10:15 11/13/24 11:24 Ns IVCONT 11/13/24 11:15 Infused .Q1H1M SMILEY Infusion Sodium Chloride 1,000 mls @ 999 mls/hr 11/13/24 10:15 11/13/24 11:25 Ns IVCONT 11/13/24 11:15 Infused .Q1H1M SMILEY Infusion Potassium Chloride 10 meq in 100 mls @ 100 mls/hr 11/13/24 11:45 11/13/24 16:04 Potassium Chloride/H20 IV 11/13/24 15:44 Infused Q1H SMILEY Infusion Lactated Ringer's 1,000 mls @ 999 mls/hr 11/13/24 11:45 11/13/24 12:41 Lr IV 11/13/24 12:45 Infused .Q1H1M SMILEY Infusion Lactated Ringer's 1,000 mls @ 999 mls/hr 11/13/24 13:00 11/13/24 14:18 Lr IV 11/13/24 14:00 Infused .Q1H1M SMILEY Infusion Magnesium Sulfate/Dextrose 1 gm in 100 mls @ 100 mls/hr 11/13/24 12:52 11/13/24 14:18 Magnesium Sulfate/D5w IV 11/13/24 13:51 Infused ONCE ONE Infusion Insulin Human Lispro 10 unit 11/13/24 10:10 11/13/24 10:27 Insulin Lispro 100 Unit/Ml 3 Ml Vial SUBCUT 11/13/24 10:11 10 unit ONCE ONE Administration Ondansetron HCl 4 mg 11/13/24 10:04 11/13/24 10:27 Ondansetron Hcl 4 Mg/2 Ml Vial IVPUSH 11/13/24 10:05 4 mg ONCE ONE Administration Medical Decision Making Medical Decision Making MDM Narrative: Patient presented with nausea vomiting and found tachycardic in triage heart rate 151, most likely in DKA will start IV fluids we will check VBG anticipate admission Differential Diagnosis Differential Diagnoses: The differential diagnosis associated with the presentation includes DKA/dehydration Admission/Observation Consideration of admission/observation: Escalation of care including admission/observation considered Consult Healthcare Provider ICU team Lab Data [facility] Lab Attestation statement: I reviewed the patient's lab results. 11/13/24 10:16 11/13/24 12:05 Labs: Lab Results 11/13/24 11/13/24 11/13/24 Range/Units 10:06 10:15 10:16 WBC 11.0 H (4.8-10.8) X10*3/uL RBC 6.19 H D (4.60-5.80) X10*6/uL Hgb 19.4 H D (14.0-18.0) g/dl Hct 52.8 H D (42.0-52.0) % MCV 85.3 (80.0-98.0) fL MCH 31.3 (27.0-33.0) pg MCHC 36.7 H (31.0-36.0) g/dl RDW 11.4 (11.0-16.0) % Plt Count 294 D (160-400) X10*3/uL MPV 8.6 L (9.4-12.4) fL Immature Gran % (Auto) 0.5 H (0.0-0.4) % Neut % (Auto) 84.2 H (45-73) % Lymph % (Auto) 7.6 L (20-40) % [place] % (Auto) 7.6 (2-11) % Eos % (Auto) 0.0 (0-4) % Baso % (Auto) 0.1 (0-2) % Lymph # (Auto) 0.8 L (1.2-4.9) X10*3/uL [place] # (Auto) 0.8 (0.1-1.2) X10*3/uL Eos # (Auto) 0.0 (0.0-0.4) X10*3/uL Baso # (Auto) 0.0 (0.0-0.2) X10*3/uL Abs Immat Gran (auto) 0.05 H (0.00-0.03) X10*3/uL Absolute Neuts (auto) 9.2 H (2.0-8.3) x10*3/uL Absolute Nucleated RBC 0.000 (0.0-0.012) X10*3/uL Nucleated RBC % (auto) 0.0 (0.0-0.2) /100WBC VBG pH (7.32-7.43) VBG pCO2 mmHg VBG pO2 mmHg VBG HCO3 (22-26) mmol/L VBG O2 Saturation % VBG Base Excess mmol/L Sodium 133 L (135-145) mmol/L Potassium 3.4 (3.3-5.1) mmol/L Chloride 89 L (96-108) mmol/L Carbon Dioxide 13 L (22-29) mmol/L Anion Gap 34 H (12-20) BUN 24 H (9-16) mg/dL Creatinine 1.57 H (0.5-1.4) mg/dL Estim Creat Clear Calc 71.7 Estimated GFR 51 POC Glucose 479 H* (60-115) mg/dL Random Glucose 425 H* (60-115) mg/dL Lactic Acid (0.5-2.0) mmol/L Calcium 10.7 H D (8.4-10.2) mg/dL Total Bilirubin 0.6 (0.0-1.0) mg/dL AST 24 (5-37) U/L ALT 25 (0-40) U/L Alkaline Phosphatase 108 (39-117) U/L Total Protein 9.8 H (6.5-8.0) g/dL Albumin 4.8 (3.5-5.0) g/dL Beta-Hydroxybutyrate 9.80 H (0.02-0.27) mmol/L 11/13/24 11/13/24 Range/Units 10:17 10:24 WBC (4.8-10.8) X10*3/uL RBC (4.60-5.80) X10*6/uL Hgb (14.0-18.0) g/dl Hct (42.0-52.0) % MCV (80.0-98.0) fL MCH (27.0-33.0) pg MCHC (31.0-36.0) g/dl RDW (11.0-16.0) % Plt Count (160-400) X10*3/uL MPV (9.4-12.4) fL Immature Gran % (Auto) (0.0-0.4) % Neut % (Auto) (45-73) % Lymph % (Auto) (20-40) % [place] % (Auto) (2-11) % Eos % (Auto) (0-4) % Baso % (Auto) (0-2) % Lymph # (Auto) (1.2-4.9) X10*3/uL [place] # (Auto) (0.1-1.2) X10*3/uL Eos # (Auto) (0.0-0.4) X10*3/uL Baso # (Auto) (0.0-0.2) X10*3/uL Abs Immat Gran (auto) (0.00-0.03) X10*3/uL Absolute Neuts (auto) (2.0-8.3) x10*3/uL Absolute Nucleated RBC (0.0-0.012) X10*3/uL Nucleated RBC % (auto) (0.0-0.2) /100WBC VBG pH 7.46 H (7.32-7.43) VBG pCO2 21 mmHg VBG pO2 32 mmHg VBG HCO3 15 L (22-26) mmol/L VBG O2 Saturation 52.0 % VBG Base Excess -5.0 mmol/L Sodium (135-145) mmol/L Potassium (3.3-5.1) mmol/L Chloride (96-108) mmol/L Carbon Dioxide (22-29) mmol/L Anion Gap (12-20) BUN (9-16) mg/dL Creatinine (0.5-1.4) mg/dL Estim Creat Clear Calc Estimated GFR POC Glucose (60-115) mg/dL Random Glucose (60-115) mg/dL Lactic Acid 2.4 H* (0.5-2.0) mmol/L Calcium (8.4-10.2) mg/dL Total Bilirubin (0.0-1.0) mg/dL AST (5-37) U/L ALT (0-40) U/L Alkaline Phosphatase (39-117) U/L Total Protein (6.5-8.0) g/dL Albumin (3.5-5.0) g/dL Beta-Hydroxybutyrate (0.02-0.27) mmol/L Independent Historian father and brother at bed side External Record Review External record reviewed: Inpatient record Chronic Conditions Patient?s care impacted by: Diabetes Critical Care Time Critical Care Time Critical Care Time: Yes Total Critical Care Time: 60 Attestation: DKA IV insulin drip Discharge Plan Discharge Clinical Impression: DKA (diabetic ketoacidosis) Patient Disposition: Admitted As Inpatient Interventions: Admission Worksheet (ED) Last Done: 11/13/24 12:38 Discharge Date/Time: 11/13/24 12:39
[2024-11-13 10:09] LABS: Glucose, Whole Blood 479 mg/dL (60-115)
--- OUTSIDE RECORDS SUMMARY | 2024-11-13 10:10 | XMS_ITS | Clinical Summary ---
Author Organization [facility] Address [address] [place] [id number] Phone Care Team Providers Care Quarry Plug And Feather Driller Name Role Phone Unavailable Primary Care Provider Unavailabl e Immunizations Immunization Administration Dates Next Due DTP 02/10/1997, 4,1992,08/08,1992 Hep B, ped/adol 1992,1992 Hib (PRP-T) 07/12/1993, 3,1992,06/08 MMR 01/29/1996,07/12/1993 Meningococcal Conj (Menactra) MCV4P 04/17/2006 OPV 02/10/1997, 4,1992,06/08 Td (adult) (MBL), 2 Lf tetan us toxoid, PF, adsorbed 05/03/2004,05/04/2003 Tdap 04/28/2009 Family History Relation Name Status Comments Brother Alive Brother: Alive and well Father Alive Father: Diabete s mellitus Mother Alive Mother: Hyperte nsion Sister 1 Alive Sister: Alive a nd well, Alive and well, Alive and well, Alive and well Sister 2 Alive Sister: Alive a nd well, Alive and well, Alive and well, Alive and well Sister 3 Alive Sister: Alive a nd well, Alive and well, Alive and well, Alive and well Sister 4 Alive Sister: Alive a nd well, Alive and well, Alive and well, Alive and well Social History Tobacco Use Types Packs/Day Years Used Date Smoking Tobacco: Never Assessed Sex and Gender Information Value Date Recorded Sex Assigned at Not on file Legal Sex Male 4:36 PM EDT Gender Identity Not on file Sexual Orientation Not on file Last Filed Vital Signs Vital Sign Reading Time Taken Comments Blood Pressure - - Pulse - - Temperature 36.2 ??C (97.2 ??F) 12/30/2009 12:00 AM E DT Respiratory Rate - - Oxygen Saturation - - Inhaled Oxygen Concentration - - Weight 78 kg (172 lb) 12/30/2009 12:00 AM EDT Height - - Body Mass Index - - Plan of Treatment Health Maintenance Due Date Last Done Comments Hepatitis B Vaccines (3 of 3 - 3-dose series) 01/17/1993 1992, 1992 Varicella Vaccines (1 of 2 - 13+ 2-dose series) 2005 Consider Men B Vaccine (1 of 2 - Bexsero 2-dose series) 2008 DTaP,Tdap,and Td Vaccines (7 - Td or Tdap) 04/28/2019 04/28/2009, 05/03/2004, 05/04/2003, Additional history exists Influenza Vaccines (#1) 2024 COVID-19 Vaccine ( season) 2024 HIB Vaccines Completed 07/12/1993, 11/1992, 1992, Additional history exists MMR Vaccines Completed 01/29/1996, 07/12/1993 IPV Vaccines Completed 02/10/1997, 09/23, 1992, Additional history exists Meningococcal Vaccine Aged Out 04/17/2006 No kenny korina eligible based on patient's age to complete this topic HPV Vaccines Aged Out No longer eligi ble based on patient's age to complete this topic Hepatitis A Vaccines Aged Out No long er eligible based on patient's age to complete this topic Men B Vaccine Aged Out No longer elig ible based on patient's age to complete this topic Pneumococcal Vaccine Aged Out No long er eligible based on patient's age to complete this topic
--- OUTSIDE RECORDS SUMMARY | 2024-11-13 10:10 | XMS_ITS | Encounter Summary ---
Author Organization [facility] Address [address] [place] [address] Phone Care Team Providers Care Final Rail Cutter Name Role Phone Bandar Woodard MD Primary Care Provider [phone] Encounter Details Date Type Department Care Team (Late st Contact Info) Description 05/08/2017 Conversion Encounter [facility] [place] [address] [place] [address] Social History Tobacco Use Types Packs/Day Years Used Date Smoking Tobacco: Never Assessed Sex and Gender Information Value Date Recorded Sex Assigned at Not on file Legal Sex Male 4:36 PM EDT Gender Identity Not on file Sexual Orientation Not on file documented as of this encounter Plan of Treatment Not on file documented as of this encounter Visit Diagnoses Not on filedocumented in this encounter Care Teams Final Rail Cutter Relationship Specialty Start Date End Date Bandar Woodard MD [address] [place] [address] PCP - General 05/02/17 11/21/22 documented as of this encounter
[2024-11-13] MEDS: 0.9 % Sodium Chloride 1,000 ML 999 ML IVCONT ×2 (10:20→10:21)
[2024-11-13 10:24] LABS: MANUAL DIFF FLAG NO
[2024-11-13] MEDS: ondansetron HCL 4 MG/2 ML VIAL IVPUSH ×2 (10:27→23:26)
[2024-11-13] MEDS: Insulin Lispro 100 UNIT/ML 3 ML VIAL 10 UNIT SUBCUT (10:27)
[2024-11-13 10:28] LABS: VBG HCO3 15 mmol/L (22-26); VBG pCO2 21 mmHg; VBG pH 7.46 (7.32-7.43); VBG pO2 32 mmHg
[2024-11-13 10:29] LABS: Venous Blood Gas Refer to POC result
[2024-11-13 10:33] LABS: Basophils Percent Auto 0.1 % (0-2); Hematocrit 52.8 % (42.0-52.0); Hemoglobin 19.4 g/dl (14.0-18.0); Imm Gran Abs Auto 0.05 X10*3/uL (0.00-0.03); Imm Gran Pct Auto 0.5 % (0.0-0.4); Lymphocytes Absolute Auto 0.8 X10*3/uL (1.2-4.9); Lymphocytes Percent Auto 7.6 % (20-40); Mean Corpuscular HGB Conc 36.7 g/dl (31.0-36.0); Mean Corpuscular Hemoglobin 31.3 pg (27.0-33.0); Mean Corpuscular Volume 85.3 fL (80.0-98.0); Mean Platelet Volume 8.6 fL (9.4-12.4); Monocytes Absolute Auto 0.8 X10*3/uL (0.1-1.2); Monocytes Percent Auto 7.6 % (2-11); Neutrophils Absolute Auto 9.2 x10*3/uL (2.0-8.3); Neutrophils Percent Auto 84.2 % (45-73); Platelet Count 294 X10*3/uL (160-400); Red Blood Count 6.19 X10*6/uL (4.60-5.80); Red Cell Distribution Width 11.4 % (11.0-16.0)
[2024-11-13 11:20] LABS: Lactic Acid 2.4 mmol/L (0.5-2.0)
[2024-11-13 11:20] LABS: Albumin Level 4.8 g/dL (3.5-5.0); Anion Gap 34 (12-20); Calcium 10.7 mg/dL (8.4-10.2); Carbon Dioxide 13 mmol/L (22-29); Chloride 89 mmol/L (96-108); Glucose Random 425 mg/dL (60-115); Potassium 3.4 mmol/L (3.3-5.1); Sodium 133 mmol/L (135-145); Total Protein 9.8 g/dL (6.5-8.0)
[2024-11-13 11:21] LABS: Alkaline Phosphatase 108 U/L (39-117)
[2024-11-13 11:23] LABS: Alanine Aminotransferase 25 U/L (0-40); Aspartate Amino Transferase 24 U/L (5-37); Bilirubin Total 0.6 mg/dL (0.0-1.0); Blood Urea Nitrogen 24 mg/dL (9-16); Creatinine Clr Calc Pharmacy 71.7; Estimated Glomerular Filt Rate 51
[2024-11-13 11:39] LABS: Glucose, Whole Blood 308 mg/dL (60-115)
[2024-11-13] MEDS: Insulin Regular/NS 100 UNIT/100 ML PLAST..BAG 8 UNIT IVCONT (11:39)
--- NOTE | 2024-11-13 11:43 | PM.CCHP ---
History of Present Illness Date of Service: 11/13/24 Attending physician on admission: Peggy Hancock Chief Complaint: Nausea/Vomiting Patient is a 34 Y M w/ hypertension, hyperlipidemia, type I diabetes mellitus, presenting initially to emergency department on 11/13 w/ few day history nausea/vomiting, found to have laboratories suggestive of DKA; upon further history-taking, patient reports sick contacts at home, all family members afflicted w/ viral syndrome Review of Systems Review of Systems: Yes all other systems are reviewed and are negative PMFSH Past Medical History Medical History Pure hypercholesterolemia Pneumonia due to COVID-19 virus Vitamin D deficiency HLD (hyperlipidemia) HTN (hypertension) T1DM (type 1 diabetes mellitus) Overweight (BMI 25.0-29.9) Family History Family History Father Diabetes mellitus Hypertension Mother Hypertension Surgical History Surgical History No significant past surgical history Social History Social History Household Members: Family Housing: House Do you presently have visiting nurse or other home services: No Alcohol intake: current Alcohol intake frequency: 3 or more drinks per day Patient Tobacco Use Status: Never used Tobacco Smoked in Last 30 Days: No e-Cigarette/Vaping Use: Never Used Use of substances other than those prescribed or required for medical reasons: Yes Substance Use Type: Marijuana Substance Use Frequency: Chronic Longstanding Advance Directives: No Advance Directives Information Provided: No Do you have a plan to hurt others: No Plan service: No Current occupational status: employed Cognitive needs: No Hearing needs: No Vision needs: No Meds Allergies Allergy/AdvReac Type Severity Reaction Status Date / Time No Known Allergies Allergy Verified 11/13/24 09:54 [No Known Allergies*] Active Medications: Current Medications Dextrose (Dextrose 50 % 25 Gm/50 Ml Syringe) 25 gm IVPUSH Q30M PRN PRN Reason: BG < 70 Heparin Sodium (Porcine) (Heparin Sodium,Porcine 5,000 Unit/Ml Vial) 5,000 unit SUBCUT Q8H SMILEY Insulin Human Regular (Myxredlin) 100 unit in 100 mls @ 8 mls/hr IVCONT .[id number] SMILEY; Protocol Potassium Chloride (Potassium Chloride/H20) 10 meq in 100 mls @ 100 mls/hr IV Q1H SMILEY Stop: 11/13/24 15:44 Lactated Ringer's (Lr) 1,000 mls @ 999 mls/hr IV .Q1H1M SMILEY Stop: 11/13/24 12:45 Ondansetron HCl (Ondansetron Hcl 4 Mg/2 Ml Vial) 4 mg IVPUSH Q8H PRN PRN Reason: Nausea and Vomiting Home Medications ?Medication ?Instructions ?Recorded ?Confirmed ?Last Taken ?Type insulin glargine 100 unit/mL (3 20 unit subcut BEDTIME 11/13/24 11/13/24 Unknown History mL) subcutaneous pen (Lantus Solostar U-100 Insulin) insulin lispro 100 unit/mL 1 sliding scale dose subcut TIDAC 11/13/24 11/13/24 11/13/24 09:00 History subcutaneous pen (Admelog SoloStar U-100 Insulin lispro) Physical Exam Vital Signs: Vital Signs: Last Vital Signs Temp 98.4 F 11/13/24 10:02 Pulse 142 H 11/13/24 10:02 Resp 18 11/13/24 10:02 BP 168/109 H 11/13/24 10:02 Pulse Ox 100 11/13/24 10:02 O2 Del Method Room Air 11/13/24 10:02 BMI result Body Mass Index 22.5 Const: General: cooperative, healthy appearing, comfortable, no acute distress, well developed, alert, awake and Physically active Orientation/consciousness: patient oriented x3 HEENT: Head: Yes normal to inspection, Yes normocephalic and Yes atraumatic Eyes: General: appearance normal, both eyes and all related structures Neck: Neck: Yes normal visual inspection, Yes full ROM, Yes no meningeal signs, Yes trachea midline and Yes supple Chest: Chest palpation & inspection: normal inspection of the chest Resp: Other: no appreciable rales, rhonchi, wheezing Effort & Inspection: normal respiratory effort Cardio: Rate: tachycardic Rhythm: regular rhythm GI: Inspection: Yes normal to inspection, No Abdominal wall edema and No distended Palpation (GI): Soft to palpation, not firm, nontender, no guarding and not rigid Skin: General skin exam: no rashes or lesions noted Neuro: General: patient oriented x3, tone normal, moves all extremities, no meningeal signs and no focal motor deficits Extrem: General: Yes normal to inspection, Yes full ROM, Yes capillary refill normal and Yes no clubbing, cyanosis or edema Psych: Appearance: grossly normal Results Labs 11/13/24 10:16 11/13/24 12:05 Labs: Laboratory Results - last 24 hr 11/13/24 11/13/24 11/13/24 10:06 10:15 10:16 MCV 85.3 MCH 31.3 MCHC 36.7 H RDW 11.4 Plt Count 294 D MPV 8.6 L Immature Gran % (Auto) 0.5 H Neut % (Auto) 84.2 H Lymph % (Auto) 7.6 L [place] % (Auto) 7.6 Eos % (Auto) 0.0 Baso % (Auto) 0.1 Lymph # (Auto) 0.8 L [place] # (Auto) 0.8 Eos # (Auto) 0.0 Baso # (Auto) 0.0 Abs Immat Gran (auto) 0.05 H Absolute Neuts (auto) 9.2 H Absolute Nucleated RBC 0.000 Nucleated RBC % (auto) 0.0 VBG pH VBG pCO2 VBG pO2 VBG HCO3 VBG O2 Saturation VBG Base Excess Anion Gap 34 H Estim Creat Clear Calc 71.7 Estimated GFR 51 POC Glucose 479 H* Random Glucose 425 H* Lactic Acid Calcium 10.7 H D Total Bilirubin 0.6 AST 24 ALT 25 Alkaline Phosphatase 108 Total Protein 9.8 H Albumin 4.8 Beta-Hydroxybutyrate 9.80 H 11/13/24 11/13/24 11/13/24 10:17 10:24 11:36 MCV MCH MCHC RDW Plt Count MPV Immature Gran % (Auto) Neut % (Auto) Lymph % (Auto) [place] % (Auto) Eos % (Auto) Baso % (Auto) Lymph # (Auto) [place] # (Auto) Eos # (Auto) Baso # (Auto) Abs Immat Gran (auto) Absolute Neuts (auto) Absolute Nucleated RBC Nucleated RBC % (auto) VBG pH 7.46 H VBG pCO2 21 VBG pO2 32 VBG HCO3 15 L VBG O2 Saturation 52.0 VBG Base Excess -5.0 Anion Gap Estim Creat Clear Calc Estimated GFR POC Glucose 308 H Random Glucose Lactic Acid 2.4 H* Calcium Total Bilirubin AST ALT Alkaline Phosphatase Total Protein Albumin Beta-Hydroxybutyrate Assessment and Plan (1) DKA (diabetic ketoacidosis): Status: Acute Plan Patient is a 34 Y M w/ hypertension, hyperlipidemia, type I diabetes mellitus, presenting initially to emergency department on 11/13 w/ few day history nausea/vomiting, found to have laboratories suggestive of DKA N: no acute issues CV: no acute issues; hypertension R: no acute issues GI: NPO while on DKA protocol, otherwise advance to diabetic diet : acute renal insufficiency, likely pre-renal; to closely monitor renal indices, electrolytes in particular potassium H: likely hemoconcentration; chemical DVT prophylaxis w/ heparin SQ ID: no overt stigmata of infection; to closely monitor E: type I diabetes mellitus, c/b DKA, on DKA protocol P: no acute issues
[2024-11-13] MEDS: Lactated Ringers 1,000 ML 999 ML IV ×2 (11:46→13:16)
[2024-11-13] MEDS: Potassium Chloride/H20 10 MEQ/100 ML PIGGYBACK 100 MEQ IV ×4 (11:52→15:04)
[2024-11-13] MEDS: Heparin Sodium,Porcine 5,000 UNIT/ML VIAL 5000 UNIT SUBCUT ×2 (11:54→20:39)
[2024-11-13 12:27] LABS: Glucose, Whole Blood 265 mg/dL (60-115)
[2024-11-13 12:28] LABS: Reflex Lactate? Lactic Acid Added
--- NOTE | 2024-11-13 12:34 | PHA.MEDREC ---
Pharmacy Consult ? Medication Reconciliation Pharmacy has completed the medication reconciliation. Spoke to pt to confirm meds.
--- NOTE | 2024-11-13 12:37 | PC.NURSE ---
Report given to ICU, this RN and tech transported patient to ICU.
[2024-11-13 12:38] LABS: Anion Gap 24 (12-20); Blood Urea Nitrogen 21 mg/dL (9-16); Calcium 8.9 mg/dL (8.4-10.2); Carbon Dioxide 16 mmol/L (22-29); Chloride 99 mmol/L (96-108); Creatinine Clr Calc Pharmacy 97.9; Estimated Glomerular Filt Rate > 60; Glucose Random 287 mg/dL (60-115); Magnesium 1.7 mg/dL (1.6-2.6); Phosphorus 1.3 mg/dL (2.7-4.5); Potassium 3.4 mmol/L (3.3-5.1); Sodium 136 mmol/L (135-145)
[2024-11-13 12:52] LABS: Glucose, Whole Blood 221 mg/dL (60-115)
[2024-11-13 13:04] LABS: Influenza A PCR NEGATIVE (Negative); Influenza B PCR NEGATIVE (Negative); Resp Syncy Virus RNA Qual PCR NEGATIVE (Negative); SARS COV2 PCR INHOUSE NEGATIVE (Negative)
[2024-11-13] MEDS: Potassium Phosphate/NS 15 MMOL/250 ML PLAST..BAG 62.5 MMOL IV ×2 (13:07→17:55)
[2024-11-13 13:13] LABS: ~Lactic Acid-LAB USE ONLY 1.9 mmol/L (0.5-2.0)
[2024-11-13] MEDS: Dextrose 5 % and Lactated Ring 1,000 ML 100 ML IVCONT ×2 (13:14→23:31)
[2024-11-13] MEDS: Magnesium Sulfate/D5W 1 GM/100 ML PIGGYBACK IV ×2 (13:16→17:55)
[2024-11-13 14:15] LABS: Glucose, Whole Blood 182 mg/dL (60-115)
--- NOTE | 2024-11-13 15:05 | PC.NURSE ---
informed md of pt's POC and insulin drip rate around 1330. per md ok to follow DKA protocol but will inform MD of pt's POc and insulin rate if protocol dictates and if pt sugar drastically increases or decreases. informed md of pt's elevated HR and pt stated he hasnt voided since admission while md assessing pt at bedside
[2024-11-13 15:14] LABS: Glucose, Whole Blood 173 mg/dL (60-115)
[2024-11-13 16:05] LABS: Glucose, Whole Blood 195 mg/dL (60-115)
[2024-11-13 17:02] LABS: Glucose, Whole Blood 174 mg/dL (60-115)
[2024-11-13 17:13] LABS: Anion Gap 18 (12-20); Blood Urea Nitrogen 15 mg/dL (9-16); Calcium 8.3 mg/dL (8.4-10.2); Carbon Dioxide 19 mmol/L (22-29); Chloride 103 mmol/L (96-108); Creatinine Clr Calc Pharmacy 122.4; Estimated Glomerular Filt Rate > 60; Glucose Random 194 mg/dL (60-115); Magnesium 1.8 mg/dL (1.6-2.6); Phosphorus 2.3 mg/dL (2.7-4.5); Potassium 3.3 mmol/L (3.3-5.1); Sodium 137 mmol/L (135-145)
[2024-11-13] MEDS: Calcium Chloride 1 GM/10 ML SYRINGE IVPUSH (17:55)
[2024-11-13 17:59] LABS: Glucose, Whole Blood 157 mg/dL (60-115)
[2024-11-13 19:01] LABS: Glucose, Whole Blood 174 mg/dL (60-115)
[2024-11-13 20:04] LABS: Glucose, Whole Blood 119 mg/dL (60-115)
[2024-11-13 20:22] LABS: Anion Gap 13 (12-20); Blood Urea Nitrogen 12 mg/dL (9-16); Calcium 9.2 mg/dL (8.4-10.2); Carbon Dioxide 22 mmol/L (22-29); Chloride 106 mmol/L (96-108); Creatinine Clr Calc Pharmacy 132.5; Estimated Glomerular Filt Rate > 60; Glucose Random 120 mg/dL (60-115); Phosphorus 2.7 mg/dL (2.7-4.5); Potassium 3.2 mmol/L (3.3-5.1); Sodium 138 mmol/L (135-145)
[2024-11-13] MEDS: Potassium Chloride Packet 20 MEQ PACKET 40 MEQ PO (20:40)
[2024-11-13 21:05] LABS: Glucose, Whole Blood 100 mg/dL (60-115)
[2024-11-13 21:58] LABS: Glucose, Whole Blood 123 mg/dL (60-115)
[2024-11-13 23:00] LABS: Glucose, Whole Blood 114 mg/dL (60-115)
[2024-11-14] VITALS (13 sets, daily range): BP systolic 133–167; BP diastolic 84–108; PULSE 92–122; RESP 13–24; TEMP 36.4–37.3; O2SAT 97–99; BMI 22.5
[2024-11-14 00:10] LABS: Glucose, Whole Blood 131 mg/dL (60-115)
[2024-11-14 01:09] LABS: Glucose, Whole Blood 148 mg/dL (60-115)
[2024-11-14 01:25] LABS: Anion Gap 17 (12-20); Blood Urea Nitrogen 9 mg/dL (9-16); Calcium 8.6 mg/dL (8.4-10.2); Carbon Dioxide 21 mmol/L (22-29); Chloride 105 mmol/L (96-108); Creatinine Clr Calc Pharmacy 126.5; Estimated Glomerular Filt Rate > 60; Glucose Random 148 mg/dL (60-115); Magnesium 1.8 mg/dL (1.6-2.6); Phosphorus 2.5 mg/dL (2.7-4.5); Potassium 3.6 mmol/L (3.3-5.1); Sodium 139 mmol/L (135-145)
[2024-11-14 02:09] LABS: Glucose, Whole Blood 185 mg/dL (60-115)
[2024-11-14 03:09] LABS: Glucose, Whole Blood 179 mg/dL (60-115)
[2024-11-14 04:03] LABS: Glucose, Whole Blood 183 mg/dL (60-115)
[2024-11-14] MEDS: Heparin Sodium,Porcine 5,000 UNIT/ML VIAL 5000 UNIT SUBCUT ×3 (04:33→20:22)
[2024-11-14 04:57] LABS: MANUAL DIFF FLAG NO
[2024-11-14 05:01] LABS: Basophils Percent Auto 0.1 % (0-2); Eosinophils Percent Auto 0.1 % (0-4); Hematocrit 38.2 % (42.0-52.0); Hemoglobin 13.9 g/dl (14.0-18.0); Imm Gran Abs Auto 0.03 X10*3/uL (0.00-0.03); Imm Gran Pct Auto 0.3 % (0.0-0.4); Lymphocytes Absolute Auto 1.1 X10*3/uL (1.2-4.9); Lymphocytes Percent Auto 12.3 % (20-40); Mean Corpuscular HGB Conc 36.4 g/dl (31.0-36.0); Mean Corpuscular Hemoglobin 31.4 pg (27.0-33.0); Mean Corpuscular Volume 86.4 fL (80.0-98.0); Mean Platelet Volume 8.6 fL (9.4-12.4); Monocytes Absolute Auto 0.9 X10*3/uL (0.1-1.2); Monocytes Percent Auto 10.1 % (2-11); Neutrophils Absolute Auto 6.7 x10*3/uL (2.0-8.3); Neutrophils Percent Auto 77.1 % (45-73); Platelet Count 208 X10*3/uL (160-400); Red Blood Count 4.42 X10*6/uL (4.60-5.80); Red Cell Distribution Width 11.3 % (11.0-16.0); White Blood Count 8.7 X10*3/uL (4.8-10.8)
[2024-11-14] MEDS: Insulin Regular/NS 100 UNIT/100 ML PLAST..BAG IVCONT (05:02)
[2024-11-14 05:07] LABS: Glucose, Whole Blood 172 mg/dL (60-115)
[2024-11-14 05:24] LABS: Anion Gap 12 (12-20); Blood Urea Nitrogen 11 mg/dL (9-16); Calcium 8.5 mg/dL (8.4-10.2); Carbon Dioxide 22 mmol/L (22-29); Chloride 106 mmol/L (96-108); Creatinine Clr Calc Pharmacy 146.2; Estimated Glomerular Filt Rate > 60; Glucose Random 195 mg/dL (60-115); Magnesium 1.7 mg/dL (1.6-2.6); Phosphorus 1.8 mg/dL (2.7-4.5); Potassium 3.4 mmol/L (3.3-5.1); Sodium 137 mmol/L (135-145)
[2024-11-14 06:05] LABS: Glucose, Whole Blood 169 mg/dL (60-115)
[2024-11-14] MEDS: Potassium Phosphate/NS 15 MMOL/250 ML PLAST..BAG 62.5 MMOL IV ×2 (06:15→09:53)
[2024-11-14 07:01] LABS: Glucose, Whole Blood 185 mg/dL (60-115)
--- NOTE | 2024-11-14 07:22 | PM.CCPN ---
Subjective Subjective Date of Service: 11/14/24 Interval History: no significant ovenright events; interval improvement DKA Critical Care Time (minutes): 0 Physical Exam Vital Signs: Vital Signs: Last Vital Signs Temp 98.1 F 11/14/24 04:00 Pulse 99 11/14/24 06:00 Resp 16 11/14/24 06:00 BP 133/88 11/14/24 06:00 Pulse Ox 98 11/14/24 06:00 O2 Del Method Room Air 11/14/24 06:00 BMI result Body Mass Index 22.5 Const: General: cooperative, healthy appearing, comfortable, no acute distress, well developed, alert and awake Orientation/consciousness: patient oriented x3 HEENT: Head: Yes normal to inspection, Yes normocephalic and Yes atraumatic Eyes: General: appearance normal, both eyes and all related structures Neck: Neck: Yes normal visual inspection, Yes full ROM, Yes no meningeal signs, Yes trachea midline and Yes supple Chest: Chest palpation & inspection: normal inspection of the chest Resp: Other: no appreciable rales, rhonchi, wheezing Effort & Inspection: normal respiratory effort Cardio: Rate: regular rate Rhythm: regular rhythm GI: Inspection: Yes normal to inspection, No Abdominal wall edema and No distended Palpation (GI): Soft to palpation, not firm, nontender, no guarding and not rigid Skin: General skin exam: no rashes or lesions noted Neuro: General: patient oriented x3, tone normal, moves all extremities, no meningeal signs and no focal motor deficits Extrem: General: Yes normal to inspection, Yes full ROM, Yes capillary refill normal and Yes no clubbing, cyanosis or edema Psych: Appearance: grossly normal Objective Data Labs 11/14/24 04:25 11/14/24 04:25 Labs: Laboratory Results - last 24 hr 11/13/24 11/13/24 11/13/24 10:06 10:15 10:16 WBC 11.0 H RBC 6.19 H D Hgb 19.4 H D Hct 52.8 H D MCV 85.3 MCH 31.3 MCHC 36.7 H RDW 11.4 Plt Count 294 D MPV 8.6 L Immature Gran % (Auto) 0.5 H Neut % (Auto) 84.2 H Lymph % (Auto) 7.6 L [place] % (Auto) 7.6 Eos % (Auto) 0.0 Baso % (Auto) 0.1 Lymph # (Auto) 0.8 L [place] # (Auto) 0.8 Eos # (Auto) 0.0 Baso # (Auto) 0.0 Abs Immat Gran (auto) 0.05 H Absolute Neuts (auto) 9.2 H Absolute Nucleated RBC 0.000 Nucleated RBC % (auto) 0.0 Hold Purple Top VBG pH VBG pCO2 VBG pO2 VBG HCO3 VBG O2 Saturation VBG Base Excess Sodium 133 L Potassium 3.4 Chloride 89 L Carbon Dioxide 13 L Anion Gap 34 H BUN 24 H Creatinine 1.57 H Estim Creat Clear Calc 71.7 Estimated GFR 51 POC Glucose 479 H* Random Glucose 425 H* Lactic Acid Lactic Acid F/U @ 2Hr Calcium 10.7 H D Phosphorus Magnesium Total Bilirubin 0.6 AST 24 ALT 25 Alkaline Phosphatase 108 Total Protein 9.8 H Albumin 4.8 Beta-Hydroxybutyrate 9.80 H Influenza Type A (PCR) Influenza Type B (PCR) RSV RNA Qual (PCR) SARS-CoV-2 RNA (RT-PCR) 11/13/24 11/13/24 11/13/24 10:17 10:24 11:36 WBC RBC Hgb Hct MCV MCH MCHC RDW Plt Count MPV Immature Gran % (Auto) Neut % (Auto) Lymph % (Auto) [place] % (Auto) Eos % (Auto) Baso % (Auto) Lymph # (Auto) [place] # (Auto) Eos # (Auto) Baso # (Auto) Abs Immat Gran (auto) Absolute Neuts (auto) Absolute Nucleated RBC Nucleated RBC % (auto) Hold Purple Top VBG pH 7.46 H VBG pCO2 21 VBG pO2 32 VBG HCO3 15 L VBG O2 Saturation 52.0 VBG Base Excess -5.0 Sodium Potassium Chloride Carbon Dioxide Anion Gap BUN Creatinine Estim Creat Clear Calc Estimated GFR POC Glucose 308 H Random Glucose Lactic Acid 2.4 H* Lactic Acid F/U @ 2Hr Calcium Phosphorus Magnesium Total Bilirubin AST ALT Alkaline Phosphatase Total Protein Albumin Beta-Hydroxybutyrate Influenza Type A (PCR) Influenza Type B (PCR) RSV RNA Qual (PCR) SARS-CoV-2 RNA (RT-PCR) 11/13/24 11/13/24 11/13/24 12:05 12:20 12:24 WBC RBC Hgb Hct MCV MCH MCHC RDW Plt Count MPV Immature Gran % (Auto) Neut % (Auto) Lymph % (Auto) [place] % (Auto) Eos % (Auto) Baso % (Auto) Lymph # (Auto) [place] # (Auto) Eos # (Auto) Baso # (Auto) Abs Immat Gran (auto) Absolute Neuts (auto) Absolute Nucleated RBC Nucleated RBC % (auto) Hold Purple Top VBG pH VBG pCO2 VBG pO2 VBG HCO3 VBG O2 Saturation VBG Base Excess Sodium 136 Potassium 3.4 Chloride 99 Carbon Dioxide 16 L Anion Gap 24 H BUN 21 H Creatinine 1.15 Estim Creat Clear Calc 97.9 Estimated GFR > 60 POC Glucose 265 H Random Glucose 287 H Lactic Acid Lactic Acid F/U @ 2Hr Calcium 8.9 D Phosphorus 1.3 L Magnesium 1.7 Total Bilirubin AST ALT Alkaline Phosphatase Total Protein Albumin Beta-Hydroxybutyrate Influenza Type A (PCR) NEGATIVE Influenza Type B (PCR) NEGATIVE RSV RNA Qual (PCR) NEGATIVE SARS-CoV-2 RNA (RT-PCR) NEGATIVE 11/13/24 11/13/24 11/13/24 12:47 12:48 14:11 WBC RBC Hgb Hct MCV MCH MCHC RDW Plt Count MPV Immature Gran % (Auto) Neut % (Auto) Lymph % (Auto) [place] % (Auto) Eos % (Auto) Baso % (Auto) Lymph # (Auto) [place] # (Auto) Eos # (Auto) Baso # (Auto) Abs Immat Gran (auto) Absolute Neuts (auto) Absolute Nucleated RBC Nucleated RBC % (auto) Hold Purple Top VBG pH VBG pCO2 VBG pO2 VBG HCO3 VBG O2 Saturation VBG Base Excess Sodium Potassium Chloride Carbon Dioxide Anion Gap BUN Creatinine Estim Creat Clear Calc Estimated GFR POC Glucose 221 H 182 H Random Glucose Lactic Acid Lactic Acid F/U @ 2Hr 1.9 Calcium Phosphorus Magnesium Total Bilirubin AST ALT Alkaline Phosphatase Total Protein Albumin Beta-Hydroxybutyrate Influenza Type A (PCR) Influenza Type B (PCR) RSV RNA Qual (PCR) SARS-CoV-2 RNA (RT-PCR) 11/13/24 11/13/24 11/13/24 15:10 16:00 16:02 WBC RBC Hgb Hct MCV MCH MCHC RDW Plt Count MPV Immature Gran % (Auto) Neut % (Auto) Lymph % (Auto) [place] % (Auto) Eos % (Auto) Baso % (Auto) Lymph # (Auto) [place] # (Auto) Eos # (Auto) Baso # (Auto) Abs Immat Gran (auto) Absolute Neuts (auto) Absolute Nucleated RBC Nucleated RBC % (auto) Hold Purple Top VBG pH VBG pCO2 VBG pO2 VBG HCO3 VBG O2 Saturation VBG Base Excess Sodium 137 Potassium 3.3 Chloride 103 Carbon Dioxide 19 L Anion Gap 18 BUN 15 Creatinine 0.92 Estim Creat Clear Calc 122.4 Estimated GFR > 60 POC Glucose 173 H 195 H Random Glucose 194 H Lactic Acid Lactic Acid F/U @ 2Hr Calcium 8.3 L D Phosphorus 2.3 L Magnesium 1.8 Total Bilirubin AST ALT Alkaline Phosphatase Total Protein Albumin Beta-Hydroxybutyrate Influenza Type A (PCR) Influenza Type B (PCR) RSV RNA Qual (PCR) SARS-CoV-2 RNA (RT-PCR) 11/13/24 11/13/24 11/13/24 16:58 17:56 18:56 WBC RBC Hgb Hct MCV MCH MCHC RDW Plt Count MPV Immature Gran % (Auto) Neut % (Auto) Lymph % (Auto) [place] % (Auto) Eos % (Auto) Baso % (Auto) Lymph # (Auto) [place] # (Auto) Eos # (Auto) Baso # (Auto) Abs Immat Gran (auto) Absolute Neuts (auto) Absolute Nucleated RBC Nucleated RBC % (auto) Hold Purple Top VBG pH VBG pCO2 VBG pO2 VBG HCO3 VBG O2 Saturation VBG Base Excess Sodium Potassium Chloride Carbon Dioxide Anion Gap BUN Creatinine Estim Creat Clear Calc Estimated GFR POC Glucose 174 H 157 H 174 H Random Glucose Lactic Acid Lactic Acid F/U @ 2Hr Calcium Phosphorus Magnesium Total Bilirubin AST ALT Alkaline Phosphatase Total Protein Albumin Beta-Hydroxybutyrate Influenza Type A (PCR) Influenza Type B (PCR) RSV RNA Qual (PCR) SARS-CoV-2 RNA (RT-PCR) 11/13/24 11/13/24 11/13/24 19:55 20:01 21:01 WBC RBC Hgb Hct MCV MCH MCHC RDW Plt Count MPV Immature Gran % (Auto) Neut % (Auto) Lymph % (Auto) [place] % (Auto) Eos % (Auto) Baso % (Auto) Lymph # (Auto) [place] # (Auto) Eos # (Auto) Baso # (Auto) Abs Immat Gran (auto) Absolute Neuts (auto) Absolute Nucleated RBC Nucleated RBC % (auto) Hold Purple Top VBG pH VBG pCO2 VBG pO2 VBG HCO3 VBG O2 Saturation VBG Base Excess Sodium 138 Potassium 3.2 L Chloride 106 Carbon Dioxide 22 Anion Gap 13 BUN 12 Creatinine 0.85 Estim Creat Clear Calc 132.5 Estimated GFR > 60 POC Glucose 119 H 100 Random Glucose 120 H Lactic Acid Lactic Acid F/U @ 2Hr Calcium 9.2 D Phosphorus 2.7 Magnesium 2.0 Total Bilirubin AST ALT Alkaline Phosphatase Total Protein Albumin Beta-Hydroxybutyrate Influenza Type A (PCR) Influenza Type B (PCR) RSV RNA Qual (PCR) SARS-CoV-2 RNA (RT-PCR) 11/13/24 11/13/24 11/14/24 21:54 22:57 00:07 WBC RBC Hgb Hct MCV MCH MCHC RDW Plt Count MPV Immature Gran % (Auto) Neut % (Auto) Lymph % (Auto) [place] % (Auto) Eos % (Auto) Baso % (Auto) Lymph # (Auto) [place] # (Auto) Eos # (Auto) Baso # (Auto) Abs Immat Gran (auto) Absolute Neuts (auto) Absolute Nucleated RBC Nucleated RBC % (auto) Hold Purple Top VBG pH VBG pCO2 VBG pO2 VBG HCO3 VBG O2 Saturation VBG Base Excess Sodium Potassium Chloride Carbon Dioxide Anion Gap BUN Creatinine Estim Creat Clear Calc Estimated GFR POC Glucose 123 H 114 131 H Random Glucose Lactic Acid Lactic Acid F/U @ 2Hr Calcium Phosphorus Magnesium Total Bilirubin AST ALT Alkaline Phosphatase Total Protein Albumin Beta-Hydroxybutyrate Influenza Type A (PCR) Influenza Type B (PCR) RSV RNA Qual (PCR) SARS-CoV-2 RNA (RT-PCR) 11/14/24 11/14/24 11/14/24 00:40 01:05 02:05 WBC RBC Hgb Hct MCV MCH MCHC RDW Plt Count MPV Immature Gran % (Auto) Neut % (Auto) Lymph % (Auto) [place] % (Auto) Eos % (Auto) Baso % (Auto) Lymph # (Auto) [place] # (Auto) Eos # (Auto) Baso # (Auto) Abs Immat Gran (auto) Absolute Neuts (auto) Absolute Nucleated RBC Nucleated RBC % (auto) Hold Purple Top SEE NOTE VBG pH VBG pCO2 VBG pO2 VBG HCO3 VBG O2 Saturation VBG Base Excess Sodium 139 Potassium 3.6 Chloride 105 Carbon Dioxide 21 L Anion Gap 17 BUN 9 Creatinine 0.89 Estim Creat Clear Calc 126.5 Estimated GFR > 60 POC Glucose 148 H 185 H Random Glucose 148 H Lactic Acid Lactic Acid F/U @ 2Hr Calcium 8.6 D Phosphorus 2.5 L Magnesium 1.8 Total Bilirubin AST ALT Alkaline Phosphatase Total Protein Albumin Beta-Hydroxybutyrate Influenza Type A (PCR) Influenza Type B (PCR) RSV RNA Qual (PCR) SARS-CoV-2 RNA (RT-PCR) 11/14/24 11/14/24 11/14/24 03:05 03:59 04:25 WBC 8.7 RBC 4.42 L D Hgb 13.9 L D Hct 38.2 L D MCV 86.4 MCH 31.4 MCHC 36.4 H RDW 11.3 Plt Count 208 D MPV 8.6 L Immature Gran % (Auto) 0.3 Neut % (Auto) 77.1 H Lymph % (Auto) 12.3 L [place] % (Auto) 10.1 Eos % (Auto) 0.1 Baso % (Auto) 0.1 Lymph # (Auto) 1.1 L [place] # (Auto) 0.9 Eos # (Auto) 0.0 Baso # (Auto) 0.0 Abs Immat Gran (auto) 0.03 Absolute Neuts (auto) 6.7 Absolute Nucleated RBC 0.000 Nucleated RBC % (auto) 0.0 Hold Purple Top VBG pH VBG pCO2 VBG pO2 VBG HCO3 VBG O2 Saturation VBG Base Excess Sodium 137 Potassium 3.4 Chloride 106 Carbon Dioxide 22 Anion Gap 12 BUN 11 Creatinine 0.77 Estim Creat Clear Calc 146.2 Estimated GFR > 60 POC Glucose 179 H 183 H Random Glucose 195 H Lactic Acid Lactic Acid F/U @ 2Hr Calcium 8.5 Phosphorus 1.8 L Magnesium 1.7 Total Bilirubin AST ALT Alkaline Phosphatase Total Protein Albumin Beta-Hydroxybutyrate Influenza Type A (PCR) Influenza Type B (PCR) RSV RNA Qual (PCR) SARS-CoV-2 RNA (RT-PCR) 11/14/24 11/14/24 11/14/24 05:03 06:01 06:58 WBC RBC Hgb Hct MCV MCH MCHC RDW Plt Count MPV Immature Gran % (Auto) Neut % (Auto) Lymph % (Auto) [place] % (Auto) Eos % (Auto) Baso % (Auto) Lymph # (Auto) [place] # (Auto) Eos # (Auto) Baso # (Auto) Abs Immat Gran (auto) Absolute Neuts (auto) Absolute Nucleated RBC Nucleated RBC % (auto) Hold Purple Top VBG pH VBG pCO2 VBG pO2 VBG HCO3 VBG O2 Saturation VBG Base Excess Sodium Potassium Chloride Carbon Dioxide Anion Gap BUN Creatinine Estim Creat Clear Calc Estimated GFR POC Glucose 172 H 169 H 185 H Random Glucose Lactic Acid Lactic Acid F/U @ 2Hr Calcium Phosphorus Magnesium Total Bilirubin AST ALT Alkaline Phosphatase Total Protein Albumin Beta-Hydroxybutyrate Influenza Type A (PCR) Influenza Type B (PCR) RSV RNA Qual (PCR) SARS-CoV-2 RNA (RT-PCR) Progress Note: A&P Assessment and plan (1) DKA (diabetic ketoacidosis): Status: Acute Plan Patient is a 34 Y M w/ hypertension, hyperlipidemia, type I diabetes mellitus, presenting initially to emergency department on 11/13 w/ few day history nausea/vomiting, found to have laboratories suggestive of DKA N: no acute issues CV: no acute issues; hypertension on home lisinopril R: no acute issues GI: diabetic diet : acute renal insufficiency, likely pre-renal, resolved; to closely monitor renal indices, electrolytes in particular potassium H: hemoconcentration, resolved; chemical DVT prophylaxis w/ heparin SQ ID: reported history of sick contacts, likely viral; to closely monitor E: type I diabetes mellitus, c/b DKA, resolved P: no acute issues Quality Stroke Does the patient have a stroke diagnosis?: No VTE Prior VTE?: No VTE Risk Level:: Medical - moderate - high VTE Device Contraindication: N/A - Device Ordered VTE Drug Contraindication: N/A - Med Ordered
[2024-11-14] MEDS: Insulin Lispro 100 UNIT/ML 3 ML VIAL SUBCUT ×4 (07:45→20:22)
[2024-11-14] MEDS: Insulin Glargine,Hum.rec.anlog 100 UNIT/ML 10 ML VIAL 30 UNIT SUBCUT (07:46)
[2024-11-14] MEDS: Magnesium Sulfate/D5W 1 GM/100 ML PIGGYBACK IV (07:49)
[2024-11-14 08:07] LABS: Glucose, Whole Blood 201 mg/dL (60-115)
[2024-11-14] MEDS: ondansetron HCL 4 MG/2 ML VIAL IVPUSH ×2 (08:25→16:35)
[2024-11-14 08:43] LABS: Anion Gap 14 (12-20); Blood Urea Nitrogen 8 mg/dL (9-16); Calcium 8.4 mg/dL (8.4-10.2); Carbon Dioxide 23 mmol/L (22-29); Chloride 106 mmol/L (96-108); Creatinine Clr Calc Pharmacy 137.3; Estimated Glomerular Filt Rate > 60; Glucose Random 191 mg/dL (60-115); Magnesium 1.8 mg/dL (1.6-2.6); Phosphorus 2.2 mg/dL (2.7-4.5); Potassium 3.6 mmol/L (3.3-5.1); Sodium 139 mmol/L (135-145)
[2024-11-14] MEDS: lisinopriL 5 MG TABLET PO (08:44)
[2024-11-14] MEDS: 0.9 % Sodium Chloride Flush 3 ML SYRINGE IVFLUSH ×2 (10:49→20:23)
[2024-11-14 11:04] LABS: Glucose, Whole Blood 192 mg/dL (60-115)
--- NOTE | 2024-11-14 11:26 | MHC.CM.PN ---
CM MET WITH PT AT BEDSIDE. PT LIVES WITH FAMILY AND IS FUNCTIONALLY INDEPENDENT. PT IS EMPLOYED F/T. PT GETS DM SUPPLIES FROM [facility]. DECLINES TO COMPLETE A HCP AT THIS TIME, PT INSTRUCTED TO ALERT CM IF CHANGES HIS MIND. PCP DR. SILVER AT [facility] – [place]. DP: HOME, NO SERVICES IS ANTICIPATED. PT HAS OWN RIDE HOME. CM WILL CONTINUE TO FOLLOW FOR ANY CHANGE TO DC PLAN/NEEDS.
[2024-11-14 11:56] LABS: Appearance Urine Cloudy; Color Urine Yellow; Glucose Urine UA 500 mg/dL (Negative); Leukocyte Esterase Urine Negative (Negative); Nitrite Urine Negative (Negative); PH 6.5 (5.0-9.0); Specific Gravity - Urine 1.025 (1.005-1.025); Urine Blood Negative (Negative); Urine Ketones 40 mg/dL (Negative); Urine Protein Trace mg/dL (Neg-Trace)
[2024-11-14 12:23] LABS: Anion Gap 16 (12-20); Blood Urea Nitrogen 6 mg/dL (9-16); Calcium 8.3 mg/dL (8.4-10.2); Carbon Dioxide 22 mmol/L (22-29); Chloride 105 mmol/L (96-108); Creatinine Clr Calc Pharmacy 146.2; Estimated Glomerular Filt Rate > 60; Glucose Random 206 mg/dL (60-115); Magnesium 1.8 mg/dL (1.6-2.6); Phosphorus 2.5 mg/dL (2.7-4.5); Potassium 3.6 mmol/L (3.3-5.1); Sodium 139 mmol/L (135-145)
--- NOTE | 2024-11-14 14:10 | PM.EVENT ---
Event Note Date of Service: 11/15/24 Event Note: 34 y/O m with a past medical history of type 1 diabetes, hypertension, hyperlipidemia, vitamin-D deficiency : w/ few day history nausea/vomiting, found to have laboratories suggestive of DKA-admited to icu for dka ,adelso: needed ivf and insulin-seems dka andaki resolved-transferred to floor physical exam/assessment and plan-as per icu note. Time Spent With Patient Time: Total time managing care of this patient today ____ minutes.
[2024-11-14 16:08] LABS: Glucose, Whole Blood 218 mg/dL (60-115)
[2024-11-14 16:40] LABS: Anion Gap 13 (12-20); Blood Urea Nitrogen 8 mg/dL (9-16); Calcium 8.2 mg/dL (8.4-10.2); Carbon Dioxide 23 mmol/L (22-29); Chloride 105 mmol/L (96-108); Creatinine Clr Calc Pharmacy 165.6; Estimated Glomerular Filt Rate > 60; Glucose Random 232 mg/dL (60-115); Magnesium 1.8 mg/dL (1.6-2.6); Phosphorus 2.3 mg/dL (2.7-4.5); Potassium 3.5 mmol/L (3.3-5.1); Sodium 137 mmol/L (135-145)
[2024-11-14 20:08] LABS: Anion Gap 14 (12-20); Blood Urea Nitrogen 6 mg/dL (9-16); Calcium 8.3 mg/dL (8.4-10.2); Carbon Dioxide 23 mmol/L (22-29); Chloride 105 mmol/L (96-108); Creatinine Clr Calc Pharmacy 156.4; Estimated Glomerular Filt Rate > 60; Glucose Random 214 mg/dL (60-115); Magnesium 1.9 mg/dL (1.6-2.6); Phosphorus 2.2 mg/dL (2.7-4.5); Potassium 3.6 mmol/L (3.3-5.1); Sodium 138 mmol/L (135-145)
[2024-11-14 20:15] LABS: Glucose, Whole Blood 204 mg/dL (60-115)
[2024-11-15 00:47] LABS: Anion Gap 12 (12-20); Blood Urea Nitrogen 7 mg/dL (9-16); Calcium 8.4 mg/dL (8.4-10.2); Carbon Dioxide 25 mmol/L (22-29); Chloride 105 mmol/L (96-108); Creatinine Clr Calc Pharmacy 154.3; Estimated Glomerular Filt Rate > 60; Glucose Random 186 mg/dL (60-115); Magnesium 1.9 mg/dL (1.6-2.6); Phosphorus 2.3 mg/dL (2.7-4.5); Potassium 3.3 mmol/L (3.3-5.1); Sodium 139 mmol/L (135-145)
[2024-11-15 04:00] VITALS: BP 169/103; PULSE 100; RESP 18; TEMP 37.1; O2SAT 99
[2024-11-15] MEDS: Heparin Sodium,Porcine 5,000 UNIT/ML VIAL 5000 UNIT SUBCUT ×3 (04:29→21:11)
[2024-11-15 07:31] VITALS: BP 140/100; PULSE 95; RESP 18; TEMP 37.1; O2SAT 99
[2024-11-15 07:34] LABS: Glucose, Whole Blood 240 mg/dL (60-115)
[2024-11-15] MEDS: Insulin Lispro 100 UNIT/ML 3 ML VIAL SUBCUT ×4 (07:41→21:34)
[2024-11-15] MEDS: Insulin Glargine,Hum.rec.anlog 100 UNIT/ML 10 ML VIAL 30 UNIT SUBCUT (07:41)
[2024-11-15] MEDS: lisinopriL 5 MG TABLET PO (07:41)
[2024-11-15] MEDS: 0.9 % Sodium Chloride Flush 3 ML SYRINGE IVFLUSH ×3 (07:42→21:11)
[2024-11-15] MEDS: Sodium,Potassium Phosphates POWD.PACK 1 PACKET PO ×4 (09:31→21:11)
[2024-11-15] MEDS: Promethazine HCL 25 MG TABLET PO (09:32)
[2024-11-15 09:45] LABS: Basophils Percent Auto 0.4 % (0-2); Eosinophils Percent Auto 0.2 % (0-4); Hematocrit 39.5 % (42.0-52.0); Hemoglobin 14.2 g/dl (14.0-18.0); Imm Gran Abs Auto 0.01 X10*3/uL (0.00-0.03); Imm Gran Pct Auto 0.2 % (0.0-0.4); Lymphocytes Absolute Auto 1.4 X10*3/uL (1.2-4.9); Lymphocytes Percent Auto 24.6 % (20-40); MANUAL DIFF FLAG NO; Mean Corpuscular HGB Conc 35.9 g/dl (31.0-36.0); Mean Corpuscular Hemoglobin 31.1 pg (27.0-33.0); Mean Corpuscular Volume 86.6 fL (80.0-98.0); Mean Platelet Volume 8.7 fL (9.4-12.4); Monocytes Absolute Auto 0.6 X10*3/uL (0.1-1.2); Monocytes Percent Auto 11.3 % (2-11); Neutrophils Absolute Auto 3.6 x10*3/uL (2.0-8.3); Neutrophils Percent Auto 63.3 % (45-73); Platelet Count 188 X10*3/uL (160-400); Red Blood Count 4.56 X10*6/uL (4.60-5.80); Red Cell Distribution Width 11.1 % (11.0-16.0); White Blood Count 5.7 X10*3/uL (4.8-10.8)
[2024-11-15 10:02] LABS: Anion Gap 16 (12-20); Blood Urea Nitrogen 8 mg/dL (9-16); Calcium 8.6 mg/dL (8.4-10.2); Carbon Dioxide 22 mmol/L (22-29); Chloride 102 mmol/L (96-108); Creatinine Clr Calc Pharmacy 158.6; Estimated Glomerular Filt Rate > 60; Glucose Random 236 mg/dL (60-115); Potassium 3.6 mmol/L (3.3-5.1); Sodium 136 mmol/L (135-145)
[2024-11-15 11:12] LABS: Glucose, Whole Blood 204 mg/dL (60-115)
[2024-11-15 15:18] VITALS: BP 163/103; PULSE 98; RESP 19; TEMP 37.1; O2SAT 99
--- NOTE | 2024-11-15 15:58 | P.PNIM_ITS ---
Subjective Subjective Date of Service: 11/15/24 Interval History: dka Review of Systems nausea somewhat similar -causing dec po intake Physical Exam 2 Vital Signs: Vital Signs: Last Vital Signs Temp 98.7 F 11/15/24 15:18 Pulse 98 11/15/24 15:18 Resp 19 11/15/24 15:18 BP 163/103 H 11/15/24 15:18 Pulse Ox 99 11/15/24 15:18 O2 Del Method Room Air 11/15/24 15:18 BMI result Body Mass Index 22.5 Appearance: Alert.? Oriented X3.? cvs: [id number], [id number]. res: clear to auscultation .g abd: soft,nt, bs present. ext pulses present , no cyanosis. neuro: axo3 , nonfocal. Objective Data Active Medications Dextrose (Dextrose 50 % 25 Gm/50 Ml Syringe) 25 gm IVPUSH Q15M PRN; Protocol PRN Reason: per Hypoglycemia Standing Ord. Glucose (Glucose Gel 15 Gm Gel..Gram.) 15 gm PO Q15M PRN; Protocol PRN Reason: per Hypoglycemia Standing Ord. Heparin Sodium (Porcine) (Heparin Sodium,Porcine 5,000 Unit/Ml Vial) 5,000 unit SUBCUT Q8H [facility] Last Admin: 11/15/24 11:35 Dose: 5,000 unit Documented By: ALIE Insulin Glargine (Insulin Glargine,Hum.Rec.Anlog 100 Unit/Ml 10 Ml Vial) 30 unit SUBCUT DAILY [facility] Last Admin: 11/15/24 07:41 Dose: 30 unit Documented By: ALIE Insulin Human Lispro (Insulin Lispro 100 Unit/Ml 3 Ml Vial) 0 unit SUBCUT QIDACHS [facility]; Protocol Last Admin: 11/15/24 11:34 Dose: 4 unit Documented By: ALIE Lisinopril (Lisinopril 5 Mg Tablet) 5 mg PO DAILY [facility]; Protocol Last Admin: 11/15/24 07:41 Dose: 5 mg Documented By: ALIE Ondansetron HCl (Ondansetron Hcl 4 Mg/2 Ml Vial) 4 mg IVPUSH Q8H PRN PRN Reason: Nausea and Vomiting Last Admin: 11/14/24 16:35 Dose: 4 mg Documented By: ALIE Potassium Phos/Sodium Phos (Sodium,Potassium Phosphates Powd.Pack) 1 packet PO QID [facility] Last Admin: 11/15/24 11:35 Dose: 1 packet Documented By: ALIE Sodium Chloride (0.9 % Sodium Chloride Flush 3 Ml Syringe) 3 ml IVFLUSH QSHIFT [facility] Last Admin: 11/15/24 11:35 Dose: 3 ml Documented By: ALIE Labs 11/15/24 09:25 11/15/24 09:25 Labs: Laboratory Results - last 24 hr 11/14/24 11/14/24 11/14/24 16:00 16:04 19:35 MCV MCH MCHC RDW Plt Count MPV Immature Gran % (Auto) Neut % (Auto) Lymph % (Auto) [place] % (Auto) Eos % (Auto) Baso % (Auto) Lymph # (Auto) [place] # (Auto) Eos # (Auto) Baso # (Auto) Abs Immat Gran (auto) Absolute Neuts (auto) Absolute Nucleated RBC Nucleated RBC % (auto) Anion Gap 13 14 Estim Creat Clear Calc 165.6 156.4 Estimated GFR > 60 > 60 POC Glucose 218 H Random Glucose 232 H 214 H Calcium 8.2 L 8.3 L Phosphorus 2.3 L 2.2 L Magnesium 1.8 1.9 11/14/24 11/15/24 11/15/24 20:11 00:21 07:30 MCV MCH MCHC RDW Plt Count MPV Immature Gran % (Auto) Neut % (Auto) Lymph % (Auto) [place] % (Auto) Eos % (Auto) Baso % (Auto) Lymph # (Auto) [place] # (Auto) Eos # (Auto) Baso # (Auto) Abs Immat Gran (auto) Absolute Neuts (auto) Absolute Nucleated RBC Nucleated RBC % (auto) Anion Gap 12 Estim Creat Clear Calc 154.3 Estimated GFR > 60 POC Glucose 204 H 240 H Random Glucose 186 H Calcium 8.4 Phosphorus 2.3 L Magnesium 1.9 11/15/24 11/15/24 09:25 11:08 MCV 86.6 MCH 31.1 MCHC 35.9 RDW 11.1 Plt Count 188 MPV 8.7 L Immature Gran % (Auto) 0.2 Neut % (Auto) 63.3 Lymph % (Auto) 24.6 [place] % (Auto) 11.3 H Eos % (Auto) 0.2 Baso % (Auto) 0.4 Lymph # (Auto) 1.4 [place] # (Auto) 0.6 Eos # (Auto) 0.0 Baso # (Auto) 0.0 Abs Immat Gran (auto) 0.01 Absolute Neuts (auto) 3.6 Absolute Nucleated RBC 0.000 Nucleated RBC % (auto) 0.0 Anion Gap 16 Estim Creat Clear Calc 158.6 Estimated GFR > 60 POC Glucose 204 H Random Glucose 236 H Calcium 8.6 Phosphorus 2.0 L Magnesium 2.0 Microbiology Microbiology Results: Microbiology 11/13/24 10:19 Blood Culture - Preliminary Blood - Venous No growth after 48 hours. 11/13/24 10:14 Blood Culture - Preliminary Blood - Venous No growth after 48 hours. Assessment and Plan (1) DKA (diabetic ketoacidosis): Status: Acute Plan 34 y/O m with a past medical history of type 1 diabetes, hypertension, hyperlipidemia, vitamin-D deficiency : w/ few day history nausea/vomiting, found to have laboratories suggestive of DKA-admited to icu for dka ,adelso: needed ivf and insulin-seems dka andaki resolved-transferred to floor DKa: Fs flactuating dec po inatke plan: continue lantus ,antiemtics,ivf htn: cotninue lisinopril. dvt prophylax:on s/c heparin need for stay-dec po inatke /nausea -recent dka with flactuating fs and dec po intake-need close monitering of fs and gi symptoms. Quality Stroke Does the patient have a stroke diagnosis?: No VTE Prior VTE?: No VTE Risk Level:: Medical - moderate - high VTE Device Contraindication: N/A - Device Ordered VTE Drug Contraindication: N/A - Med Ordered
[2024-11-15 16:15] LABS: Glucose, Whole Blood 218 mg/dL (60-115)
--- NOTE | 2024-11-15 16:37 | MHC.CM.PN ---
PER MD ROUNDS, PT EXPECTED TO REMAIN INPT 1-2 MORE DAYS DCP: HOME NO SERVICES
[2024-11-15 19:33] VITALS: BP 158/102; PULSE 108; RESP 16; TEMP 36.6; O2SAT 100
[2024-11-15 21:26] LABS: Glucose, Whole Blood 166 mg/dL (60-115)
[2024-11-16 00:32] VITALS: BP 144/102; PULSE 91; RESP 16; TEMP 36.7; O2SAT 98
[2024-11-16 04:00] VITALS: BP 138/95; PULSE 93; RESP 16; TEMP 37.1; O2SAT 99
[2024-11-16] MEDS: Heparin Sodium,Porcine 5,000 UNIT/ML VIAL 5000 UNIT SUBCUT (06:19)
[2024-11-16 07:04] LABS: MANUAL DIFF FLAG NO
[2024-11-16 07:06] LABS: Basophils Percent Auto 0.4 % (0-2); Eosinophils Percent Auto 0.8 % (0-4); Hematocrit 37.2 % (42.0-52.0); Hemoglobin 13.9 g/dl (14.0-18.0); Imm Gran Abs Auto 0.03 X10*3/uL (0.00-0.03); Imm Gran Pct Auto 0.6 % (0.0-0.4); Lymphocytes Absolute Auto 2.1 X10*3/uL (1.2-4.9); Lymphocytes Percent Auto 40.3 % (20-40); Mean Corpuscular HGB Conc 37.4 g/dl (31.0-36.0); Mean Corpuscular Hemoglobin 31.4 pg (27.0-33.0); Mean Corpuscular Volume 84.2 fL (80.0-98.0); Mean Platelet Volume 8.8 fL (9.4-12.4); Monocytes Absolute Auto 0.5 X10*3/uL (0.1-1.2); Monocytes Percent Auto 10.6 % (2-11); Neutrophils Absolute Auto 2.4 x10*3/uL (2.0-8.3); Neutrophils Percent Auto 47.3 % (45-73); Platelet Count 171 X10*3/uL (160-400); Red Blood Count 4.42 X10*6/uL (4.60-5.80); Red Cell Distribution Width 10.9 % (11.0-16.0); White Blood Count 5.1 X10*3/uL (4.8-10.8)
[2024-11-16 07:21] VITALS: BP 159/108; PULSE 98; RESP 20; TEMP 36.7; O2SAT 100
[2024-11-16 07:21] LABS: Glucose, Whole Blood 158 mg/dL (60-115)
[2024-11-16] MEDS: Insulin Lispro 100 UNIT/ML 3 ML VIAL SUBCUT ×2 (08:13→12:06)
[2024-11-16] MEDS: lisinopriL 5 MG TABLET PO (08:13)
[2024-11-16] MEDS: Sodium,Potassium Phosphates POWD.PACK 1 PACKET PO ×2 (08:13→12:06)
[2024-11-16] MEDS: Insulin Glargine,Hum.rec.anlog 100 UNIT/ML 10 ML VIAL 30 UNIT SUBCUT (08:13)
[2024-11-16] MEDS: 0.9 % Sodium Chloride Flush 3 ML SYRINGE IVFLUSH (08:16)
--- NOTE | 2024-11-16 11:16 | PM.DS ---
DS: Providers Provider Date of Service: 11/16/24 Date of admission: 11/13/24 11:34 Date of discharge: 11/16/24 Primary care physician: Jorge Caballero MD Attending physician on discharge: Juan F Peña Discharging clinician: Juan F Peña DS: Diagnosis Discharge Diagnosis (1) DKA (diabetic ketoacidosis): Status: Acute DS: Summary Hospital Course Hospital Course: HPI:34 Y M w/ hypertension, hyperlipidemia, type I diabetes mellitus, presenting initially to emergency department on 11/13 w/ few day history nausea/vomiting, found to have laboratories suggestive of DKA; upon further history-taking, patient reports sick contacts at home, all family members afflicted w/ viral syndrome. Hospital course: 34 y/O m with a past medical history of type 1 diabetes, hypertension, hyperlipidemia, vitamin-D deficiency : w/ few day history nausea/vomiting, found to have laboratories suggestive of DKA-admited to icu for dka ,melody: needed ivf and insulin-seems dka and melody resolved. patient lantus adjusted to 30 units -fs seems improving , diabetic education given, closely monitor fingerstick at home. Further management out patiently PCP. MELODY resolved: Encouraged for hydration, renal function is back to baseline. Monitor BMP outpatient. Hypotension: Somewhat suboptimal, lisinopril adjusted to 10 mg daily. plan: Advised for compliance to diabetic diet as well as insulin. Diabetic education given Lantus adjusted to 30 units. Lisinopril adjusted to 10 mg daily Monitor BMP out patiently in 1 week. Above management discussed with the patient detail length he understand and in agreement with the above plan, time spent 40 minute. Time Attestation Total time managing care of this patient today: 40 mintues. Discharge Coordination Time (in mins): 40 min Quality: Safe Use of Opioids Does Pt have an Active Cancer Diagnosis on the Problem List?: No Quality: Stroke Does the patient have a stroke diagnosis?: No Physical Exam Vital Signs: Vital Signs: Last Vital Signs Temp 98.1 F 11/16/24 07:21 Pulse 98 11/16/24 07:21 Resp 20 11/16/24 07:21 BP 159/108 H 11/16/24 07:21 Pulse Ox 100 11/16/24 07:21 O2 Del Method Room Air 11/16/24 07:21 BMI result Body Mass Index 22.5 Appearance: Alert.? Oriented X3.? cvs: rrr, [id number] . res: clear to auscultation ,no rhonchii or wheezing abd: no rebound or guarding ,nt, bs present. ext pulses present , no cyanosis . neuro: axo3 , nonfocal. DS: Data Data Completed and Pending Completed studies during hospitalization [Text1]: Procedures Introduction of Remdesivir Anti-infective into Peripheral Vein, Percutaneous Approach, [employer] 5 (09/14/21) Labs on day of discharge: Laboratory Results - last 24 hr 11/15/24 11/15/24 11/16/24 16:12 21:22 06:54 WBC 5.1 RBC 4.42 L Hgb 13.9 L Hct 37.2 L MCV 84.2 MCH 31.4 MCHC 37.4 H RDW 10.9 L Plt Count 171 MPV 8.8 L Immature Gran % (Auto) 0.6 H Neut % (Auto) 47.3 Lymph % (Auto) 40.3 H [place] % (Auto) 10.6 Eos % (Auto) 0.8 Baso % (Auto) 0.4 Lymph # (Auto) 2.1 [place] # (Auto) 0.5 Eos # (Auto) 0.0 Baso # (Auto) 0.0 Abs Immat Gran (auto) 0.03 Absolute Neuts (auto) 2.4 Absolute Nucleated RBC 0.000 Nucleated RBC % (auto) 0.0 POC Glucose 218 H 166 H 11/16/24 07:16 WBC RBC Hgb Hct MCV MCH MCHC RDW Plt Count MPV Immature Gran % (Auto) Neut % (Auto) Lymph % (Auto) [place] % (Auto) Eos % (Auto) Baso % (Auto) Lymph # (Auto) [place] # (Auto) Eos # (Auto) Baso # (Auto) Abs Immat Gran (auto) Absolute Neuts (auto) Absolute Nucleated RBC Nucleated RBC % (auto) POC Glucose 158 H Preliminary micro results at discharge 11/13/24 10:19 Blood Culture - Preliminary Blood - Venous No growth after 48 hours. 11/13/24 10:14 Blood Culture - Preliminary Blood - Venous No growth after 48 hours. Discharge Plan Discharge Anticipated Discharge Date/Time: 11/16/24 11:07 Patient Disposition: Home, Self-Care Discharge Diagnosis: dka Referrals: Jorge Caballero MD [Primary Care Provider] - 1 Week Discharge Medications: Continued (DME) FreeStyle Lite Strips Strip See Rx Instructions .ROUTE .COMPLEX Qty: 100 3RF Dose Instruction: USE TO TEST THREE TIMES A DAY Rx Instructions: USE TO TEST THREE TIMES A DAY insulin lispro [Admelog SoloStar U-100 Insulin] 100 unit/mL insulin pen 1 sliding scale dose subcut TIDAC (DME) lancets [FreeStyle Lancets] 28 gauge misc See Rx Instructions .ROUTE .MEDSUPPLY Qty: 100 12RF Rx Instructions: As directed Changed lisinopril 5 mg tablet 10 mg PO DAILY 30 Days Qty: 180 3RF insulin glargine [Lantus Solostar U-100 Insulin] 100 unit/mL (3 mL) insulin pen 30 unit subcut BEDTIME Qty: 10 0RF Rx Instructions: as directed Discharge Orders: Discharge Order (Routine); Ordered 11/16/24 Ordered By: Juan F Peña Diet: Advance to usual diet Activity on Discharge: As tolerated Stand Alone Forms: Patient Portal Discharge page Print Language: Kiswahili Other Ambulatory Orders: Basic Metabolic Panel (Routine) Timeframe: 1 Week Facility: [facility] - Location: Laboratory Ordered By: Juan F Peña Care Plan Goals: 34 y/O m with a past medical history of type 1 diabetes, hypertension, hyperlipidemia, vitamin-D deficiency : w/ few day history nausea/vomiting, found to have laboratories suggestive of DKA-admited to icu for dka ,melody: needed ivf and insulin-seems dka and melody resolved. patient lantus adjusted to 30 units -fs seems improving , diabetic education given, closely monitor fingerstick at home. Further management out patiently PCP. MELODY resolved: Encouraged for hydration, renal function is back to baseline. Monitor BMP outpatient. Hypotension: Somewhat suboptimal, lisinopril adjusted to 10 mg daily. Health Concerns: As above. Plan of Treatment: Advised for compliance to diabetic diet as well as insulin. Diabetic education given Lantus adjusted to 30 units. Lisinopril adjusted to 10 mg daily Monitor BMP out patiently in 1 week. Assessment: As above. Patient Instructions: Hypertension and Diabetes (DC)
--- NOTE | 2024-11-16 11:31 | P.CDIM_ITS ---
PROVIDER RESPONSE TEXT: To clarify, the appropriate diagnosis supported by the clinical indicators: Acute kidney injury QUERY TEXT: PHYSICIAN'S DOCUMENTATION REQUEST Date of Query: 11/16/2024 11:05 AM EST Patient Name: Addison aCn Admit Date: 11/13/2024 Dear Juan F Peña MD, A review of the medical record indicates additional documentation may be needed. Please review below and update the documentation accordingly. Clinical Indicators: ICU H&P 11/13 - Acute renal insufficiency, likely pre-renal; closely monitor renal indices. ICU progress note 11/14 - Acute renal insufficiency Progress note dated 11/15 - History of nausea and vomiting found to have laboratories suggestive of DK A, admitted to ICU for DKA, MELODY needed IVF and Insulin. Seems DKA and MELODY resolved. Clarity of the noted between MELODY and the noted Acute renal insufficiency: Acute kidney injury Acute kidney insufficiency Other (explain) Clinically unable to determine (explain) Thank you, Heide Barron, CCS, CDIS Use of terms such as suspected, likely, concern for, or probable (associated with a specific diagnosi s that is being evaluated, monitored, or treated as if it exists) are acceptable and can be coded in the inpatient se tting, when documented at the time of discharge. Please use your independent medical judgment in providing your response. THIS QUERY IS PART OF THE PERMANENT MEDICAL RECORD
[2024-11-16 11:34] LABS: Glucose, Whole Blood 236 mg/dL (60-115)
--- NOTE | 2024-11-16 11:34 | MHC.CM.PN ---
PT MEDICALLY CLEARED FOR DC HOME SELF CARE, PT WILL ARRANGE RIDE HOME.
== END 2024-11-16 13:37 | disposition home or self-care (01) | DRG 420 ==
LOC: HO.ED 11:36 → HO.EDOVER 11:41 → HO.ICU 11:52 → HO.IMC 11-14 10:43
PROVIDERS: Admitting Provider Internal Medicine Critical Care Medicine; Emergency Provider Emergency Medicine; PCP Internal Medicine; Visit Provider Internal Medicine
DX: E11.10 Type 2 diabetes mellitus with ketoacidosis without coma (principal); N17.9 Acute kidney failure, unspecified; E55.9 Vitamin D deficiency, unspecified; I95.9 Hypotension, unspecified; I10 Essential (primary) hypertension; E78.5 Hyperlipidemia, unspecified; Z20.822 Contact with and (suspected) exposure to COVID-19; Z79.899 Other long term (current) drug therapy
CPT/HCPCS: 0241U; 36415; 71045; 80048; 80053; 81003; 82010; 82803; 82947; 83605; 83735; 84100; 85025; 87040; 93005; 99285; J1644; J2405; J3475; J3480; J7120

== ENCOUNTER → 2024-11-13 10:09 | Outpatient (BNV) | payer OTHER, SELFPAY | PROVIDERS: Admitting Provider Internal Medicine Critical Care Medicine; Emergency Provider Emergency Medicine; PCP Internal Medicine; Visit Provider Internal Medicine | DX: R00.0 Tachycardia, unspecified (principal) | CPT/HCPCS: 93010 ==

== ENCOUNTER 2024-11-13 11:34 | Outpatient (BNV) | payer OTHER, SELFPAY | END 2024-11-13 11:45 | PROVIDERS: Admitting Provider Internal Medicine Critical Care Medicine; Emergency Provider Emergency Medicine; PCP Internal Medicine; Visit Provider Radiology Diagnostic Radiology | DX: E11.10 Type 2 diabetes mellitus with ketoacidosis without coma (principal) | CPT/HCPCS: 71045 ==

== ENCOUNTER → 2024-11-13 11:34 | Outpatient (BNV) | payer OTHER, SELFPAY | PROVIDERS: Admitting Provider Internal Medicine Critical Care Medicine; Emergency Provider Emergency Medicine; PCP Internal Medicine; Visit Provider Internal Medicine | DX: E11.10 Type 2 diabetes mellitus with ketoacidosis without coma (principal) | CPT/HCPCS: 99231; 99239; 99499 ==

== ENCOUNTER → 2024-11-13 11:34 | Outpatient (BNV) | payer OTHER, SELFPAY | PROVIDERS: Admitting Provider Internal Medicine Critical Care Medicine; Emergency Provider Emergency Medicine; PCP Internal Medicine; Visit Provider Internal Medicine Critical Care Medicine | DX: E11.10 Type 2 diabetes mellitus with ketoacidosis without coma (principal) | CPT/HCPCS: 99223 ==

== ENCOUNTER 2024-11-29 09:54 | Outpatient (REF) | payer OTHER, SELFPAY ==
--- OUTSIDE RECORDS SUMMARY | 2024-11-29 10:52 | XMS_ITS | Encounter Summary ---
Author Organization [facility] Address [address] [place] [address] Phone Care Team Providers Care Supervisor Lace Tearing Name Role Phone Bandar Woodard MD Primary Care Provider [phone] Encounter Details Date Type Department Care Team (Late st Contact Info) Description 05/08/2017 Conversion Encounter [facility] [place] [address] [place] [address] Social History Tobacco Use Types Packs/Day Years [...] on filedocumented in this encounter Care Teams Supervisor Lace Tearing Relationship Specialty Start Date End Date Bandar Woodard MD [address] [place] [address] PCP - General 05/02/17 11/21/22 documented as of this encounter
--- OUTSIDE RECORDS SUMMARY | 2024-11-29 10:53 | XMS_ITS | Clinical Summary ---
Author Organization [facility] Address [address] [place] [phone] Phone Care Team Providers Care Financial Advocate Name Role Phone Unavailable Primary Care Provider [...] of 2 - 13+ 2-dose series) 2005 DTaP,Tdap,and Td Vaccines (7 - Td or [...]
[2024-11-29 11:24] LABS: Anion Gap 12 (12-20); Blood Urea Nitrogen 14 mg/dL (9-16); Calcium 9.5 mg/dL (8.4-10.2); Carbon Dioxide 29 mmol/L (22-29); Chloride 104 mmol/L (96-108); Estimated Glomerular Filt Rate > 60; Glucose Random 324 mg/dL (60-115); Potassium 4.5 mmol/L (3.3-5.1); Sodium 140 mmol/L (135-145)
== END 2024-11-29 09:55 | disposition home or self-care (01) ==
LOC: HO.LAB 09:54
PROVIDERS: PCP Internal Medicine; Visit Provider Internal Medicine
DX: E11.10 Type 2 diabetes mellitus with ketoacidosis without coma (principal); N17.9 Acute kidney failure, unspecified
CPT/HCPCS: 36415; 80048

== ENCOUNTER 2024-12-14 15:57 | Outpatient (AMB) | payer OTHER, SELFPAY ==
--- NOTE | 2024-12-14 16:15 | A.OFFPC_ITS ---
Vital Signs 12/14/24 16:22 Height 6 ft Weight 193 lb 6 oz BMI 26.2 BP 138/86 Blood Pressure Location Lt brachial Position Sitting Pulse 112 H Pulse Source Pulse Oximeter Pulse Oximetry (%) 98 Oxygen Delivery Method Room Air Intake Visit Reasons: Annual PE Chief Media Officer Required: No Accompanied by: Self / Same As Patient Allergies No Known Allergies [No Known Allergies*] Allergy (Verified 12/14/24 17:02) Medication List - Last Reconciled 12/14/24 by Jorge Caballero MD blood sugar diagnostic (FreeStyle Lite Strips) USE TO TEST THREE TIMES A DAY insulin glargine (Lantus Solostar U-100 Insulin) 30 units (0.3 mL) subcut BEDTIME insulin lispro (Admelog SoloStar U-100 Insulin lispro) 1 sliding scale dose subcut TIDAC lancets (FreeStyle Lancets) As directed lisinopril 10 mg (2 x 5 mg) PO DAILY 30 days Tobacco use date assessed: 12/14/24 Dental Screening Dental Screen Date: 12/14/24 Did you have a dental visit in the last 12 months?: No Did you have a dental problem in the last 6 months where you did not have access to dental care?: No Was dental information given to patient?: No HPI Annual PE HPI Details Patient comes in today for his annual physical examination - he has not been back since his last physical exam 03/03/2023 He was admitted to [facility] for a few days last month for DKA after he presented to the ER with persistent nausea and vomiting for 3 days He was managed medically was eventually discharged back home after a few days when his symptoms improve Patient admits that he has not been very compliant with his diet and medications over the past couple of years but is now ready to try to get his diabetes under control He is currently on Lantus 30 units daily at bedtime and Admelog dosed according to his sliding scale 3 times a day with meals for his type 1 diabetes He also used to follow-up with endocrinology but has not seen them in a few years Adds that he has had a large sore on the right side of his jaw for about a month now - states that it started out as a small pimple-like lesion that has gradually gotten bigger and that it has been draining some whitish to yellowish fluid every few days He would like to see if he can be prescribed some medication to help clear this up States that he feels okay otherwise He denies any fever, headaches or dizziness Denies any chest pains, no shortness of breath No nausea/vomiting, no abdominal pain No change in bowel habits noted He denies any acute urinary symptoms but reports experiencing urinary frequency that he is aware is due to his high blood sugar readings [facility] Medical History (Updated 12/15/24 @ 03:34 by Jorge Caballero MD) Mixed hyperlipidemia Pneumonia due to COVID-19 virus Vitamin D deficiency HLD (hyperlipidemia) HTN (hypertension) T1DM (type 1 diabetes mellitus) Overweight (BMI 25.0-29.9) Surgical History No significant past surgical history Family History Father Diabetes mellitus Hypertension Mother Hypertension Social History Household Members: Family Housing: House Do you presently have visiting nurse or other home services: No Alcohol intake: current Alcohol intake frequency: 3 or more drinks per day Patient Tobacco Use Status: Never used Tobacco e-Cigarette/Vaping Use: Never Used Substance Use Type: Marijuana service: No Current occupational status: employed Cognitive needs: No Hearing needs: No Vision needs: No Questionnaire PHQ-9 Over the last 2 weeks, how often have you been bothered by any of the following problems? 1. Little interest or pleasure in doing things: not at all 2. Feeling down, depressed, or hopeless: not at all 3. Trouble falling or staying asleep, or sleeping too much: not at all 4. Feeling tired or having little energy: not at all 5. Poor appetite or overeating: not at all 6. Feeling bad about yourself - or that you are a failure or have let yourself or your family down: not at all 7. Trouble concentrating on things, such as reading the newspaper or watching television: not at all 8. Moving or speaking so slowly that other people could have noticed. Or the opposite - being so fidgety or restless that you have been moving around a lot more than usual: not at all 9. Thoughts that you would be better off or of hurting yourself in some way: not at all Total score: 0 Depression Screening Interpretation: Negative Depression Screening Done: Yes 89036 - PHQ-9 Billing: Yes Source: Developed by Drs. Willam Nunez, Nataliia Valentine, Salvatore Wilkerson and colleagues, with an educational marissa from [employer]. Thrive Questionnaire Date Thrive assessed: 12/14/24 I am a: Patient What is your living situation today?: I have a steady place to live Within the past 12 months, did the food you bought not last and you didn't have the money to get more?: I choose not to answer this question Within the past 12 months, did you worry whether your food would run out before you got money to buy more?: I choose not to answer this question Do you have trouble paying for medicines?: No Do you have trouble getting transportation to medical appointments?: No Do you have trouble paying your heating and electricity bill?: No Do you have trouble taking care of your child, family member or friend?: No Do you have trouble with day-to-day activities such as bathing, preparing meals, shopping, managing finances, etc.?: No Are you currently unemployed and looking for a job?: No Are you interested in more education?: No Please select the resources that you would like help with: None Currently or been in a relationship where the following occur: No concerns reported THRIVE Score: 0 AUDIT C Alcohol Use Questionnaire (AUDIT-C) 1. How often do you have a drink containing alcohol?: 2-3 times a week 2. How many drinks containing alcohol do you have on a typical day when you are drinking?: 3 or 4 3. How often do you have six or more drinks on one occasion?: Monthly Total Score: 6 Score Reviewed/Action Taken: Yes (Patient is encouraged to try cutting back on his drinking) KIERA-7 AMB Questionnaire KIERA-7 Date KIERA - 7 assessed: 12/14/24 Feeling nervous, anxious, or on edge: 0 = Not at all Not being able to stop or control worryin = Not at all Worrying too much about different things: 0 = Not at all Trouble relaxin = Not at all Being so restless that it is hard to sit still: 0 = Not at all Becoming easily annoyed or irritable: 0 = Not at all Feeling afraid as if something awful might happen: 0 = Not at all Total KIERA-7 score (0-4 normal; 5-9 mild; 10-14 moderate; 15-21 severe): 0 Source: Developed by Drs. Willam Nunez, Nataliia Valentine, Salvatore Wilkerson and colleagues, with an educational marissa from [employer]. Review of Systems Const Denies chills, Denies fatigue, Denies fever(s), Denies headache(s), Denies malaise and Denies weakness Eyes Denies blurry vision, Denies change in vision, Denies irritation and Denies itchy eyes ENT Denies dysphagia, Denies dizziness, Denies otalgia, Denies headache(s), Denies nasal congestion, Denies neck pain, Denies odynophagia and Denies sore throat Card Denies chest pain, Denies rapid heart rate, Denies irregular heart rhythm, Denies palpitations and Denies dyspnea Resp Denies chest congestion, Denies cough, Denies dyspnea and Denies wheezing GI Denies abdominal pain, Denies bloating, Denies constipation, Denies dysphagia, Denies heartburn, Denies diarrhea, Denies nausea, Denies odynophagia and Denies vomiting Denies hematuria, Denies difficulty urinating, Denies dysuria, Reports nocturia, Reports urinary frequency and Denies urinary urgency Musc Denies back pain, Denies arthralgias, Denies joint swelling, Denies muscle weakness and Denies neck pain Skin/Breast Details: (+) large open skin lesion/sore over the right jaw Denies change in pigmentation, Denies rash and Denies unusual bruising Neuro Denies dizziness, Denies headache(s), Denies paresthesias and Denies weakness Endo Denies fatigue and Denies palpitations Aller/Immun Denies itchy eyes and Denies wheezing Physical exam (Primary Care) Vital Signs: Last Vital Signs Pulse 112 H 12/14/24 16:22 BP 138/86 12/14/24 16:22 Pulse Ox 98 12/14/24 16:22 Oxygen Delivery Method Room Air 12/14/24 16:22 BMI result Body Mass Index 26.2 Tobacco/Smoking Status: Tobacco use Status Tobacco use date assessed 12/14/24 12/14/24 16:34 Patient Tobacco Use Status Never used Tobacco 12/14/24 16:16 e-Cigarette/Vaping Use Never Used 12/14/24 16:16 PHQ-9: PHQ-9 Score PHQ-9: Total score 0 12/14/24 17:13 Depression Screening Interpretation: Negative Thrive Assessment: Date of Thrive Assessment Date Thrive assessed 12/14/24 12/14/24 16:34 Currently or been in a relationship where the following occur: No concerns reported Const General: no acute distress, alert and awake Orientation/consciousness: patient oriented x3 HENMT Head: Yes normocephalic and Yes atraumatic Ears: external ears normal, TM's normal bilaterally and EAC's normal General nose exam: No nasal discharge present Face and sinus: Yes normal facial exam and Yes sinuses nontender Teeth and gingiva: dentition normal Throat: Yes posterior oropharynx normal and Yes tonsils normal (no TP congestion) Eyes Eyelids: Yes eyelids normal Conjunctivae: conjunctivae normal Pupils: Equal, round and reactive pupils present EOM: EOMs intact bilaterally Neck Neck: Yes no lymphadenopathy and Yes supple Thyroid: Thyroid normal Resp Auscultation: clear to auscultation bilaterally, no rales and no wheezes Cardio Rate: regular rate Rhythm: regular rhythm Heart sounds: no murmurs GI Palpation (GI): Soft to palpation, nontender and No hepatosplenomegaly present Auscultation: normal bowel sounds General: Yes no CVA tenderness Back/Spine/Pelvis Back: no CVA tenderness Thoracic/Lumbar Spine: thoracic and lumbar spine normal to inspection Skin Other: (+) large open/unroofed follicular skin lesion over the right mandibular area Rashes: no rashes Neuro General: patient oriented x3, moves all extremities, no focal motor deficits and CN's II-XI intact bilaterally Cranial nerves: Yes Equal, round and reactive pupils present Cognition (Neuro): normal cognition Gait exam (Neuro): Normal gait present Extrem General: Yes no clubbing, cyanosis or edema Results Reviewed Results Reviewed: Laboratory Tests 03/19/23 09/30/24 10/07/24 11:30 16:22 14:44 WBC Hgb Hct Plt Count Sodium Potassium Creatinine Estimated GFR Fasting Glucose Hgb A1c (Clinic) 13.7 H Hemoglobin A1c % Calcium Phosphorus Magnesium AST ALT Triglycerides Cholesterol LDL Cholesterol, Calc HDL Cholesterol 25-OH Vitamin D Total Beta-Hydroxybutyrate TSH 1.22 Ur Specific [place] Urine Protein Urine Glucose (UA) Urine Blood Urine Nitrite Ur Leukocyte Esterase Microalb/Creat Ratio 32.2 H 10/07/24 11/13/24 11/14/24 14:52 10:15 11:47 WBC Hgb Hct Plt Count Sodium Potassium Creatinine Estimated GFR Fasting Glucose 286 H Hgb A1c (Clinic) Hemoglobin A1c % 12.6 H Calcium Phosphorus Magnesium AST 24 ALT 25 Triglycerides 171 H Cholesterol 164 LDL Cholesterol, Calc 95 HDL Cholesterol 35 L 25-OH Vitamin D Total 16.9 L Beta-Hydroxybutyrate 9.80 H TSH Ur Specific [place] 1.025 Urine Protein Trace Urine Glucose (UA) 500 H Urine Blood Negative Urine Nitrite Negative Ur Leukocyte Esterase Negative Microalb/Creat Ratio 11/15/24 11/16/24 11/29/24 09:25 06:54 10:02 WBC 5.1 Hgb 13.9 L Hct 37.2 L Plt Count 171 Sodium 140 Potassium 4.5 D Creatinine 0.74 Estimated GFR > 60 Fasting Glucose Hgb A1c (Clinic) Hemoglobin A1c % Calcium 9.5 D Phosphorus 2.0 L Magnesium 2.0 AST ALT Triglycerides Cholesterol LDL Cholesterol, Calc HDL Cholesterol 25-OH Vitamin D Total Beta-Hydroxybutyrate TSH Ur Specific [place] Urine Protein Urine Glucose (UA) Urine Blood Urine Nitrite Ur Leukocyte Esterase Microalb/Creat Ratio Coding Level of Care Code Est Pt Prev Care [id number]([id number]) Diagnoses Annual physical exam Z00.00 Type 1 diabetes mellitus with hyperglycemia E10.65 Essential hypertension I10 Hypokalemia E87.6 Mixed hyperlipidemia E78.2 Folliculitis L73.9 Overweight (BMI 25.0-29.9) E66.3 Additional Codes PHQ-9 - 23044 - PHQ-9 Billing: Yes ([id number]) Assessment & Plan Assessment & Plan (1) Annual physical exam: Code(s): Z00.00 - Encounter for general adult medical examination without abnormal findings Category: Medical Plan: Results of his labs done at the hospital last month during his admission for DKA reviewed and discussed with patient Will have him recheck his labs in about a month or so, just before his next follow up appointment in early January 2025 (2) Type 1 diabetes mellitus with hyperglycemia: Code(s): E10.65 - Type 1 diabetes mellitus with hyperglycemia Category: Medical Plan: S/P hospital admission for DKA for a few days last month His HgbA1c was at 12.6% when it was most recently checked a couple of months ago on 10/07/2024 Reinforced diabetic diet - goal is HgbA1c of <7.0% Continue Lantus 30 units Q HS and Admelog 3 times a day with meals dosed per sliding scale Will try getting him on a CGM to help make his glucose monitoring more efficient - Rx for IntelliGeneScane 3 system sent to pharmacy Will also refer him to endocrinology for further evaluation and management (3) Essential hypertension: Code(s): I10 - Essential (primary) hypertension Category: Medical Plan: Reinforced low sodium diet - goal is systolic BP of 120 mm or less Continue Lisinopril 10 mg QD Patient is reminded to monitor his blood pressure regularly (4) Hypokalemia: Code(s): E87.6 - Hypokalemia Category: Medical Plan: His potassium level was normal when last checked a couple of weeks ago Will continue to monitor this regularly (5) Mixed hyperlipidemia: Code(s): E78.2 - Mixed hyperlipidemia Category: Medical Plan: His serum triglyceride level was still elevated at 171 mg/dl when last checked a couple of months ago in September 2024 LDL cholesterol was reasonable at 95 mg/dl; total cholesterol was at 164 mg/dl Reinforced low cholesterol diet Will have patient recheck his labs and fasting lipids next month (just before his early January 2025 follow up appt) for follow up (6) Folliculitis: Code(s): L73.9 - Follicular disorder, unspecified Category: Medical Plan: Will start patient empirically for now on Doxycycline 100 mg BID x 10 days Patient is advised to continue with daily wound care for the open sore on his right mandible but is encouraged NOT to try 'squeezing out' any pus on his own going forward He is advised that if this does not improve or heal up at his next follow up appt in a few weeks, then we may need to refer him to dermatology for further management (7) Overweight (BMI 25.0-29.9): Code(s): E66.3 - Overweight Category: Medical Plan: Reinforced diet/exercise as tolerated/lose weight Plan Follow up as scheduled in January 2025 Orders: Orders Complete Blood Count Auto Diff 01/15/25 D64.9 - Anemia, unspecified Comprehensive [place]. Panel Fast 01/15/25 E78.00 - Pure hypercholesterolemia, unspecified Microalbumin, Random (w Creat) 01/15/25 E11.9 - Type 2 diabetes mellitus without complications UA CC w/rflx Micro + Cult 01/15/25 R30.0 - Dysuria Vitamin D 25-OH Total 01/15/25 E55.9 - Vitamin D deficiency, unspecified Lipid Panel 01/15/25 E78.00 - Pure hypercholesterolemia, unspecified Hemoglobin A1c 01/15/25 E11.9 - Type 2 diabetes mellitus without complications TSH reflex Free T4 01/15/25 E78.00 - Pure hypercholesterolemia, unspecified Referrals Endocrinology Referral E10.65 - Type 1 diabetes mellitus with hyperglycemia, E11.10 - Type 2 diabetes mellitus with ketoacidosis without coma Medications: New FreeStyle Tony 3 [place] (blood-glucose meter,continuous) As directed 1 ea 5RF NS E10.65 - Type 1 diabetes mellitus with hyperglycemia, E11.10 - Type 2 diabetes mellitus with ketoacidosis without coma blood-glucose sensor (FreeStyle Tony 3 Sensor device) As directed 1 ea 5RF E10.65 - Type 1 diabetes mellitus with hyperglycemia, E11.10 - Type 2 diabetes mellitus with ketoacidosis without coma doxycycline hyclate 100 mg PO BID 10 days 20 caps 0RF
[2024-12-14 16:22] VITALS: BP 138/86; PULSE 112; O2SAT 98; BMI 26.2
--- OUTSIDE RECORDS SUMMARY | 2024-12-14 19:36 | XMS_ITS | Encounter Summary ---
Author Organization [facility] Address [address] [place] [address] Phone Care Team Providers Care Legend Maker Name Role Phone Bandar Woodard MD Primary Care Provider [phone] Encounter Details Date Type Department Care Team (Late st Contact Info) Description 05/08/2017 Conversion Encounter [facility] [place] [address] [place] [address] Social History Tobacco Use Types Packs/Day Years [...] on filedocumented in this encounter Care Teams Legend Maker Relationship Specialty Start Date End Date Bandar Woodard MD [address] [place] [address] PCP - General 05/02/17 11/21/22 documented as of this encounter
--- OUTSIDE RECORDS SUMMARY | 2024-12-14 19:36 | XMS_ITS | Clinical Summary ---
Author Organization [facility] Address [address] [place] [phone] Phone Care Team Providers Care Tours Captain Name Role Phone Unavailable Primary Care Provider [...]
== END 2024-12-14 17:20 | disposition home or self-care (01) ==
LOC: HO.HMCH 15:58
PROVIDERS: PCP Internal Medicine; Visit Provider Internal Medicine
DX: Z00.00 Encounter for general adult medical examination without abnormal findings (principal); E10.65 Type 1 diabetes mellitus with hyperglycemia; I10 Essential (primary) hypertension; E87.6 Hypokalemia; E78.2 Mixed hyperlipidemia; L73.9 Follicular disorder, unspecified; E66.3 Overweight

== ENCOUNTER → 2024-12-14 15:57 | Outpatient (BNVA) | payer OTHER, SELFPAY | PROVIDERS: PCP Internal Medicine; Visit Provider Internal Medicine | DX: Z00.00 Encounter for general adult medical examination without abnormal findings (principal); E10.65 Type 1 diabetes mellitus with hyperglycemia; I10 Essential (primary) hypertension; E87.6 Hypokalemia; E78.2 Mixed hyperlipidemia; L73.9 Follicular disorder, unspecified; E66.3 Overweight; Z68.26 Body mass index [BMI] 26.0-26.9, adult; Z79.4 Long term (current) use of insulin; Z79.899 Other long term (current) drug therapy | CPT/HCPCS: 96127 ==